=== PATIENT | female | born 1965 | race Caucasian/White ===

== ENCOUNTER 2016-08-13 05:45 | Inpatient (IN) | payer OTHER ==
[2016-07-23 08:23] VITALS: BMI 33.0
--- NOTE | 2016-07-23 08:53 | PAT Medication Instructions ---
Service Date Jul 23, 2016. Current Home Medication List Hydrocodone/Acetaminophen 5MG/325MG ([place] 5MG/325MG), 1 TABLET PO Q4H PRN for N Methylprednisolone (Medrol), 4 MG PO UD Omeprazole (Prilosec), 20 MG PO QAM [Augmentin], 1 TAB PO BID [Lisinop/Hctz], 1 TAB PO DAILY Medication Instructions For Your Scheduled Surgery Methylprednisolone (Medrol), 4 MG PO UD (will finish 07/24/16) Augmentin 1 TAB PO BID (will finish 07/29/16) - Hold the following medications the morning of surgery: Lisinopril/Hctz 1 TAB PO DAILY - Take the following medications the morning of surgery with a sip of water: Omeprazole (Prilosec), 20 MG PO QAM Hydrocodone/Acetaminophen 5MG/325MG ([place] 5MG/325MG), 1 TABLET PO Q4H PRN ( can take up to four hours prior to surgery if needed) - Take the following medications as scheduled the night before surgery: Hydrocodone/Acetaminophen 5MG/325MG ([place] 5MG/325MG), 1 TABLET PO Q4H PRN for N If you have any questions please call us at [phone] or [phone] ( Elizabeth) or [phone]
--- NOTE | 2016-07-23 09:41 | DIAGNOSTIC IMAGING REPORT ---
CHEST PREADMISSION(PA/LAT) CLINICAL HISTORY: Preoperative evaluation. COMPARISON STUDY: Chest radiograph August 03, 2015. FINDINGS: Lung volumes are normal. Lungs are clear. There is no pneumothorax or pleural effusion. Pulmonary vascularity is normal. Cardiac size is normal. Mediastinal contours are normal. There is no evidence of pulmonary edema. Lumbar spine fusion hardware is partially imaged. IMPRESSION: No acute cardiopulmonary findings. Electronically signed by: Jas Michaud M.D. 07/23/2016 9:40 AM Dictated Date/Time: 07/23/2016 9:40 AM
[2016-07-23 09:52] LABS: BASO % 0.2 %; BASO ABS # 0.03 K/uL (0-0.2); COMPLETE YES; EOS % 0.3 %; HEMATOCRIT 40.3 % (37-47); IG% 0.2 %; LYMPH % 32.2 %; LYMPH ABS # 4.35 K/uL (1.2-3.4); MEAN CELL VOLUME 89.4 fL (80-100); MEAN CORPUSCULAR HEMOGLOBIN 29.3 pg (25-34); MEAN CORPUSCULAR HGB CONC 32.8 g/dl (32-36); MEAN PLATELET VOLUME 10.3 fL (7.4-10.4); MONO % 11.4 %; NEUT % 55.7 %; PLATELET COUNT 392 K/uL (130-400); RED BLOOD COUNT 4.51 M/uL (4.2-5.4); WHITE BLOOD COUNT 13.52 K/uL (4.8-10.8)
[2016-07-23 10:05] LABS: BUN/CREATININE RATIO 19.7 (10-20); CALCIUM 9.6 mg/dl (8.5-10.1); CREATININE 0.86 mg/dl (0.60-1.20); POTASSIUM 3.2 mmol/L (3.5-5.1)
[2016-07-23 10:15] LABS: URINE APPEARANCE CLEAR (CLEAR); URINE BILIRUBIN NEG (NEG); URINE COLOR YELLOW; URINE NITRITE NEG (NEG); URINE SPECIFIC GRAVITY 1.004 (1.000-1.030); UROBILINOGEN NEG (NEG)
[2016-07-23 10:26] LABS: MANUAL MICROSCOPIC REQUIRED? NO; REVIEW REQ? NO
--- NOTE | 2016-08-12 09:22 | HISTORY & PHYSICAL EXAMINATION ---
DATE OF ADMISSION: 08/13/2016 HISTORY OF PRESENT ILLNESS: The patient presents to our office with complaint of left-sided neck pain radiating down the left arm into the hand. She has trialed physical therapy as well as pain management injections with modest relief. She states the pain is making it difficult for her to perform normal activities. She denies paresthesias, numbness or weakness. Cervical extension as well as rotation to the left side exacerbates her symptoms. She denies bowel or bladder dysfunction. PAST MEDICAL HISTORY: The patient's medical history is significant for arthritis. PAST SURGICAL HISTORY: Significant for knee arthroscopy, carpal tunnel release, , hernia repair, hysterectomy and tempanomastoidectomy. ALLERGIES: INCLUDE NAPROXEN AND ASPIRIN. MEDICATIONS: None listed. SOCIAL HISTORY: She is . 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 Alcohol none. Tobacco is 10 cigarettes a day x 15 years. REVIEW OF SYSTEMS: Significant for neck pain, arm radiculopathy and fatigue. FAMILY HISTORY: Significant for breast cancer and arthritis. PHYSICAL EXAMINATION: VITAL SIGNS: 5 feet 4 inches; 195 pounds. HEENT: Speech appropriate. CARDIOPULMONARY: No gross abnormalities. ABDOMEN: Soft and nondistended. GENITOURINARY: Deferred. NEUROLOGIC: She has a positive Spurling's on the left, but negative on the right. Strength is intact in bilateral upper extremities. No atrophy bilateral upper extremities. No evidence of ankle clonus. ASSESSMENT: Cervical disc herniation and cervical radiculopathy. PLAN: At this point in time, she has failed conservative therapy and may consider surgical intervention. Surgery would require anterior cervical discectomy and fusion at the C3-C4 level. Risks, benefits, pros, cons and alternatives were outlined in detail. She would like to proceed with the above-mentioned surgical planning. JOELLEN
[~2016-08-13] VITALS: Ht 162.6 cm; Wt 88.7 kg
[2016-08-13] VITALS (13 sets, daily range): BP systolic 99–122; BP diastolic 64–76; PULSE 96–105; TEMP 36.4–36.9; O2SAT 95–99; Ht 162.6 cm; Wt 88.7 kg
[~2016-08-13 05:45] MED LIST: AUGMENTIN PO; HYDR-5688 PO; LISINOP/HCTZ PO; METH1TAB81 PO; OMEP20CA9 PO
[2016-08-13] MEDS ORDERED: LACTATED RINGER'S 1000ML 1,000 ML IV SCH (06:00)
[2016-08-13] MEDS ORDERED: CEFAZOLIN 2000 MG/60 ML D5W IV SCH (06:00)
[2016-08-13] MEDS ORDERED: SCOPOLAMINE 1.5 MG TDSY TD SCH (06:00)
[2016-08-13] MEDS ORDERED: FENTANYL CITRATE INJ 50 MCG/1 ML 2 ML VIAL ONE ×4 (06:38→13:45)
[2016-08-13] MEDS ORDERED: MIDAZOLAM HCL 1 MG/ML 2ML VIAL ONE (06:38)
[2016-08-13] MEDS ORDERED: BACITRACIN 50000 UNIT VIAL ONE (07:03)
[2016-08-13] MEDS ORDERED: LACTATED RINGER'S 1000ML 1,000 ML IV PRN (07:24)
--- NOTE | 2016-08-13 07:29 | History & Physical Bridge Note ---
H&P Re-Evaluation Bridge Note: I have examined the patient, reviewed the History & Physical and in the interval since the performance of the History & Physical I have noted the following changes of clinical significance: No changes noted
[2016-08-13] MEDS ORDERED: MoRPHine SULFATE 10 MG/ML CARP/VIAL IV PRN (07:30)
[2016-08-13] MEDS ORDERED: DiphenhydrAMINE HCL 50 MG/ML VIAL IV PRN ×2 (07:30→09:00)
[2016-08-13] MEDS ORDERED: FENTANYL CITRATE INJ 50 MCG/1 ML 2 ML VIAL IV PRN (07:30)
[2016-08-13] MEDS ORDERED: ONDANSETRON INJ 2 MG/ML 2 ML VIAL IV PRN ×2 (07:30→09:00)
[2016-08-13] MEDS ORDERED: HYDROmorphone INJ 2 MG/ML SYR/VIAL ONE (08:05)
[2016-08-13] MEDS ORDERED: LIDOCAINE HCL 2% 2 ML VIAL (20MG/ML) ONE (08:30)
[2016-08-13] MEDS ORDERED: ONDANSETRON INJ 2 MG/ML 2 ML VIAL ONE (08:30)
[2016-08-13] MEDS ORDERED: NEOSTIGMINE METHYLSULFATE 1 MG/ML 10ML VIAL ONE (08:30)
[2016-08-13] MEDS ORDERED: METOCLOPRAMIDE HCL INJ 5 MG/ML 2 ML VIAL ONE (08:30)
[2016-08-13] MEDS ORDERED: PROPOFOL IV EMULSION 10 MG/ML 20 ML VIAL IV ONE (08:30)
[2016-08-13] MEDS ORDERED: RANITIDINE HCL 25 MG/ML INJ ONE (08:30)
[2016-08-13] MEDS ORDERED: ROCURONIUM BROMIDE 10 MG/ML 5 ML VIAL ONE (08:30)
[2016-08-13] MEDS ORDERED: DEXAMETHASONE SOD INJ 4 MG/ML VIAL ONE (08:30)
[2016-08-13] MEDS ORDERED: METOPROLOL TARTRATE 1 MG/ML VIAL ONE (08:30)
[2016-08-13] MEDS ORDERED: GLYCOPYRROLATE INJ 0.2 MG/ML VIAL ONE (08:30)
[2016-08-13] MEDS ORDERED: FLOSEAL HEMOSTATIC MATRIX 5ML TOP ONE (08:47)
--- NOTE | 2016-08-13 08:55 | [facility] Post Operative Brief Note ---
Immediate Operative Summary Operative Date Aug 13, 2016. Pre-Operative Diagnosis Cervical disc herniation and cervical radiculopathy Post-Operative Diagnosis Cervical disc herniation and cervical radiculopathy Procedure(s) Performed acdf Surgeon Dr Randle Coin Machine Collector Surgeon(s) Amber Murillo PA-C Estimated Blood Loss 25 Findings stenosis Specimens None per surgeon
[2016-08-13] MEDS ORDERED: DEXAMETHASONE INJ 8 MG in SYRINGE 0 ML IV PRN (09:00)
[2016-08-13] MEDS ORDERED: RACEPINEPHRINE 2.25% NEBU SOLN 0.5 ML VIAL INH PRN (09:00)
[2016-08-13] MEDS ORDERED: ACETAMINOPHEN IV 1,000 MG in EMPTY BAG 0 ML IV PRN (09:00)
[2016-08-13] MEDS ORDERED: DO NOT ADMINISTER FLU VACCINE PRN ×3 (09:00)
[2016-08-13] MEDS ORDERED: LORAZEPAM 0.5 MG TAB PO PRN (09:00)
[2016-08-13] MEDS ORDERED: DO NOT ADMINISTER PNEUMOCOCCAL VACCINE PRN ×2 (09:00)
[2016-08-13] MEDS ORDERED: MAGNESIUM HYDROXIDE SUSP 30 ML UDC PO PRN (09:00)
[2016-08-13] MEDS ORDERED: LORAZEPAM INJ 0.5 MG in SYRINGE 0.75 ML IV PRN (09:00)
[2016-08-13] MEDS: DOCUSATE SODIUM 100 MG CAP PO SCH ×2 (09:00→21:49)
[2016-08-13] MEDS ORDERED: NALOXONE HCL 0.4 MG/1 ML VIAL/CARP IV PRN (09:00)
--- NOTE | 2016-08-13 09:14 | DIAGNOSTIC IMAGING REPORT ---
Cervical spine CERVICAL 2 OR 3 VIEWS CLINICAL HISTORY: C3-C4 ACDF fusion TECHNIQUE: Image intensifier COMPARISON STUDY: None FINDINGS: Findings consistent with an anterior cervical fusion and disc spacer placement. This is at C3-C4 IMPRESSION: Anterior cervical fusion Electronically signed by: Jose Armando Lind M.D. 08/13/2016 9:13 AM Dictated Date/Time: 08/13/2016 9:13 AM
[2016-08-13] MEDS ORDERED: DiphenhydrAMINE HCL 50 MG/ML VIAL IV ONE (09:30)
--- NOTE | 2016-08-13 09:30 | OPERATIVE REPORT ---
DATE OF OPERATION: 08/13/2016 PREOPERATIVE DIAGNOSIS: Cervical spondylosis, stenosis with myeloradiculopathy. POSTOPERATIVE DIAGNOSIS: Same. PROCEDURE PERFORMED: 1. Anterior cervical discectomy, bilateral foraminotomy C3-4. 2. Anterior cervical arthrodesis C3-C4. 3. Placement of cornerstone cortical autograft filled with DBM 7 mm in height at C3-4, 4. Application of Nobles plate and screws across C3-C4. SURGEON: Dr. Kamaljit Randle. PLATER BARREL: SOLA Thurston . ANESTHESIA: General. DISPOSITION: The patient awakened and taken to PACU in stable condition. HISTORY OF PATIENT'S PROBLEMS: This is a 51-year-old female that presents with the above-mentioned diagnosis. After failing an extensive course of nonoperative care, elected to undergo the above-mentioned procedure. Risks, benefits, pros, cons, and alternatives were outlined in detail preoperatively. PROCEDURE: The patient was met with preoperatively, case discussed and all questions were addressed. At that point the patient was taken back to operative suite and after undergoing successful general intubation by the department of anesthesia was placed in a supine position on Victorino table with head in Culp wet process miller head. All bony prominences were padded and the eyes were inspected to ensure there was no external pressure placed upon them. At this point, the anterior cervical spine was prepped and draped in a normal sterile fashion. With assistance of fluoroscopy, we identified the C3-4 disc space and a transverse incision was placed along the right anterior aspect of the cervical spine overlying this region. Sharp dissection with the assistance of bipolar electrocautery was performed down to and exposing the anterior cervical spine from C3-C4. We verified our position with fluoroscopy. A self-retaining retractor was placed. I then performed a complete discectomy of C3-4 out to the uncovertebral joints bilaterally including removal of all posterior annular fibers, longitudinal ligament and bilateral foraminotomies addressing severe foraminal disease, particularly on the left. [place] distracting pins were utilized to assist us in our visualization. The endplates were then burred to subcortical bleeding bone and a 7 mm cortical autograft filled with DBM tapped in position. A 14 mm Nobles plate and screws was then applied with the assistance of fluoroscopy. The incision was then copiously irrigated, explored to ensure there was no damage to surrounding structures or remaining bleeding and a 10 round TONI drain inserted, then closed with 2-0 Vicryl in the fascia, 4-0 Monocryl for final skin closure. Steri-Strips and sterile dressing placed. The patient awakened and taken to PACU in stable condition. Due to the complex nature of the procedure, the entire surgery was performed with the operational assistance of SOLA Thurston. The assistant family teacher, under direct supervision, was involved in the actual performance of all aspects of the surgical procedure including hemostasis, tissue retraction and incision, instrument management, patient positioning, and wound closure. I attest to the content of the Intraoperative Record and any orders documented therein. Any exceptio ns are noted below.
[2016-08-13] MEDS ORDERED: LABETALOL HCL IV 5 MG/ML 20ML ONE (09:45)
[2016-08-13] MEDS ORDERED: LABETALOL HCL IV 5 MG/ML 20ML IV PRN (10:00)
--- NOTE | 2016-08-13 10:00 | Anesthesiology Progress Note ---
Anesthesia Post Op Note Date & Time Aug 13, 2016 at 09:59 Vital Signs Pain Intensity: 0 Vital Signs Past 12 Hours Date Time Temp Pulse Resp B/P Pulse Ox O2 Delivery O2 Flow Rate FiO2 08/13/16 09:51 96 20 100 08/13/16 09:51 96 20 08/13/16 09:49 153/109 08/13/16 09:46 100 19 08/13/16 09:46 100 19 98 08/13/16 09:44 169/110 08/13/16 09:42 154/100 08/13/16 09:41 101 17 08/13/16 09:41 100 17 100 08/13/16 09:39 179/102 08/13/16 09:37 148/90 08/13/16 09:36 97 18 08/13/16 09:36 96 18 99 08/13/16 09:34 163/107 08/13/16 09:31 94 22 100 08/13/16 09:31 96 22 08/13/16 09:29 169/107 08/13/16 09:26 94 18 08/13/16 09:26 94 18 97 08/13/16 09:24 167/107 08/13/16 09:21 92 19 08/13/16 09:21 92 19 99 08/13/16 09:19 159/98 08/13/16 09:17 152/90 08/13/16 09:16 96 16 95 08/13/16 09:16 96 16 08/13/16 09:14 155/102 08/13/16 09:13 146/85 08/13/16 09:11 96 22 08/13/16 09:11 36.5 95 16 146/85 93 Mask 10 08/13/16 09:11 96 22 93 08/13/16 06:49 36.9 99 20 122/76 97 Room Air Notes Mental Status: alert / awake / arousable, participated in evaluation Pt Amnestic to Procedure: Yes Nausea / Vomiting: adequately controlled Pain: adequately controlled Airway Patency, RR, SpO2: stable & adequate BP & HR: stable & adequate Hydration State: stable & adequate Anesthetic Complications: no major complications apparent Pt doing well. Some blood in mouth upon emergence, unclear source. Intubation was easy, appeared a traumatic, but tissues did look a little friable. Pt thinks this may be from coughing due to allergies. She feels fine. DBP was elevated but now improved after labetalol. Currently 135/91.
[2016-08-13] MEDS ORDERED: ACETAMINOPHEN IV 1000MG/100ML IV PRN (13:30)
[2016-08-13] MEDS ORDERED: MoRPHine SULFATE 10 MG/ML CARP/VIAL ONE (13:45)
[2016-08-13] MEDS ORDERED: HYDROmorphone INJ 1 MG/ML SYR ONE (14:56)
[2016-08-13] MEDS: CHECK SCOPOLAMINE PATCH PLACEMENT SCH ×2 (16:20→23:40)
[2016-08-13] MEDS: CEFAZOLIN IV 2,000 MG in DEXTROSE 5% 50ML 50 ML IV SCH ×2 (16:24→23:38)
[2016-08-13] MEDS: DEXAMETHASONE INJ 6 MG in SYRINGE 0 ML IV SCH ×2 (16:24→23:38)
[2016-08-13] MEDS: LACTATED RINGER'S 1000ML 1,000 ML IV SCH ×2 (16:25→23:38)
[2016-08-13] MEDS: OXYCODONE HCL IR 5 MG TAB (IMMEDIATE RELEASE) PO PRN ×2 (17:02→23:42)
[2016-08-13] MEDS ORDERED: HYDROmorphone INJ 1 MG/ML SYR IV PRN (19:15)
[2016-08-13] MEDS ORDERED: HYDROmorphone INJ 0.5 MG/0.5 ML SYR IV PRN (19:15)
[2016-08-14] VITALS (9 sets, daily range): BP systolic 108–123; BP diastolic 71–77; PULSE 98–111; TEMP 36.5–36.8; O2SAT 94–98
[2016-08-14] MEDS: OXYCODONE HCL IR 5 MG TAB (IMMEDIATE RELEASE) PO PRN ×3 (03:50→13:26)
[2016-08-14] MEDS ORDERED: HYDROmorphone INJ 1 MG/ML SYR IV PRN (06:00)
[2016-08-14] MEDS ORDERED: HYDROmorphone INJ 0.5 MG/0.5 ML SYR IV PRN (06:00)
[2016-08-14] MEDS ORDERED: RXC5 PO (07:45)
--- NOTE | 2016-08-14 07:46 | Discharge Instructions ---
Discharge Instructions Admission Reason for Admission: Spinal Stenosis Discharge Discharge Diagnosis / Problem: stenosis Discharge Goals Goal(s): Improve function Activity Recommendations Activity Limitations: per Instructions/Follow-up section . Instructions / Follow-Up Instructions / Follow-Up ACTIVITY RECOMMENDATIONS: SELF CARE INSTRUCTIONS AFTER CERVICAL FUSIONS 1. No smoking. Smoking drastically decreases the chance of a solid fusion. 2. No bending, lifting more than 5 pounds, or twisting (roll like a log when turning in bed). 3. You may shower 3 days after surgery. Thoroughly dry wound. Do not soak in the tub. 4. Cervical collar: Must be worn at all times including sleeping. You may remove the brace only to bath, eat and if you are sitting in a recliner. 5. Please walk as much as you can for exercise. Gradually increase the distance that you walk as your endurance increases. SPECIAL CARE INSTRUCTIONS: VERY IMPORTANT TO READ AND REVIEW A. Do not take any anti-inflammatory medications (i.e. Indocin, Advil, Aspirin, Naprosyn, Aleve, Motrin, etc.) as these may inhibit the chance of a solid fusion. Tylenol is okay to take. B. Your surgical incision has been closed with a cosmetic suture under the skin that will dissolve in about 6 weeks. In 14 days, you can use a pair of clean scissors and cut the suture that is left outside of the skin at the ends of your incision. C. Complications are uncommon, but please contact us if you have any signs or symptoms of: 1. wound infection (fever higher than 102.5 degrees F, redness, separation of wound, drainage, or increasing pain from the incision) 2. blood clots in legs (pain, swelling, redness and warmth in legs) 3. urinary tract infection (fever higher than 102.5 degrees, burning upon urination or increased frequency of urination) 4. nerve problems (inability to walk on your toes or heels, numbness, loss of bowel or bladder control) 5. any other symptoms that concern you. D. Please call the office at if you have any concerns or questions about your operation or recovery. MANAGING PAIN AFTER SPINAL SURGERY 1. Narcotic medication is intended for short-term use and will be provided for surgical pain. Surgical pain usually lasts for a period of 4-6 weeks. Narcotic medication includes Percocet, Vicodin, Darvocet, Tylenol #3 or Lortab. 2. Longer-term pain is more appropriately treated with non-narcotic medication such as Tylenol ES. 3. Muscle spasm is not appropriately treated with narcotics. Muscle relaxers such as Soma, Flexeril or Skelaxin can be used along with Tylenol ES. 4. Remember that we all live with some "aches and pains". This is not unusual or uncommon after an injury or as we get older. 5. We will provide appropriate medication within the normal guidelines of their prescribed use. We will also be very cautious and aware of potential abuse and extended duration of patients' medication needs. 6. Please allow 2-3 days to process refills. Prescriptions will not be mailed but must be picked up at the office. FOLLOW UP VISIT: Keep your scheduled follow-up appointment. Any questions, please call the office at . Current Hospital Diet Patient's current hospital diet: Clear Liquid Diet Discharge Diet Recommended Diet: Regular Diet Procedures Procedures Performed: acdf Pending Studies Studies pending at discharge: no Medical Emergencies . Who to Call and When: Medical Emergencies: If at any time you feel your situation is an emergency, please call 911 immediately. . Non-Emergent Contact Non-Emergency issues call your: Primary Care Provider . "Provider Documentation" section prepared by Kamaljit Randle. VTE Core Measure Inpt VTE Proph given/why not?: Marcie Licona, SCD's
[2016-08-14] MEDS: CHECK SCOPOLAMINE PATCH PLACEMENT SCH (08:18)
[2016-08-14] MEDS: DEXAMETHASONE INJ 6 MG in SYRINGE 0 ML IV SCH (08:19)
[2016-08-14] MEDS: CEFAZOLIN IV 2,000 MG in DEXTROSE 5% 50ML 50 ML IV SCH (08:24)
[2016-08-14] MEDS: DOCUSATE SODIUM 100 MG CAP PO SCH (08:30)
[2016-08-14] MEDS ORDERED: LISINOPRIL/HCTZ 10/12.5MG TAB PO SCH (09:00)
[2016-08-14] MEDS ORDERED: PANTOprazole SOD 40 MG TAB PO SCH (09:00)
--- NOTE | 2016-08-14 17:33 | DISCHARGE SUMMARY ---
PRINCIPAL DIAGNOSIS: Cervical spinal stenosis. HOSPITAL COURSE: On August 13, patient underwent anterior cervical discectomy and fusion C3-C4, tolerated this well and taken to the orthopedic floor postoperatively. Postop day #1, she was up and ambulatory. No swallowing issues. No hoarseness. Arm symptoms improved. Subsequently discharged home. Discharge orders and instructions found on the chart for further review.
[2016-08-15] MEDS ORDERED: BISACODYL 5 MG TABEC PO PRN (06:00)
[2016-08-15] MEDS ORDERED: BISACODYL 10 MG SUPP PR PRN (06:00)
[2016-08-15] MEDS ORDERED: POLYETHYLENE (MIRALAX) 17 GM PACK PO SCH (09:00)
[2016-08-16] MEDS ORDERED: SCOPOLAMINE 1.5 MG TDSY TD SCH (09:00)
[2016-08-16] MEDS ORDERED: CHECK SCOPOLAMINE PATCH PLACEMENT SCH (16:00)
== END 2016-08-14 13:30 | disposition home or self-care (01) | DRG 473 ==
LOC: ENRESERVTM → ENRESERVDT → C.ACU 05:45 → C.3E 08:59
PROVIDERS: ADMIT Orthopaedic Surgery Orthopaedic Surgery of the Spine; ATTEND Orthopaedic Surgery Orthopaedic Surgery of the Spine
PROC: 0RG1070 Fusion of Cervical Vertebral Joint with Autologous Tissue Substitute, Anterior Approach, Anterior Column, Open Approach (ICD-10-PCS; principal; 2016-08-13 07:45)
PROC: 0RT30ZZ Resection of Cervical Vertebral Disc, Open Approach (ICD-10-PCS; principal; 2016-08-13 07:45)
DX: M47.12 Other spondylosis with myelopathy, cervical region (principal); M48.02 Spinal stenosis, cervical region; M50.21 Other cervical disc displacement, high cervical region; F17.210 Nicotine dependence, cigarettes, uncomplicated; Z90.710 Acquired absence of both cervix and uterus; Z80.3 Family history of malignant neoplasm of breast

== ENCOUNTER 2017-01-11 13:45 | Emergency (ER) | payer OTHER ==
[~2017-01-11] VITALS: Ht 162.6 cm; Wt 85.7 kg
[~2017-01-11 13:45] MED LIST changes: +RXC5 PO
[2017-01-11 13:47] VITALS: TEMP 36.7; Ht 162.6 cm; Wt 85.7 kg
[2017-01-11] MEDS ORDERED: OXYCODONE HCL IR 5 MG TAB (IMMEDIATE RELEASE) PO STA (13:58)
[2017-01-11] MEDS ORDERED: LDN500 PO (14:26)
[2017-01-11] MEDS ORDERED: TRAM-10 PO (14:26)
[2017-01-11] MEDS ORDERED: GABA-113 PO (14:26)
--- NOTE | 2017-01-11 14:43 | DIAGNOSTIC IMAGING REPORT ---
L-SPINE MIN 4 VIEWS ROUTINE HISTORY: Pain LBP to LLE COMPARISON: None. FINDINGS: There is no fracture. No subluxation. Evidence for prior posterior laminectomy and fusion from L3 through S1. Disc spaces are present at L4-L5 and L5-S1. There is some lucency surrounding the interpedicular screws of L3 which may indicate partial loosening. IMPRESSION: 1. Postoperative and mild degenerative change as described. 2. No acute process. 3. Potential loosening of the interpedicular screws at the L3 level. The above report was generated using voice recognition software. It may contain grammatical, syntax or spelling errors. Electronically signed by: Jose Armando Lind M.D. 01/11/2017 2:42 PM Dictated Date/Time: 01/11/2017 2:41 PM
[2017-01-11 15:01] LABS: URINE APPEARANCE CLEAR (CLEAR); URINE BILIRUBIN NEG (NEG); URINE COLOR YELLOW; URINE NITRITE NEG (NEG); URINE SPECIFIC GRAVITY 1.011 (1.000-1.030); UROBILINOGEN NEG (NEG)
[2017-01-11 15:07] LABS: MANUAL MICROSCOPIC REQUIRED? NO; REVIEW REQ? NO
[2017-01-11 15:23] VITALS: BP 156/102; PULSE 86; O2SAT 99
[2017-01-11] MEDS ORDERED: OXYCODONE IR HOME PACK PO ONE (15:30)
--- NOTE | 2017-01-11 15:50 | EMERGENCY ROOM VISIT NOTE ---
History Report prepared by Laisha: Lisa Levine Under the Supervision of: Dr. Myles Estevez D.O. First contact with patient: 13:52 Chief Complaint: BACK PAIN Stated Complaint: LOWER BACK, LEFT LEG PAIN-POPPING IN LOWER BACK History of Present Illness The patient is a 51 year old female who presents to the Emergency Room with complaints of worsening lower back pain starting several weeks ago. The patient has a history of back problems and has had 2 back surgeries in the past. Her last back surgery was August 2015. A couple weeks ago, she started having worsening lower back pain. She states that she has been taking Tylenol and ibuprofen to no significant relief. She denies having any other pain medications , including Tramadol. She is having popping in her lower back when she moves her left leg. She notes that she is sometimes unaware that she has to urinate. She denies any numbness or weakness in her legs. She has fallen a couple times in the past from her left leg, but denies any recent falls or injury. She has a history of arthritis. Source of History: patient Onset: several weeks ago Position: back (lower) Quality: other (pain) Timing: worsening Associated Symptoms: No weakness, No numbness Note: Pt reports popping in back with left leg movement, unaware of having to urinate. Review of Systems See HPI for pertinent positives & negatives. A total of 10 systems reviewed and were otherwise negative. Past Medical & Surgical Medical Problems: (1) Cervical stenosis of spinal canal Family History No pertinent family history stated. Social History Smoking Status: Former Smoker Marital Status: Housing Status: lives with significant other Current/Historical Medications Scheduled Etodolac (Etodolac), 1 TAB PO BID Gabapentin (Neurontin), 300 MG PO TID Omeprazole (Prilosec), 20 MG PO QAM [Lisinop/Hctz], 1 TAB PO DAILY Scheduled PRN Hydrocodone/Acetaminophen 5MG/325MG ([place] 5MG/325MG), 1 TABLET PO Q4H PRN for N Tramadol (Ultram), 50 MG PO Q8H PRN for Pain Allergies Coded Allergies: Aspirin (Verified Allergy, Unknown, RASH, SICK TO STOMACH, 01/11/17) Levofloxacin (Unverified Allergy, Unknown, NAUSEA AND VOMITING, 01/11/17) Naproxen (Verified Allergy, Unknown, RASH, GI upset, 01/11/17) no issues with other NSAIDs per pt Physical Exam Vital Signs Date Time Temp Pulse Resp B/P (MAP) Pulse Ox O2 Delivery O2 Flow Rate FiO2 01/11/17 15:23 86 20 156/102 99 Room Air 01/11/17 13:47 36.7 99 18 164/110 99 Room Air Physical Exam GENERAL: Patient is awake, alert, and in no acute distress. Patient is resting comfortably and showing no signs of anxiety EYES: The conjunctivae are clear. The pupils are round and reactive. EARS, NOSE, MOUTH AND THROAT: The nose is without any evidence of any deformity. Mucous membranes are moist tongue is midline NECK: The neck is nontender and supple. RESPIRATORY: Normal respiratory effort is noted there is no evidence of wheezing rhonchi or rales CARDIOVASCULAR: Regular rate and rhythm noted there no murmurs rubs or gallops normal S1 normal S2 GASTROINTESTINAL: The abdomen is soft. Bowel sounds are present in all quadrants. Abdomen is nontender BACK: Lumbar spine tenderness to palpation, ROM appeared intact. MUSCULOSKELETAL/EXTREMITIES: There is no evidence of gross deformity full range of motion is noted in the hips and shoulders SKIN: There is no obvious evidence of any rash. There are no petechiae, pallor or cyanosis noted. NEUROLOGIC: Patient is awake alert and oriented x3 strength is symmetric patellar reflexes are 2+ bilaterally, Achilles tendon reflexes are 2+ bilaterally, great toe range was symmetric. Medical Decision & Procedures ER Provider Diagnostic Interpretation: X-ray results as stated below per interpretation by me and the radiologist. L-SPINE MIN 4 VIEWS ROUTINE HISTORY: Pain LBP to LLE COMPARISON: None. FINDINGS: There is no fracture. No subluxation. Evidence for prior posterior laminectomy and fusion from L3 through S1. Disc spaces are present at L4-L5 and L5-S1. There is some lucency surrounding the interpedicular screws of L3 which may indicate partial loosening. IMPRESSION: 1. Postoperative and mild degenerative change as described. 2. No acute process. 3. Potential loosening of the interpedicular screws at the L3 level. The above report was generated using voice recognition software. It may contain grammatical, syntax or spelling errors. Electronically signed by: Jose Armando Lind M.D. 01/11/2017 2:42 PM Dictated Date/Time: 01/11/2017 2:41 PM Laboratory Results Test 01/11/17 14:45 Urine Color YELLOW Urine Appearance CLEAR (CLEAR) Urine pH 7.0 (4.5-7.5) Urine Specific [place] 1.011 (1.000-1.030) Urine Protein NEG (NEG) Urine Glucose (UA) NEG (NEG) Urine Ketones NEG (NEG) Urine Occult Blood NEG (NEG) Urine Nitrite NEG (NEG) Urine Bilirubin NEG (NEG) Urine Urobilinogen NEG (NEG) Urine Leukocyte Esterase NEG (NEG) Laboratory results per my review. Medications Administered Medications (Trade) Dose Ordered Sig/Gaeb Route Start Time Stop Time Status Last Admin Dose Admin Oxycodone HCl (Roxicodone Immediate Rel Tab) 5 mg NOW STAT PO 01/11/17 13:58 01/11/17 13:59 DC 01/11/17 14:12 5 MG Oxycodone HCl (Roxicodone Immediate Rel 5MG Home Pack) 1 homepack UD ONCE PO 01/11/17 15:30 01/11/17 15:31 DC 01/11/17 15:48 1 HOMEPACK ED Course 1355: The patient was evaluated in room B4B. A complete history and physical examination were performed. 1358: Oxycodone HCl 5 mg PO. 1521: Upon reevaluation, the patient is resting comfortably. I discussed the results and treatment plan with her. She verbalized agreement of the treatment plan. She was discharged home. 1530: Oxycodone HCl 1 homepack PO. Medical Decision Prior records/ancillary studies reviewed. Triage Nursing notes reviewed. The patient's history was concerning for back pain. Differential diagnosis: Etiologies such as musculoskeletal, disc herniation, fracture, aortic disease, metastatic disease, cord compression, discitis, infection, renal colic, gastrointestinal, acute exacerbation of chronic back pain, sciatica, cauda equina, as well as others were entertained. The patient is a 51-year-old female who presented to the emergency department with low back pain. The patient has a history of lumbar surgery in the past. X- rays revealed a possible area of failure of some of the mechanical surgical hardware. I discussed the patient's review graphic studies with her. I discussed her case with the emergency Department case management and they're trying to get the patient an appointment with her primary surgeon this week. She is neurologically intact. She was encouraged to rest and avoid any strenuous activity. She was also encouraged to follow-up with her general orthopedic surgeon this week but return to the emergency Department immediately symptoms change worsen or the need arises. [place] Drug Monitoring Program Search Results: patient reviewed within database Drug Monitoring Findings: Patient filled 90 of Tramadol on December 18. When asked, patient lied about having narcotics. Medication Reconcilliation Current Medication List: was personally reviewed by me Blood Pressure Screening Patient's blood pressure: Elevated blood pressure Blood pressure disposition: Elevated BP felt to be situational Impression Primary Impression: Low back pain Scribe Attestation The scribe's documentation has been prepared under my direction and personally reviewed by me in its entirety. I confirm that the note above accurately reflects all work, treatment, procedures, and medical decision making performed by me. Departure Information Dispostion Home / Self-Care Referrals Fransisco Busby M.D. (PCP) Kamaljit RandleD.O. Forms HOME CARE DOCUMENTATION FORM, IMPORTANT VISIT INFORMATION Patient Instructions Lumbar Pain Causes, My [facility] Additional Instructions Follow-up with your primary spinal surgeon this week for reevaluation. Rest and avoid any strenuous activity. Continue all medications as prescribed.
== END 2017-01-11 15:50 | disposition home or self-care (01) ==
LOC: C.EDB 13:47
DX: M54.5 Low back pain (principal); Z87.891 Personal history of nicotine dependence

== ENCOUNTER → 2017-09-11 | Outpatient (CLI) | payer OTHER ==
[~2017-09-11] MED LIST changes: -AUGMENTIN PO; +GABA-113 PO; -HYDR-5688 PO; -LISINOP/HCTZ PO; +LSN/10125 PO; -METH1TAB81 PO; +TRAM-10 PO
--- NOTE | 2017-09-11 09:44 | DIAGNOSTIC IMAGING REPORT ---
LUMBAR SPINE CT WITHOUT CONTRAST CLINICAL HISTORY: Lumbar spine pain. Bilateral hip pain. COMPARISON STUDY: Lumbar spine CT April 09, 2017. TECHNIQUE: Axial images of the lumbar spine were obtained without IV contrast. Sagittal and coronal reconstructions were viewed. FINDINGS: The patient is status post L4-L5 and L5-S1 discectomies with interbody spacer placement. There is no significant bony fusion at these levels. There are bilateral pedicle screws at the L3, L4, L5 and S1 levels. There is a posterior decompression from L4 through S1. Bilateral iliac bolts have been placed in the interim. There is no acute lumbar spine fracture. The hardware is intact. There is no CT evidence for loosening. The central canal and neural foramen are suboptimally assessed by CT. There is a suspected mild disc bulge at L2-L3. There is probable mild narrowing of the central canal and mild to moderate narrowing of the left neural foramen at this level. There is no evidence for severe central canal stenosis on this exam. No suspicious osseous lesions are present. Paravertebral soft tissues are unremarkable. Sacroiliac joints are intact with mild osteoarthritis. IMPRESSION: 1. Status post L4-L5 and L5-S1 discectomies and posterior decompression with L3-S1 bilateral pedicle screw fusion and interval placement of bilateral iliac bolts. Hardware intact. 2. No acute lumbar spine fractures. 3. No evidence for severe central canal stenosis. Probable mild central canal stenosis at L2-L3 with moderate left neural foraminal stenosis at this level. Electronically signed by: Jas Michaud M.D. 09/11/2017 9:42 AM Dictated Date/Time: 09/11/2017 9:28 AM
== END | disposition home or self-care (01) ==
LOC: C.CTS 09:08
PROVIDERS: ATTEND Physician Assistant
DX: M54.16 Radiculopathy, lumbar region (principal); Z98.1 Arthrodesis status

== ENCOUNTER → 2018-01-01 | Outpatient (CLI) | payer OTHER ==
[~2018-01-01] MED LIST changes: +ETOD500T95 PO; -TRAM-10 PO
[2018-01-01 16:35] LABS: BASO % 0.3 %; BASO ABS # 0.03 K/uL (0-0.2); EOS % 2.1 %; EOS ABS # 0.22 K/uL (0-0.5); HEMOGLOBIN 12.8 g/dL (12.0-16.0); IG# 0.01 K/uL (0.00-0.02); LYMPH % 35.7 %; LYMPH ABS # 3.68 K/uL (1.2-3.4); MEAN CORPUSCULAR HGB CONC 33.7 g/dl (32-36); MEAN PLATELET VOLUME 10.5 fL (7.4-10.4); MONO % 5.2 %; MONO ABS # 0.54 K/uL (0.11-0.59); NEUT % 56.6 %; NEUT ABS # 5.84 K/uL (1.4-6.5); PLATELET COUNT 363 K/uL (130-400); WHITE BLOOD COUNT 10.32 K/uL (4.8-10.8)
[2018-01-01 16:43] LABS: INR 0.9 (0.9-1.1); PTT PATIENT 27.3 SECONDS (21.0-31.0)
[2018-01-01 17:01] LABS: BLOOD UREA NITROGEN 15 mg/dl (7-18); CALCIUM 9.8 mg/dl (8.5-10.1); CARBON DIOXIDE 29 mmol/L (21-32); CREATININE 1.05 mg/dl (0.60-1.20); GLUCOSE 97 mg/dl (70-99); POTASSIUM 3.9 mmol/L (3.5-5.1); SODIUM 138 mmol/L (136-145)
--- NOTE | 2018-01-01 18:48 | DIAGNOSTIC IMAGING REPORT ---
CHEST 2 VIEWS ROUTINE HISTORY: 52 years-old Female T84.84XA, PT WENT TO LAB [facility] NEXT preoperative exam. No acute chest complaints COMPARISON: Chest radiograph 07/23/2016 TECHNIQUE: PA and lateral views of the chest FINDINGS: Cardiac silhouette is upper limits of normal in size, stable. Opacity about the right cardiophrenic angle suggests prominent epicardial fat pad, unchanged. Calcification of the aorta. No pneumothorax, pleural effusion, focal airspace consolidation or overt pulmonary edema. Bones of the chest appear grossly intact. Fusion hardware of the lumbar spine is partially imaged. IMPRESSION: No acute process. The above report was generated using voice recognition software. It may contain grammatical, syntax or spelling errors. Electronically signed by: Ashwin Hickman M.D. 01/01/2018 6:47 PM Dictated Date/Time: 01/01/2018 6:46 PM
== END | disposition home or self-care (01) ==
LOC: C.CPL 15:55
PROVIDERS: ATTEND Orthopaedic Surgery Orthopaedic Surgery of the Spine
DX: T84.84XA Pain due to internal orthopedic prosthetic devices, implants and grafts, initial encounter (principal); Y83.1 Surgical operation with implant of artificial internal device as the cause of abnormal reaction of the patient, or of later complication, without mention of misadventure at the time of the procedure

== ENCOUNTER → 2018-01-13 | Day surgery (SDC) | payer OTHER ==
[2017-12-30 13:14] VITALS: BMI 32.0
[~2018-01-13] VITALS: Ht 162.6 cm; Wt 86.4 kg
[~2018-01-13] MED LIST changes: +ACETAMINOPHEN 325 MG TAB PO PRN; +ACETAMINOPHEN 500 MG TAB PO SCH; +ATROPINE SULFATE 0.1 MG/ML 5ML SYR IV PRN; +BACITRACIN 50000 UNIT VIAL ONE; +BUPIVACAINE/EPINEPHRINE 0.5% MPF 1:200,000 30 ML VIAL ONE; +CEFAZOLIN 2000MG IV PUSH 15 ML IV SCH; +CHECK SCOPOLAMINE PATCH PLACEMENT SCH; +CeleBREX 200 MG CAP PO SCH; +DEXAMETHASONE SOD INJ 4 MG/ML VIAL ONE; +EpHEDrine SULFATE INJ 50 MG/ML AMP IV PRN; +FENTANYL CITRATE INJ 50 MCG/1 ML 2 ML VIAL IV PRN; +FENTANYL CITRATE INJ 50 MCG/1 ML 2 ML VIAL ONE; +FLOSEAL HEMOSTATIC MATRIX 10ML TOP ONE; +GABAPENTIN 900 MG PO SCH; +GLYCOPYRROLATE INJ 0.2 MG/ML VIAL ONE; +HYDROmorphone INJ 1 MG/ML SYR IV PRN; +HYDROmorphone INJ 2 MG/ML SYR/VIAL IV PRN; +HYDROmorphone INJ 2 MG/ML SYR/VIAL ONE; +KETOROLAC TROMETHAMINE 30 MG/ML VIAL IV. PRN; +KETOROLAC TROMETHAMINE 30 MG/ML VIAL ONE; +LACTATED RINGER'S 1000ML 1,000 ML IV SCH; +LIDOCAINE HCL 2% 2 ML VIAL (20MG/ML) ONE; +METOCLOPRAMIDE HCL INJ 5 MG/ML 2 ML VIAL ONE; +METOPROLOL TARTRATE 1 MG/ML VIAL ONE; +MIDAZOLAM HCL 1 MG/ML 2ML VIAL ONE; +NEOSTIGMINE METHYLSULFATE 1 MG/ML 10ML VIAL ONE; +ONDANSETRON INJ 2 MG/ML 2 ML VIAL IV PRN; +ONDANSETRON INJ 2 MG/ML 2 ML VIAL ONE; +OXYCODONE HCL IR 5 MG TAB (IMMEDIATE RELEASE) PO PRN; +PHENYLEPHRINE 100MCG/ML 5ML SYR IV PRN; +PROMETHAZINE HCL INJ 12.5 MG in SODIUM CHLORIDE 0.9% 50ML 50 ML IV PRN; +PROPOFOL IV EMULSION 10 MG/ML 20 ML VIAL ONE; +RANITIDINE HCL 25 MG/ML INJ ONE; +ROCURONIUM BROMIDE 10 MG/ML 5 ML VIAL ONE; +SCOPOLAMINE 1.5 MG TDSY TD SCH
[2018-01-13 10:24] VITALS: BP 127/88; PULSE 81; TEMP 36.6; O2SAT 97; Ht 162.6 cm; Wt 86.4 kg
--- NOTE | 2018-01-13 12:44 | History and Physical ---
History & Physical Date Jan 13, 2018. Chief Complaint Chronic SI joint pain History of Present Illness The patient is a 52 year old female with complaints of chronic SI joint pain Past Medical/Surgical History Medical Problems: (1) Cervical stenosis of spinal canal Additional History Hepatic Disease: No Endocrine Disorder: No Kidney Disease: No Hypertension: Yes Heart Disease: No Bleeding Tendencies: No Infectious Diseases: No Allergies Coded Allergies: Celecoxib (Verified Allergy, Intermediate, rash, 01/13/18) Aspirin (Verified Allergy, Unknown, RASH, SICK TO STOMACH, 01/13/18) Levofloxacin (Verified Allergy, Unknown, NAUSEA AND VOMITING, RASH, 01/13/18 ) Naproxen (Verified Allergy, Unknown, RASH, GI upset, 01/13/18) no issues with other NSAIDs per pt Home Medications Scheduled Etodolac (Etodolac), 1 TAB PO BID Gabapentin (Neurontin), 300 MG PO TID Hctz/Lisinopril (Lisinopril/Hctz 10/12.5 Mg), 1 TAB PO QAM Omeprazole (Prilosec), 20 MG PO QAM Scheduled PRN Oxycodone HCl (Oxycodone HCl), 5-10 MG PO Q4H PRN for Moderate - severe pain Physical Examination Skin: warm/dry, no rash Eyes: normal inspection, EOMI, sclerae normal ENT: normal ENT inspection, pharynx normal Head: normocephalic, atraumatic Neck: supple, no adenopathy, trachea midline Respiratory/Chest: lungs clear, normal breath sounds, no respiratory distress Cardiovascular: regular rate, rhythm, no edema, no murmur Abdomen / GI: normal bowel sounds, non tender Back: normal inspection Extremities: normal inspection, normal range of motion Neurologic/Psych: no motor/sensory deficits, alert, normal reflexes, oriented x 3 Diagnosis Painful hardware bilateral SI joints Plan of Treatment Removal of iliac bolts
--- NOTE | 2018-01-13 14:20 | [facility] Operative Report ---
Operative Report Operative Date Jan 13, 2018. Pre-Operative Diagnosis Painful Hardware Sacroiliac Joints Post-Operative Diagnosis same Procedure(s) Performed Removal Of Iliac Bolts Surgeon Dr. Kamaljit Randle Body Welder Surgeon(s) Amber Murillo PA-C Estimated Blood Loss 50mL Specimens A. Explanted Iliac Hardware Anesthesia Type General Description of Procedure Patient was met with preoperatively case discussed all questions addressed. After informed consent obtained patient was taken to the operative suite underwent intubation placed in a prone position on the Victorino table on top of the Tony frame. All bony prominences well-padded eyes inspected to ensure no external pressure placed upon the. This point identified the bilateral SI bolts in the AP plane. 2 small incisions were then placed directly above the insertion of the bolts. Sharp dissection with the assistance of Bovie cautery was performed down to and exposing the end of the sulema connector in the vault. Began with the left side. The end caps remove the connector removed. There was copious irrigated and packed with some Surgicel and then proceeded to the right side. Sharp dissection again with Bovie cautery was performed on November exposing the connector and iliac bolts. The connector was removed all removed without difficulty. Again some Surgicel was placed to assist in coagulation. Both incisions were then copiously irrigated and closed with 1 Vicryl in the fascia 2-0 Vicryl subcutaneously and 4-0 Monocryl for fashion closure Steri- Strips sterile dressings placed. Patient will continue to PACU in a stable condition. I attest to the content of the Intraoperative Record and any orders documented therein. Any exceptions are noted below.
--- NOTE | 2018-01-13 14:23 | Discharge Instructions ---
Discharge Instructions Date of Service Jan 13, 2018. Admission Reason for Admission: Pain D/T Internal Orthopedic Prosthetic Devices, I Discharge Discharge Diagnosis / Problem: painful hardware SI joint Discharge Goals Goal(s): Decrease discomfort Activity Recommendations Activity Limitations: as noted below Lifting Limitations: no more than 10 pounds Exercise/Sports Limitations: gradually increase as tolerated May Resume Sexual Activity: after two weeks Shower/Bathe: may shower/bathe in 3 days . Instructions / Follow-Up Instructions / Follow-Up 2 week appointment Current Hospital Diet Patient's current hospital diet: Discharge Diet Recommended Diet: Regular Diet Procedures Procedures Performed: Removal Of Iliac Bolts Pending Studies Studies pending at discharge: no Medical Emergencies . Who to Call and When: Medical Emergencies: If at any time you feel your situation is an emergency, please call 911 immediately. . Non-Emergent Contact Non-Emergency issues call your: Primary Care Provider . "Provider Documentation" section prepared by Kamaljit Randle. .
[2018-01-13 15:20] VITALS: BP 109/75; PULSE 75; TEMP 36.8; O2SAT 93
[2018-01-13 15:50] VITALS: BP 111/74; PULSE 77; O2SAT 97
--- NOTE | 2018-01-13 15:57 | Anesthesiology Progress Note ---
Anesthesia Post Op Note Date & Time Jan 13, 2018 at 15:56 Vital Signs Vital Signs Past 12 Hours Date Time Temp Pulse Resp B/P (MAP) Pulse Ox O2 Delivery O2 Flow Rate FiO2 01/13/18 15:20 36.8 75 20 109/75 93 Room Air 01/13/18 15:05 36.6 75 14 115/81 98 Room Air 01/13/18 14:55 76 15 117/78 98 Room Air 01/13/18 14:45 80 18 124/89 100 Oxymask 8 01/13/18 14:37 36.2 79 16 137/91 100 Oxymask 8 01/13/18 10:24 36.6 81 20 127/88 (101) 97 Room Air Notes Mental Status: alert / awake / arousable, participated in evaluation Pt Amnestic to Procedure: Yes Nausea / Vomiting: adequately controlled Pain: adequately controlled Airway Patency, RR, SpO2: stable & adequate BP & HR: stable & adequate Hydration State: stable & adequate Anesthetic Complications: no major complications apparent
== END | disposition home or self-care (01) ==
LOC: C.ACU 09:50
PROVIDERS: ATTEND Orthopaedic Surgery Orthopaedic Surgery of the Spine
DX: T84.84XA Pain due to internal orthopedic prosthetic devices, implants and grafts, initial encounter (principal); Y83.1 Surgical operation with implant of artificial internal device as the cause of abnormal reaction of the patient, or of later complication, without mention of misadventure at the time of the procedure; E66.9 Obesity, unspecified; K21.9 Gastro-esophageal reflux disease without esophagitis; I10 Essential (primary) hypertension; Z68.32 Body mass index [BMI] 32.0-32.9, adult; Z79.899 Other long term (current) drug therapy; Z87.891 Personal history of nicotine dependence; Z88.6 Allergy status to analgesic agent; Z88.1 Allergy status to other antibiotic agents

== ENCOUNTER 2024-06-21 18:25 | Inpatient (IN) ==
--- NOTE | 2024-06-21 18:58 | Emergency Department Note ---
Impression & Plan Hypoxia, Shortness of breath, Flu-like symptoms, Community acquired pneumonia ED Provider Note NAME: JOSIAH RILEY AGE: 59 SEX: Female INFORMANT: Patient ED PROVIDER(S): Bob Mccarthy MD CHIEF COMPLAINT: Shortness of breath PLAN: Disposition: Admitted Outpatient prescription management: none Referral: None MEDICAL DECISION MAKING: Patient presented because of shortness of breath. She had hypoxia on initial vital signs. She did well with supplemental nasal cannula oxygen. Patient's temperature was borderline. She was given a DuoNeb and Solu-Medrol. Blood work, imaging, and ECG performed. Patient's twelve-lead ECG revealed sinus tachycardia without acute ischemia. BioFire testing done. Patient was given Tylenol. BioFire was reported as negative. Chest x-ray did not reveal any focal infiltrate. CT PE study performed and there was multifocal infiltrates noted. Patient was treated with Rocephin and doxycycline. She was feeling better on reassessment. Patient's BNP and cardiac troponin are borderline elevated. Further management in the hospital will be necessary. Consultation was made with the [facility], Dr. Frankel. Patient was evaluated in the ER and admitted for further management Care/management discussed with: publication manager Level of care consideration(s): After review of the information above and other included data, I feel the patient requires escalation of care to admission Triage Nursing notes: reviewed and agree them. Vital Signs: reviewed and remarkable for hypoxia Additional History obtained from: none Chronic Medical/Social Conditions affecting care: Hypertension Prior/ Outside/ External records reviewed: none Differential Diagnosis: Viral syndrome, reactive airway disease, pneumonia, pneumothorax, COPD, CHF, infections, cardiac ischemia, pulmonary embolism, musculoskeletal, gastrointestinal, as well as other pathologies. Diagnostics, independently interpreted by me: ECG: Twelve-lead ECG was sinus tachycardia [address] No ST elevation or depression. Cardiac Monitoring: Cardiac monitoring ordered by me: The patient was placed on continuous cardiac monitoring and observed. It revealed a normal sinus rhythm at 97 beats per minute without ectopy or evidence of dysrhythmia. Medical decision rules: none Imaging studies: Chest x-ray is negative for focal infiltrate. CT PE study is negative for pulmonary embolus however there is multifocal groundglass opacities present. HPI: 59 year old Female arrives for evaluation of shortness of breath. This started over the last 2 days and is worsening. The patient also notes the following associated symptoms, cough, fever, congestion, headache, lightheadedness, nausea, mild sore throat. The patient has found no relieving factors. Current pain is rated as 0/10. Patient denies any known sick contacts. Pt denies LOC, current headache,visual changes, neck pain, chest pain, breathing difficulties, vomiting, abdominal pain, back pain, melena, hematochezia, urinary symptoms, numbness, weakness, lymphadenopathy, rash, or other complaints.. PAST MEDICAL HISTORY: See Below, hypertension PAST SURGICAL HISTORY: See Below, spinal surgery SOCIAL HISTORY: See Below, smokes HOME MEDICATIONS: See Below ALLERGIES: See Below VITALS: See Below PHYSICAL EXAMINATION: GENERAL: Awake, alert, mildly dyspneic-appearing, in no distress HENT: Normocephalic, atraumatic. Oropharynx unremarkable. EYES: Normal conjunctiva. Sclera non-icteric. NECK: Inspection normal. Non-tender. Supple. No nuchal rigidity. FROM. No masses. RESPIRATORY: Clear to auscultation. No wheezes. No rales. Normal respiratory effort. CARDIAC: Tachycardic rate. Normal rhythm. No murmurs. No rubs. Extremities warm and well perfused. Pulses equal. No JVD. GI: Soft, non-distended. No tenderness to palpation. No rebound or guarding. No masses. RECTAL: Deferred. MUSCULOSKELETAL: Atraumatic. Chest examination reveals no tenderness. The back is symmetrical on inspection without obvious abnormality. There is no CVA tenderness to palpation. No joint edema. LOWER EXTREMITIES: Calves are equal size bilaterally and non-tender. No edema. No discoloration. NEURO: Normal sensorium. No sensory or motor deficits noted. SKIN: No rash or jaundice noted. PROCEDURES: none CRITICAL CARE: none OBSERVATION NOTE: none Past Med/Surg History Problem List (Updated 06/22/24 @ 00:39 by Bob Mccarthy MD) Community acquired pneumonia (Acute) Flu-like symptoms (Acute) Hypoxia (Acute) Shortness of breath (Acute) Medical History Cervical stenosis of spinal canal Lumbar stenosis with neurogenic claudication (05/26/14) Surgical History History of lumbar surgery Hx of cervical spine surgery Social History Smoking Status: Current every day smoker Tobacco Type: Cigarettes Preferred Language: Pashto Feels Safe at Home: Yes Allergies Allergies Allergy/AdvReac Type Severity Reaction Status Date / Time aspirin Allergy Intermediate RASH, SICK Verified 02/06/23 00:00 TO STOMACH celecoxib Allergy Intermediate rash Verified 02/06/23 00:00 levofloxacin Allergy Intermediate NAUSEA AND Verified 02/06/23 00:00 VOMITING, RASH naproxen Allergy Intermediate RASH, GI Verified 02/06/23 00:00 upset Home Meds Home Medications Medication Instructions Recorded Confirmed atorvastatin 20 mg tablet 20 mg PO QPM 02/06/23 06/21/24 duloxetine 60 mg capsule,delayed 60 mg PO DAILY 02/06/23 06/21/24 release gabapentin 600 mg tablet 600 mg PO TID 02/06/23 06/21/24 lisinopril 20 1 tab PO QAM 02/06/23 06/21/24 mg-hydrochlorothiazide 12.5 mg tablet omeprazole 40 mg capsule,delayed 40 mg PO QAM 02/06/23 06/21/24 release spironolactone 50 mg tablet 50 mg PO QAM 02/06/23 06/21/24 hydrocodone 5 mg-acetaminophen 325 1 tab PO UD PRN Pain 06/21/24 06/21/24 mg tablet Results & Data (ED) Vital Signs Vital Signs - 24 hr 06/21/24 18:28 06/21/24 18:52 06/21/24 18:52 Temperature 37 C 37.6 C H Temperature Source Oral Oral Pulse Rate 111 H Pulse Rate [Apical] 104 H Respiratory Rate 20 21 Respiratory Effort / Characteristics Non-Labored Spontaneous Respiratory Depth Normal Respiratory Pattern Regular Blood Pressure 131/74 Blood Pressure [Right Arm] 131/79 Blood Pressure Mean 93 Blood Pressure Mean [Right Arm] 96 Blood Pressure Position [Right Arm] Semi-fowlers Pulse Oximetry 87 L 89 L 90 Oxygen Delivery Method Room Air Room Air Room Air Oxygen Flow Rate Sepsis Recent Fever Within 48 Hours Yes Sepsis New/Unexplained Change in Mental Status No Sepsis Action Taken by Nursing No Action Required Oxygen Flow Rate - Titration 2 Pulse Oximetry Post Tiitration 94 06/21/24 18:52 06/21/24 19:00 06/21/24 19:00 Temperature Temperature Source Pulse Rate 102 H 98 H Pulse Rate [Apical] Respiratory Rate 24 Respiratory Effort / Characteristics Respiratory Depth Respiratory Pattern Blood Pressure Blood Pressure [Right Arm] 124/78 Blood Pressure Mean Blood Pressure Mean [Right Arm] 93 Blood Pressure Position [Right Arm] Pulse Oximetry 91 Oxygen Delivery Method Room Air Oxygen Flow Rate Sepsis Recent Fever Within 48 Hours Sepsis New/Unexplained Change in Mental Status Sepsis Action Taken by Nursing Oxygen Flow Rate - Titration Pulse Oximetry Post Tiitration 06/21/24 19:33 06/21/24 21:10 06/21/24 21:10 Temperature 37.1 C 37.1 C Temperature Source Oral Oral Pulse Rate Pulse Rate [Apical] 96 H 96 H Respiratory Rate 26 H 25 H Respiratory Effort / Characteristics Non-Labored Spontaneous Non-Labored Spontaneous Respiratory Depth Normal Respiratory Pattern Regular Regular Blood Pressure Blood Pressure [Right Arm] 115/73 Blood Pressure Mean Blood Pressure Mean [Right Arm] 87 Blood Pressure Position [Right Arm] Pulse Oximetry 94 94 Oxygen Delivery Method Nasal Cannula Nasal Cannula Oxygen Flow Rate 2 2 Sepsis Recent Fever Within 48 Hours Sepsis New/Unexplained Change in Mental Status Sepsis Action Taken by Nursing Oxygen Flow Rate - Titration Pulse Oximetry Post Tiitration 06/21/24 22:00 06/21/24 22:52 06/21/24 22:59 Temperature 37.2 C Temperature Source Oral Pulse Rate 91 H Pulse Rate [Apical] 92 H 94 H Respiratory Rate 24 24 Respiratory Effort / Characteristics Non-Labored Spontaneous Non-Labored Spontaneous Respiratory Depth Normal Normal Respiratory Pattern Regular Blood Pressure Blood Pressure [Right Arm] 114/63 Blood Pressure Mean Blood Pressure Mean [Right Arm] 80 Blood Pressure Position [Right Arm] Semi-fowlers Pulse Oximetry 93 96 Oxygen Delivery Method Nasal Cannula Nasal Cannula Oxygen Flow Rate 2 2 Sepsis Recent Fever Within 48 Hours Sepsis New/Unexplained Change in Mental Status Sepsis Action Taken by Nursing Oxygen Flow Rate - Titration Pulse Oximetry Post Tiitration Laboratory Data 06/21/24 18:50 06/21/24 18:50 Lab Results 06/21/24 06/21/24 Range/Units 18:41 18:50 WBC 11.32 H (4.8-10.8) K/ul RBC 3.09 L (4.20-5.40) M/uL Hgb 9.4 L (12.0-16.0) g/dl Hct 28.0 L (37.0-47.0) % MCV 90.6 (80.0-100.0) fL MCH 30.4 (25.0-34.0) pg MCHC 33.6 (32.0-36.0) g/dL RDW Std Deviation 46.0 (36.4-46.3) fL RDW Coeff of Wesly 13.9 (11.5-14.5) % Plt Count 280 (130-400) K/uL MPV 10.1 (9.4-12.4) fL Immature Gran % (Auto) 0.4 % Neut % (Auto) 83.9 % Lymph % (Auto) 7.2 % Kendall % (Auto) 8.3 % Eos % (Auto) 0.0 % Baso % (Auto) 0.2 % Neut # (Auto) 9.50 H (1.40-6.50) K/uL Lymph # (Auto) 0.81 L (1.20-3.40) K/uL Kendall # (Auto) 0.94 H (0.11-0.59) K/uL Eos # (Auto) 0.00 (0.00-0.50) K/uL Baso # (Auto) 0.02 (0.00-0.20) K/uL Immature Gran # (Auto) 0.05 (0.01-0.20) K/uL Sodium 135 L (136-145) mmol/L Potassium 3.9 (3.5-5.1) mmol/L Chloride 102 (98-107) mmol/L Carbon Dioxide 22 (21-32) mmol/L Anion Gap 11 (3-11) BUN 24 H (6-23) mg/dl Creatinine 1.44 H (0.6-1.2) mg/dl Est Cr Clr Drug Dosing 45.9 ml/min eGFR 42.42 BUN/Creatinine Ratio 16.7 (10-20) Glucose 142 H (70-99(Fasting)) mg/dl Calcium 9.2 (8.6-10.3) mg/dl Magnesium 1.4 L (1.7-2.4) mg/dl Total Bilirubin 0.3 (0.2-1.0) mg/dl AST 14 (13-39) U/L ALT 6 L (7-52) U/L Alkaline Phosphatase 101 (34-104) U/L Troponin I High Sens 17.1 H (0-14) pg/ml B-Natriuretic Peptide 481 H (0-100) pg/ml Total Protein 7.6 (6.0-8.3) gm/dl Albumin 4.1 (3.4-5.0) gm/dl Globulin 3.5 (2.5-4.0) gm/dl Albumin/Globulin Ratio 1.2 (0.9-2) Adenovirus (PCR) Not Detected (NotDetected) B. pertussis DNA (PCR) Not Detected (NotDetected) B.parapertussis DNA PCR Not Detected (NotDetected) C. pneumoniae DNA (PCR) Not Detected (NotDetected) Coronavirus OC43 (PCR) Not Detected (NotDetected) Coronavirus HKU1 (PCR) Not Detected (NotDetected) Coronavirus 229E (PCR) Not Detected (NotDetected) SARS-CoV-2 (PCR) Not Detected (NotDetected) Coronavirus NL63 (PCR) Not Detected (NotDetected) Human Metapneumovir PCR Not Detected (NotDetected) Influenza Type A (PCR) Not Detected (NotDetected) Influenza Type B (PCR) Not Detected (NotDetected) M. pneumoniae (PCR) Not Detected (NotDetected) Parainfluenza 1 (PCR) Not Detected (NotDetected) Parainfluenza 2 (PCR) Not Detected (NotDetected) Parainfluenza 3 (PCR) Not Detected (NotDetected) Parainfluenza 4 (PCR) Not Detected (NotDetected) RSV (PCR) Not Detected (NotDetected) Entero/Rhino (PCR) Not Detected (NotDetected) Administered Medications Discontinued Medications Acetaminophen (Acetaminophen 500 Mg Tab) 1,000 mg PO NOW STA Stop: 06/21/24 19:07 Last Admin: 06/21/24 19:31 Dose: 1,000 mg Documented By: PATI Albuterol (Albut/Ipratrop 3mg/0.5mg Neb 3 Ml Vial) 3 ml NEB NOW STA; Protocol Stop: 06/21/24 18:54 Last Admin: 06/21/24 19:09 Dose: 3 ml Documented By: PATI Ceftriaxone Sodium (Rocephin) 2,000 mg in 50 mls @ 100 mls/hr IV NOW STA Stop: 06/21/24 20:59 Last Infusion: 06/21/24 22:06 Dose: Infused Documented By: Admin: 06/21/24 21:12 Dose: 100 mls/hr Documented By: PATI Doxycycline Hyclate 100 mg/ (Dextrose) 100 mls @ 50 mls/hr IV NOW STA Stop: 06/21/24 22:29 Last Admin: 06/21/24 22:28 Dose: 50 mls/hr Documented By: PATI Ioversol (Optiray 320 125ml) 87 ml IV ONCE ONE Stop: 06/21/24 20:23 Last Admin: 06/21/24 20:23 Dose: 87 ml Documented By: JEFFERY Methylprednisolone (Methylprednisolone 125 Mg/2 Ml Vial) 125 mg IV NOW STA Stop: 06/21/24 18:54 Last Admin: 06/21/24 19:03 Dose: 125 mg Documented By: PATI Imaging Data Radiologist's Impression: Chest X-Ray 06/21/24 18:34 Exam(s): XR CXR 1 VIEW EXAM: XR Chest, 1 View CLINICAL HISTORY: Reason for exam: Dyspnea. TECHNIQUE: Frontal view of the chest. COMPARISON: X-ray chest: 07/23/2016 FINDINGS: Lungs: Hyperinflated lungs. Bilateral prominent interstitial markings/infiltrates. No consolidation. Pleural space: Unremarkable. No pneumothorax. Heart: Mild cardiomegaly. Mediastinum: Aortic atherosclerosis. Bones/joints: Postsurgical cervical and thoracolumbar spine. No acute fracture. IMPRESSION: Bilateral prominent interstitial markings/infiltrates. No consolidation. . Electronically signed by: Ariane Manrique MD, DABR 06/21/24 20:34 PM Chest CTA 06/21/24 19:51 Exam(s): CTA CHEST IV Amt: 87 ml opti 320 EXAM: CT Angiography Chest With Intravenous Contrast CLINICAL HISTORY: Reason for exam: SOB, hypoxia. TECHNIQUE: Axial computed tomographic angiography images of the chest with intravenous contrast. Automated exposure control was utilized for the study. A dose lowering technique was utilized adhering to the principles of ALARA. MIP reconstructed images were created and reviewed. COMPARISON: X-ray chest: 06/21/2024 FINDINGS: Image quality is degraded by motion and metallic beam hardening artifacts. Pulmonary arteries: No pulmonary embolism. Enlarged main pulmonary artery: 36 mm in diameter, suggestive of sequela of pulmonary arterial hypertension. Aorta: No acute findings. Atheromatous calcifications of the aortic arch. No thoracic aortic aneurysm. Lungs: Central airways are patent. Bilateral mild diffuse bronchial wall thickening. Demonstrates bilaterally multifocal ill-defined confluent groundglass opacities predominantly in the central right lung, highly suggestive of a viral infection, probably Covid 19 infection. No mass. No consolidation. Pleural space: No significant effusion. No pneumothorax. Heart: No cardiomegaly. Multivessel coronary arterial calcified atherosclerosis. No significant pericardial effusion. No evidence of RV dysfunction. Bones/joints: No acute fracture. No dislocation. Postsurgical spine with posterior fusion instrumentation. Increased thoracic kyphosis. Soft tissues: Unremarkable. Lymph nodes: Small multiple nonspecific mediastinal and bilateral hilar lymph nodes/lymphadenopathy. Other findings: . Small bilateral axillary lymph nodes. IMPRESSION: No evidence of pulmonary embolism, aortic aneurysm or dissection. Enlarged main pulmonary artery, likely a sequela of secondary pulmonary arterial hypertension. Calcified/noncalcified atherosclerosis of the coronary arteries and aortic arch. Multifocal ill-defined confluent groundglass opacities predominantly in central right lung is suggestive of a viral infection, probably Covid 19 in the appropriate clinical context. Mediastinal/bilateral hilar small lymphadenopathy . Electronically signed by: Ariane Manrique MD, HAWA 06/21/24 20:57 PM Discharge Plan Visit Data Chief Complaint: Shortness of Breath/Dyspnea Stated Complaint: SOB, CONGESTED, HEADACHE ED Provider: Bob Mccarthy Discharge Problem: Hypoxia, Shortness of breath, Flu-like symptoms, Community acquired pneumonia Forms Stand Alone Forms: My [facility] Prescriptions Prescriptions: No Action gabapentin 600 mg tablet 600 mg PO TID lisinopril-hydrochlorothiazide 20-12.5 mg tablet 1 tab PO QAM omeprazole 40 mg capsule,delayed release(DR/EC) 40 mg PO QAM atorvastatin 20 mg tablet 20 mg PO QPM duloxetine 60 mg capsule,delayed release(DR/EC) 60 mg PO DAILY spironolactone 50 mg tablet 50 mg PO QAM hydrocodone-acetaminophen 5-325 mg tablet 1 tab PO UD PRN (Reason: Pain) Referrals Referrals: Kisha Casey MD [Primary Care Provider] -
[2024-06-21] MEDS: methylPREDNISolone 125 MG/2 ML VIAL IV STA (19:03)
[2024-06-21 19:04] LABS: Basophils # (auto) 0.02 K/uL (0.00-0.20); Basophils % (auto) 0.2 %; Hemoglobin 9.4 g/dl (12.0-16.0); Immature Granulocytes # (auto) 0.05 K/uL (0.01-0.20); Immature Granulocytes % (auto) 0.4 %; Lymphocytes # (auto) 0.81 K/uL (1.20-3.40); Lymphocytes % (auto) 7.2 %; Mean Corpuscular Hemoglobin 30.4 pg (25.0-34.0); Mean Corpuscular Hgb Conc 33.6 g/dL (32.0-36.0); Mean Corpuscular Volume 90.6 fL (80.0-100.0); Mean Platelet Volume 10.1 fL (9.4-12.4); Monocytes # (auto) 0.94 K/uL (0.11-0.59); Monocytes % (auto) 8.3 %; Neutrophils % (auto) 83.9 %; Platelet Count 280 K/uL (130-400); RDW Coefficient of Variation 13.9 % (11.5-14.5); Red Blood Count 3.09 M/uL (4.20-5.40); White Blood Count 11.32 K/ul (4.8-10.8)
[2024-06-21] MEDS: ALBUT/IPRATROP 3MG/0.5MG NEB 3 ML VIAL NEB STA (19:09)
[2024-06-21 19:23] LABS: Albumin Globulin Ratio 1.2 (0.9-2); Albumin Level 4.1 gm/dl (3.4-5.0); BUN Creatinine Ratio 16.7 (10-20); Bilirubin,Total 0.3 mg/dl (0.2-1.0); Calcium 9.2 mg/dl (8.6-10.3); Creatinine Clr Calc Pharmacy 45.9 ml/min; Globulin 3.5 gm/dl (2.5-4.0); Magnesium 1.4 mg/dl (1.7-2.4); Potassium 3.9 mmol/L (3.5-5.1); Total Protein 7.6 gm/dl (6.0-8.3)
[2024-06-21 19:28] LABS: Troponin I High Sensitivity 17.1 pg/ml (0-14)
[2024-06-21] MEDS: ACETAMINOPHEN 500 MG TAB PO STA (19:31)
[2024-06-21 19:48] LABS: Adenovirus PCR Not Detected (NotDetected); Bordetella parapertussis PCR Not Detected (NotDetected); Bordetella pertussis PCR Not Detected (NotDetected); Chlamydia pneumoniae PCR Not Detected (NotDetected); Coronavirus 229E PCR Not Detected (NotDetected); Coronavirus CoV-2 (COVID19)PCR Not Detected (NotDetected); Coronavirus HKU1 PCR Not Detected (NotDetected); Coronavirus NL63 PCR Not Detected (NotDetected); Coronavirus OC43PCR Not Detected (NotDetected); Human Metapneumovirus PCR Not Detected (NotDetected); Influenza A PCR Not Detected (NotDetected); Influenza B PCR Not Detected (NotDetected); Mycoplasma pneumoniae PCR Not Detected (NotDetected); Parainfluenza Virus 1 PCR Not Detected (NotDetected); Parainfluenza Virus 2 PCR Not Detected (NotDetected); Parainfluenza Virus 3 PCR Not Detected (NotDetected); Parainfluenza Virus 4 PCR Not Detected (NotDetected); Respiratory Syncytial VirusPCR Not Detected (NotDetected); Rhinovirus/Enterovirus PCR Not Detected (NotDetected)
[2024-06-21] MEDS: OPTIRAY 320 125ml IV ONE (20:23)
--- NOTE | 2024-06-21 20:35 | XRay Report ---
Exam(s): XR CXR 1 VIEW EXAM: XR Chest, 1 View CLINICAL HISTORY: Reason for exam: Dyspnea. TECHNIQUE: Frontal view of the chest. COMPARISON: X-ray chest: 07/23/2016 FINDINGS: Lungs: Hyperinflated lungs. Bilateral prominent interstitial markings/infiltrates. No consolidation. Pleural space: Unremarkable. No pneumothorax. Heart: Mild cardiomegaly. Mediastinum: Aortic atherosclerosis. Bones/joints: Postsurgical cervical and thoracolumbar spine. No acute fracture. IMPRESSION: Bilateral prominent interstitial markings/infiltrates. No consolidation. . Electronically signed by: Ariane Manrique MD, DABR 06/21/24 20:34 PM
--- NOTE | 2024-06-21 20:58 | CT Scan Report ---
Exam(s): CTA CHEST IV Amt: 87 ml opti 320 EXAM: CT Angiography Chest With Intravenous Contrast CLINICAL HISTORY: Reason for exam: SOB, hypoxia. TECHNIQUE: Axial computed tomographic angiography images of the chest with intravenous contrast. Automated exposure control was utilized for the study. A dose lowering technique was utilized adhering to the principles of ALARA. MIP reconstructed images were created and reviewed. COMPARISON: X-ray chest: 06/21/2024 FINDINGS: Image quality is degraded by motion and metallic beam hardening artifacts. Pulmonary arteries: No pulmonary embolism. Enlarged main pulmonary artery: 36 mm in diameter, suggestive of sequela of pulmonary arterial hypertension. Aorta: No acute findings. Atheromatous calcifications of the aortic arch. No thoracic aortic aneurysm. Lungs: Central airways are patent. Bilateral mild diffuse bronchial wall thickening. Demonstrates bilaterally multifocal ill-defined confluent groundglass opacities predominantly in the central right lung, highly suggestive of a viral infection, probably Covid 19 infection. No mass. No consolidation. Pleural space: No significant effusion. No pneumothorax. Heart: No cardiomegaly. Multivessel coronary arterial calcified atherosclerosis. No significant pericardial effusion. No evidence of RV dysfunction. Bones/joints: No acute fracture. No dislocation. Postsurgical spine with posterior fusion instrumentation. Increased thoracic kyphosis. Soft tissues: Unremarkable. Lymph nodes: Small multiple nonspecific mediastinal and bilateral hilar lymph nodes/lymphadenopathy. Other findings: . Small bilateral axillary lymph nodes. IMPRESSION: No evidence of pulmonary embolism, aortic aneurysm or dissection. Enlarged main pulmonary artery, likely a sequela of secondary pulmonary arterial hypertension. Calcified/noncalcified atherosclerosis of the coronary arteries and aortic arch. Multifocal ill-defined confluent groundglass opacities predominantly in central right lung is suggestive of a viral infection, probably Covid 19 in the appropriate clinical context. Mediastinal/bilateral hilar small lymphadenopathy . Electronically signed by: Ariane Manrique MD, MONIQUER 06/21/24 20:57 PM
[2024-06-21] MEDS: cefTRIAXone SODIUM 2,000 MG/50 ML BAG IV STA (21:12)
[2024-06-21] MEDS: DOXYCYCLINE HYCLATE 100 MG in DEXTROSE 5% MINI-B 100 ML IV STA (22:28)
--- NOTE | 2024-06-22 01:03 | History & Physical Report ---
Date of Service June 22, 2024 Assessment & Plan (1) Community acquired pneumonia: Plan: 59-year-old female with past medical history significant for hyperlipidemia, hypokalemia, prediabetes, Raynaud's syndrome, hypertension, GERD, sacroiliitis, osteoarthritis, left mastoid cholesteatoma, general osteoarthritis, hidradenitis, lumbar degenerative disc disease, depression, history of tobacco use, cervical spinal stenosis, presents with shortness ongoing for last 2 days and also cough. Denies any fevers. No headache. No runny nose or sore throat. No chest pain. No nausea and abdominal pain. Normal bowel and bladder movements. In the ER she was 87% on room air. On 2 L saturating okay. Patient smokes half pack a day. Community-acquired pneumonia Presents with shortness of breath for 2 days and also cough CT scan showing multifocal ill-defined confluent groundglass opacities predominantly in the right central right lung Respite BioFire negative Possible community-acquired pneumonia Can recheck for COVID Empiric Rocephin and Doxy Close monitor Possible mild COPD exacerbation Ongoing tobacco abuse Nebs [id number] and as needed Antibiotics as above Short course of steroids Prediabetes Follow HbA1c levels History of hypertension Holding lisinopril and hydrochlorothiazide and spironolactone for SLIME IV labetalol if needed. Mild elevation of troponin BNP 481 Will follow serial cardiac enzymes and echo SLIME Creatinine of 1.4 Baseline seems to be 0.9 Will hold the BP meds Getting fluids Follow repeat labs History of hypokalemia We will follow labs Depression On duloxetine. GERD On omeprazole Hyperlipidemia On statin Hypomagnesia Will replace Anemia hb 9.4 will follow stool Hemoccult iron studies, vit b12 and folate levels needs followup DVT prophylaxis Lovenox. Monitor h and h Disposition Med/telemetry Full code. History of Present Illness Chief Complaint: Shortness of breath Primary Care Provider: Kisha Casey MD 59-year-old female with past medical history significant for hyperlipidemia, hypokalemia, prediabetes, Raynaud's syndrome, hypertension, GERD, sacroiliitis, osteoarthritis, left mastoid cholesteatoma, general osteoarthritis, hidradenitis, lumbar degenerative disc disease, depression, history of tobacco use, cervical spinal stenosis, presents with shortness ongoing for last 2 days and also cough. Denies any fevers. No headache. No runny nose or sore throat. No chest pain. No nausea and abdominal pain. Normal bowel and bladder movements. In the ER she was 87% on room air. On 2 L saturating okay. Patient smokes half pack a day. Past medical history. As mentioned above. Past surgical history. Left carpal tunnel surgery. . Colonoscopy. Exploration of abdomen. Knee arthroscopy. Ligation oviducts. Lumbar spine fusion surgery. Radical mastoid surgery for cholesteatoma on left side. Reduction of breast. Sinus surgery. Total abdominal hysterectomy with removal of tubes. Right thumb trigger finger release. Social history. . Smokes half pack of cigarettes daily. No alcohol use . No drug use. Family history. Father had kidney cancer. Mother had breast cancer. Hypertension. Paternal grandmother had breast cancer. Paternal grandmother had diabetes. Paternal grandfather had heart disorder. Allergies Allergy/AdvReac Type Severity Reaction Status Date / Time aspirin Allergy Intermediate RASH, SICK Verified 02/06/23 00:00 TO STOMACH celecoxib Allergy Intermediate rash Verified 02/06/23 00:00 levofloxacin Allergy Intermediate NAUSEA AND Verified 02/06/23 00:00 VOMITING, RASH naproxen Allergy Intermediate RASH, GI Verified 02/06/23 00:00 upset Home Medications Medication Instructions Recorded Confirmed Type atorvastatin 20 mg tablet 20 mg PO QPM 02/06/23 06/21/24 History duloxetine 60 mg capsule,delayed 60 mg PO DAILY 02/06/23 06/21/24 History release gabapentin 600 mg tablet 600 mg PO TID 02/06/23 06/21/24 History lisinopril 20 1 tab PO QAM 02/06/23 06/21/24 History mg-hydrochlorothiazide 12.5 mg tablet omeprazole 40 mg capsule,delayed 40 mg PO QAM 02/06/23 06/21/24 History release spironolactone 50 mg tablet 50 mg PO QAM 02/06/23 06/21/24 History hydrocodone 5 mg-acetaminophen 325 1 tab PO UD PRN Pain 06/21/24 06/21/24 History mg tablet Past Med/Surg History Problem List (Updated 06/22/24 @ 00:39 by Bob Mccarthy MD) Community acquired pneumonia (Acute) Flu-like symptoms (Acute) Hypoxia (Acute) Shortness of breath (Acute) Medical History Cervical stenosis of spinal canal Lumbar stenosis with neurogenic claudication (05/26/14) Surgical History History of lumbar surgery Hx of cervical spine surgery Social History Smoking Status: Current every day smoker Tobacco Type: Cigarettes Hx Alcohol Use: No Hx Substance Use: No Preferred Language: Icelandic Communication Ability: Effective Structural Engineer Required: No Beliefs That Will Affect Care: None Current Living Situation: Spouse Feels Safe at Home: Yes Safety Concerns: Feels Safe At This Time Assistive Devices: Glasses Review of Systems Review of Systems: All systems reviewed & are unremarkable except as noted in HPI & below Physical Exam Physical Exam: General- Not in distress Head- atraumatic Eyes- PERRL. ENT- oropharynx clear Neck- supple, no JVD. Lungs- clear to auscultation mild occasional wheezing, no crackles Heart- regular rhythm; no murmur, no gallop. Abdomen- normal bowel sounds, soft, nontender, no distension Extremities- no pretibial edema, no erythema seen Neuro- alert, oriented PERRL, no facial palsy; no dysarthria; moves extremities Results & Data Results & Data Vital Signs (Past 12 Hours) Vital Signs Temp Pulse Pulse Resp BP BP Pulse Ox 06/21/24 22:59 37.2 C 94 H 24 96 06/21/24 22:52 91 H 06/21/24 22:00 92 H 24 114/63 93 06/21/24 21:10 37.1 C 96 H 25 H 115/73 94 06/21/24 21:10 37.1 C 06/21/24 19:33 96 H 26 H 94 06/21/24 19:00 124/78 06/21/24 19:00 98 H 06/21/24 18:52 102 H 24 91 06/21/24 18:52 37.6 C H 104 H 21 131/79 90 06/21/24 18:52 89 L 06/21/24 18:28 37 C 111 H 20 131/74 87 L O2 Del Method O2 Flow Rate 06/21/24 22:59 Nasal Cannula 2 06/21/24 22:52 06/21/24 22:00 Nasal Cannula 2 06/21/24 21:10 Nasal Cannula 2 06/21/24 21:10 06/21/24 19:33 Nasal Cannula 2 06/21/24 19:00 06/21/24 19:00 06/21/24 18:52 Room Air 06/21/24 18:52 Room Air 06/21/24 18:52 Room Air 06/21/24 18:28 Room Air Diagnostic Findings Laboratory Results WBC 11.32 K/ul (4.8-10.8) H 06/21/24 18:50 RBC 3.09 M/uL (4.20-5.40) L 06/21/24 18:50 Hgb 9.4 g/dl (12.0-16.0) L 06/21/24 18:50 Hct 28.0 % (37.0-47.0) L 06/21/24 18:50 MCV 90.6 fL (80.0-100.0) 06/21/24 18:50 MCH 30.4 pg (25.0-34.0) 06/21/24 18:50 MCHC 33.6 g/dL (32.0-36.0) 06/21/24 18:50 RDW Std Deviation 46.0 fL (36.4-46.3) 06/21/24 18:50 RDW Coeff of [place] 13.9 % (11.5-14.5) 06/21/24 18:50 Plt Count 280 K/uL (130-400) 06/21/24 18:50 MPV 10.1 fL (9.4-12.4) 06/21/24 18:50 Immature Gran % (Auto) 0.4 % 06/21/24 18:50 Neut % (Auto) 83.9 % 06/21/24 18:50 Lymph % (Auto) 7.2 % 06/21/24 18:50 [place] % (Auto) 8.3 % 06/21/24 18:50 Eos % (Auto) 0.0 % 06/21/24 18:50 Baso % (Auto) 0.2 % 06/21/24 18:50 Neut # (Auto) 9.50 K/uL (1.40-6.50) H 06/21/24 18:50 Lymph # (Auto) 0.81 K/uL (1.20-3.40) L 06/21/24 18:50 [place] # (Auto) 0.94 K/uL (0.11-0.59) H 06/21/24 18:50 Eos # (Auto) 0.00 K/uL (0.00-0.50) 06/21/24 18:50 Baso # (Auto) 0.02 K/uL (0.00-0.20) 06/21/24 18:50 Immature Gran # (Auto) 0.05 K/uL (0.01-0.20) 06/21/24 18:50 Sodium 135 mmol/L (136-145) L 06/21/24 18:50 Potassium 3.9 mmol/L (3.5-5.1) 06/21/24 18:50 Chloride 102 mmol/L (98-107) 06/21/24 18:50 Carbon Dioxide 22 mmol/L (21-32) 06/21/24 18:50 Anion Gap 11 (3-11) 06/21/24 18:50 BUN 24 mg/dl (6-23) H 06/21/24 18:50 Creatinine 1.44 mg/dl (0.6-1.2) H 06/21/24 18:50 Est Cr Clr Drug Dosing 45.9 ml/min 06/21/24 18:50 eGFR 42.42 06/21/24 18:50 BUN/Creatinine Ratio 16.7 (10-20) 06/21/24 18:50 Glucose 142 mg/dl (70-99(Fasting)) H 06/21/24 18:50 Calcium 9.2 mg/dl (8.6-10.3) 06/21/24 18:50 Magnesium 1.4 mg/dl (1.7-2.4) L 06/21/24 18:50 Total Bilirubin 0.3 mg/dl (0.2-1.0) 06/21/24 18:50 AST 14 U/L (13-39) 06/21/24 18:50 ALT 6 U/L (7-52) L 06/21/24 18:50 Alkaline Phosphatase 101 U/L (34-104) 06/21/24 18:50 Troponin I High Sens 17.1 pg/ml (0-14) H 06/21/24 18:50 B-Natriuretic Peptide 481 pg/ml (0-100) H 06/21/24 18:50 Total Protein 7.6 gm/dl (6.0-8.3) 06/21/24 18:50 Albumin 4.1 gm/dl (3.4-5.0) 06/21/24 18:50 Globulin 3.5 gm/dl (2.5-4.0) 06/21/24 18:50 Albumin/Globulin Ratio 1.2 (0.9-2) 06/21/24 18:50 Adenovirus (PCR) Not Detected (NotDetected) 06/21/24 18:41 B. pertussis DNA (PCR) Not Detected (NotDetected) 06/21/24 18:41 B.parapertussis DNA PCR Not Detected (NotDetected) 06/21/24 18:41 C. pneumoniae DNA (PCR) Not Detected (NotDetected) 06/21/24 18:41 Coronavirus OC43 (PCR) Not Detected (NotDetected) 06/21/24 18:41 Coronavirus HKU1 (PCR) Not Detected (NotDetected) 06/21/24 18:41 Coronavirus 229E (PCR) Not Detected (NotDetected) 06/21/24 18:41 SARS-CoV-2 (PCR) Not Detected (NotDetected) 06/21/24 18:41 Coronavirus NL63 (PCR) Not Detected (NotDetected) 06/21/24 18:41 Human Metapneumovir PCR Not Detected (NotDetected) 06/21/24 18:41 Influenza Type A (PCR) Not Detected (NotDetected) 06/21/24 18:41 Influenza Type B (PCR) Not Detected (NotDetected) 06/21/24 18:41 M. pneumoniae (PCR) Not Detected (NotDetected) 06/21/24 18:41 Parainfluenza 1 (PCR) Not Detected (NotDetected) 06/21/24 18:41 Parainfluenza 2 (PCR) Not Detected (NotDetected) 06/21/24 18:41 Parainfluenza 3 (PCR) Not Detected (NotDetected) 06/21/24 18:41 Parainfluenza 4 (PCR) Not Detected (NotDetected) 06/21/24 18:41 RSV (PCR) Not Detected (NotDetected) 06/21/24 18:41 Entero/Rhino (PCR) Not Detected (NotDetected) 06/21/24 18:41 Impressions Chest X-Ray 06/21/24 18:34 Exam(s): XR CXR 1 VIEW EXAM: XR Chest, 1 View CLINICAL HISTORY: Reason for exam: Dyspnea. TECHNIQUE: Frontal view of the chest. COMPARISON: X-ray chest: 07/23/2016 FINDINGS: Lungs: Hyperinflated lungs. Bilateral prominent interstitial markings/infiltrates. No consolidation. Pleural space: Unremarkable. No pneumothorax. Heart: Mild cardiomegaly. Mediastinum: Aortic atherosclerosis. Bones/joints: Postsurgical cervical and thoracolumbar spine. No acute fracture. IMPRESSION: Bilateral prominent interstitial markings/infiltrates. No consolidation. . Electronically signed by: Ariane Manrique MD, DABR 06/21/24 20:34 PM Chest CTA 06/21/24 19:51 Exam(s): CTA CHEST IV Amt: 87 ml opti 320 EXAM: CT Angiography Chest With Intravenous Contrast CLINICAL HISTORY: Reason for exam: SOB, hypoxia. TECHNIQUE: Axial computed tomographic angiography images of the chest with intravenous contrast. Automated exposure control was utilized for the study. A dose lowering technique was utilized adhering to the principles of ALARA. MIP reconstructed images were created and reviewed. COMPARISON: X-ray chest: 06/21/2024 FINDINGS: Image quality is degraded by motion and metallic beam hardening artifacts. Pulmonary arteries: No pulmonary embolism. Enlarged main pulmonary artery: 36 mm in diameter, suggestive of sequela of pulmonary arterial hypertension. Aorta: No acute findings. Atheromatous calcifications of the aortic arch. No thoracic aortic aneurysm. Lungs: Central airways are patent. Bilateral mild diffuse bronchial wall thickening. Demonstrates bilaterally multifocal ill-defined confluent groundglass opacities predominantly in the central right lung, highly suggestive of a viral infection, probably Covid 19 infection. No mass. No consolidation. Pleural space: No significant effusion. No pneumothorax. Heart: No cardiomegaly. Multivessel coronary arterial calcified atherosclerosis. No significant pericardial effusion. No evidence of RV dysfunction. Bones/joints: No acute fracture. No dislocation. Postsurgical spine with posterior fusion instrumentation. Increased thoracic kyphosis. Soft tissues: Unremarkable. Lymph nodes: Small multiple nonspecific mediastinal and bilateral hilar lymph nodes/lymphadenopathy. Other findings: . Small bilateral axillary lymph nodes. IMPRESSION: No evidence of pulmonary embolism, aortic aneurysm or dissection. Enlarged main pulmonary artery, likely a sequela of secondary pulmonary arterial hypertension. Calcified/noncalcified atherosclerosis of the coronary arteries and aortic arch. Multifocal ill-defined confluent groundglass opacities predominantly in central right lung is suggestive of a viral infection, probably Covid 19 in the appropriate clinical context. Mediastinal/bilateral hilar small lymphadenopathy . Electronically signed by: Ariane Manrique MD, DABR 06/21/24 20:57 PM ECG Additional Comments: ECG. Sinus tachycardia rate of 105. Nonspecific ST abnormality. No significant changes found. Code Status & VTE Plan VTE Prophylaxis Plan VTE Prophylaxis will be ordered: Yes
[2024-06-22] MEDS ORDERED: ALBUT/IPRATROP 3MG/0.5MG NEB 3 ML VIAL NEB PRN (02:20)
[2024-06-22] MEDS ORDERED: POLYETHYLENE (MIRALAX) 17 GM PACK PO PRN (02:20)
[2024-06-22] MEDS ORDERED: LABETALOL HCL IV 5 MG/ML 20ML IV PRN (02:20)
[2024-06-22] MEDS ORDERED: NITROGLYCERIN SL 0.4 MG/TAB TAB SL PRN (02:20)
[2024-06-22] MEDS: SODIUM CHLORIDE 0.9% 1,000 ML IV SCH (03:57)
[2024-06-22] MEDS: MAGNESIUM SULFATE / D5W 1 GM/100 ML BAG IV SCH (03:58)
[2024-06-22] MEDS: ACETAMINOPHEN 325 MG TAB PO PRN (04:02)
--- OUTSIDE RECORDS SUMMARY | 2024-06-22 06:12 | External Medical Summary | Summary of Care ---
Author Name Unknown Organization [facility] Address [address] [facility] [place] [address] Phone [phone] Care Team Providers Care [employer] Name Role Phone Lewis Pleitez MD Primary Care Prov ider Reason for Visit * Reason Comments eRx-Medication Refill Encounter Details Date Type Department Care Team (Late st Contact Info) Description 03/19/2024 Refill Family Medicine [address] [phone] Lewis Pleitez MD [address] [place] [address] [place] [address] Lumbar degenerative disc disease Allergies Active Allergy Reactions Criticality Noted Date Comments Salicylates 09/01/2006 N/V Levofloxacin 04/11/2010 Skin rash Naproxen 10/01/2005 Nausea and vomiting documented as of this encounter (statuses as of 03/22/2024) Medications Medication Sig Dispensed Refills Start Date End Date Status Acetaminophen 325 MG Oral Tablet (Tylenol) Take 1 Tablet by mouth. As needed Active Mupirocin 2 % External Ointment (Bactroban)Indicat ions:Hydradenitis Apply topically to affected area 2 times a day. 30 g 3 11/05/2022 Active Atorvastatin Calcium 20 MG Oral Tablet (Lipitor) Take 1 Tablet by mouth in the morning. In the morning.. 90 Tablet 1 02/19/2024 Active Cyclobenzaprine HCl 10 MG Oral Tablet (Flexeril)Indicati ons:Lumbar degenerative disc disease Take 1 Tablet by mouth in the morning and 1 Tablet before bedtime. 60 Tablet 3 02/19/2024 Active DULoxetine HCl 60 MG Oral Capsule Delayed Release Particles (Cymbalta)Indicati ons:Moderate episode of recurrent major depressive disorder (HCC) Take 1 Capsule by mouth in the morning. Do not cut, crush or chew. 90 Capsule 1 02/19/2024 Active Gabapentin 600 MG Oral Tablet (Neurontin) Take 1 Tablet by mouth in the morning and 1 Tablet at noon and 1 Tablet before bedtime. 270 Tablet 1 02/19/2024 Active Lisinopril-hydroCH LOROthiazide 20-12.5 MG Oral Tablet Take 1 Tablet by mouth in the morning. 90 Tablet 1 02/19/2024 Active metFORMIN HCl ER 500 MG Oral Tablet Extended Release 24 Hour (Glucophage XR) Take 1 Tablet by mouth in the morning. 90 Tablet 1 02/19/2024 Active Omeprazole 40 MG Oral Capsule Delayed Release (PriLOSEC)Indicati ons:Gastroesophage al reflux disease without esophagitis Take 1 Capsule by mouth in the morning. 90 Capsule 1 02/19/2024 Active Spironolactone 50 MG Oral Tablet (Aldactone)Indicat ions:Hydradenitis Take 1 Tablet by mouth in the morning. In the morning.. 90 Tablet 1 02/19/2024 Active Meloxicam 15 MG Oral Tablet (Mobic)Indications :Lumbar degenerative disc disease TAKE 1 TABLET BY MOUTH IN THE MORNING 30 Tablet 2 03/22/2024 Active Meloxicam 15 MG Oral Tablet (Mobic)Indications :Lumbar degenerative disc disease Take 1 Tablet by mouth in the morning. 30 Tablet 02/19/2024 4 Discontinued documented as of this encounter (statuses as of 03/22/2024) Active Problems Problem Noted Date Diagnosed Date Moderate episode of recurrent major depressive d isorder 09/10/2022 Hydradenitis 09/10/2022 Lumbar degenerative disc disease 09/10/2022 Prediabetes 08/25/2022 Overview: Per Prediabetes protocol Sacroiliitis, not elsewhere classified 2 Overview: Left Hypokalemia 01/15/2022 History of colonic polyps 01/15/2022 Family history of bladder cancer 01/15/2022 Hearing loss, left 01/15/2022 Mastoid cholesteatoma, left 01/15/2022 Generalized osteoarthritis 01/15/2022 Esophageal reflux 12/24/2021 Cervical spinal stenosis 12/24/2021 Skin lesion 12/24/2021 Blood type A+ 07/23/2016 Osteoarthritis of spine with radiculopathy, cerv ical region 03/28/2016 Essential hypertension with goal blood pressure less than 140/90 02/15/2016 Hyperlipidemia LDL goal <130 08/24/2015 Overview: TRIG 195, CHOL 240, HDL 33, NON HDL 207, LDL 168 Raynaud's syndrome 06/22/2015 Sciatica 11/11/2013 History of tobacco use 05/07/2011 ADVANCE DIRECTIVE INFORMATION 08/31/2007 Overview: No, Advance Directive brochure given to patient. BENIGN NEOPLASM LG BOWEL 03/10/2006 Carpal tunnel syndrome Full dentures BMI 35.0-35.9,adult Cholesteatoma of external ear Overview: left ear, Dr Nathan documented as of this encounter (statuses as of 03/22/2024) Resolved Problems Problem Noted Date Diagnosed Date Resolved Date OBESITY, BMI 30-34 (SEE ACTUAL BMI) 09/06/2009 10/21/2013 Overview: Per Obesity Taxonomy Hypertrophy of breast 04/28/20062012 Trigger finger 12/06/2002 04/11/2013 LOSS OF TEETH, ACQUIRED 02/2014 OBESITY, UNSPECIFIED 010 Overview: Per Obesity Taxonomy Tobacco use disorder 011 Carbuncle of trunk 3 HTN, goal below 140/90 03/13 documented as of this encounter (statuses as of 03/22/2024) Immunizations Name Administration Dates Next Due COVID-19, LNP-s, No Preserve , Brennon-sucrose, Ages 12+ (Pfizer) 12/31/2021,09/14/2020 PPD 11/18/2011,11/11/2011 Pneumococcal Conjugate Vacci ne, 20-valent ([id number]) 07/08/2022 Seasonal Influenza Vac., MDV , IM, 0.5 mL (Fluzone) 04/11/2013,08/23/2012,05/07/2011 Seasonal Influenza, PF, 6 M & above, IM , (FluLaval or Fluzone) 07/08/2022 Seasonal Influenza, Quadriva lent Hd (Fluzone Hd) 03/07/2020,04/05/2019,03/19/2018 Seasonal Influenza, Quadriva lent, No Preserve, IM 05/29/2015 TDAP (age 10 and older)(Boostrix) 12/24/2021 TDAP, Age 7 and older, IM (Adacel) 09/30/2007 Zoster Vaccine Recombinant (Shingrix) 07/08/2022 ,12/24/2021 documented as of this encounter Social History Tobacco Use Types Packs/Day Years Used Date Smoking Tobacco: Some Days Cigarettes Started: 12/10/1995; Last attempted to quit: 12/09/2010 Smokeless Tobacco: Never Alcohol Use Standard Drinks/Week Comments No 0 (1 standard drink = 0.6 oz pur e alcohol) Hunger Vital Sign Answer Date Recorded Within the past 12 months, y ou worried that your food would run out before you got the money to buy more. Never true 09/08/19 23 Within the past 12 months, t he food you bought just didn't last and you didn't have money to get more. Never true 09/07/2022 Sex and Gender Information Value Date Recorded Sex Assigned at Female 09/07/2022 9:31 PM EDT Gender Identity Female 09/07/2022 9:31 PM EDT Sexual Orientation Straight 09/07/2022 9: 31 PM EDT Job Start Date Occupation Industry Not on file Not on file Not on file documented as of this encounter Miscellaneous Notes * Telephone Encounter - Lewis Pleitez MD - 03/22/2024 4:39 PM EDT Signed Prescriptions: Disp Refills Meloxicam 15 MG Oral Tablet (Mobic) 30 Tab*2 Sig: TAKE 1 TABLET BY MOUTH IN THE MORNING Authorizing Provider: LEWIS PLEITEZ * Telephone Encounter - Liane Short CPhT - 03/22/2024 3:17 PM EDTPending Prescriptions: Disp Refills Meloxicam 15 MG Oral Tablet (Mobic) 30 Tab*2 Sig: TAKE 1 TABLET BY MOUTH IN THE MORNING * Telephone Encounter - Liane Short CPhT - 03/22/2024 3:16 PM EDT Received message from [facility] regarding patient needing labs. Call Placed, Left message on voicemail advising of required labs Thank you, Liane Short CPhT [employer] [facility] 03/22/2024,3:16 PM * Telephone Encounter - Topher Jensen [facility] - 03/21/2024 3:42 PM EDTPending Prescriptions: Disp Refills Meloxicam 15 MG Oral Tablet (Mobic) 30 Tab*2 Sig: TAKE 1 TABLET BY MOUTH IN THE MORNING * Telephone Encounter - RodriTopher guevaraKaye - 03/21/2024 3:39 PM EDT Unable to authorize medication refills for pended medication(s) at this time. Per refill protocol patient should have Routine Labs on file within past year. Reviewed AMP report, Care Gaps/Health Maintenance, medications list, and for any routine labs typically ordered for this patient. Lab orders placed. Please contact patient to advise of labs ordered for blood draw AND URINE specimen (patient will have to be able to void to provide sample). Recommend patient to fast if able for labs. Patient may still have water and regular medications. Advise to obtain labs before requesting the next refill. Additionally patient has not been seen in office since 10/16/22, has next appointment is not scheduled until 11/16/2024 After contacting patient, please forward request to Lewis Casey MD. Thanks, Topher Jensen [facility], Pharm D. Clinical Pharmacist [facility] [phone] 03/21/2024,3:40 PM documented in this encounter Plan of Treatment Upcoming Encounters Date Type Department Care Team (Late st Contact Info) Description 11/16/2024 1:00 PM EDT Office Visit Family Medicine [address] [place] [phone] Lewis Pleitez MD [address] [place] [address] [place] [id number] Scheduled Procedures Name Priority Associated Diagnoses Date/Ti me COLONOSCOPY FLEXIBLE PROXIMA L DIAGNOSTIC Recall Special screening for malignant neoplasms, colon Health Maintenance Due Date Last Done Comments Albumin/Creatinine Ratio 1985 Hepatitis B Vaccine (1 of 3 - 19+ 3-dose series) 1986 Mammogram 09/02/2008 09/03/2007 Cologuard 02/03/2012 Fecal Occult Blood Test 02/03/2012 Sigmoidoscopy 02/03/2012 Colonoscopy 03/20/2016 03/20/2006, 11/21/2004 Colorectal Cancer Screening 03/20/2016 Depression Monitoring 05/17/2016 05/17/2015 GFR 07/08/2023 07/08/2022, 05/15, 07/23/2016, Additional history exists HbA1c 07/08/2023 07/08/2022 COVID-19 Vaccine (3 - 2023- season) 2024 12/31/2021, 09/14/2020, 09/14/2020 Influenza Vaccine (FLU shot) (#1) 2024 07/08/2022, 03/07/2020, 04/05/2019, Additional history exists Lipid Panel 07/08/2027 07/08/2022, 08/25/2015 DTap/Tdap Vaccines (3 - Td or Tdap) 12/25/2031 12/24/2021, 09/30/2007 Pneumococcal Vaccine: Pediatrics (0 to 5 Years) and At-Risk Patients (6 to 64 Years) Completed 07/08/2022 Zoster Vaccines Completed 07/08/2022, 12/24/2021 HPV (Gardasil) Vaccine Aged Out No lo nger eligible based on patient's age to complete this topic MENINGOCOCCAL (MENACTRA/MENVEO) Aged Out No longer eligible based on patient's age to complete this topic documented as of this encounter Medical Devices Not on filedocumented as of this encounter Visit Diagnoses Diagnosis Lumbar degenerative disc disease Degeneration of lumbar or lumbosacral intervertebral disc documented in this encounter Care Teams [employer] Relationship Specialty Start Date End Date Lewis Pleitez MD [address] [place] [address] [place] [id number] PCP - General Family Medicine 01/15/22 documented as of this encounter
--- OUTSIDE RECORDS SUMMARY | 2024-06-22 06:12 | External Medical Summary | Continuity of Care Document ---
Author Name Unknown Organization [facility] [address] [place] [id number] Care Team Providers Care Salesperson [employer] Name Role Phone Kisha Casey Primary Care Physician [phone] [id number] Date(s): 03/21/24 - 03/21/24 [facility] [address] [place] [id number] Discharge Disposition: Home or Self Care Attending Physician: ALEJANDRO Avalos Kelly A Referring Physician: ALEJANDRO Avalos Kelly A Allergies, Adverse Reactions, Alerts Substance Criticality Severity Reaction Reaction Severity Status naproxen Vomiting Active aspirin Vomiting Active Levaquin Vomiting Nausea Active Medications acetaminophen 500 mg oral tablet Start: 06/01/23 5:53:00 PM EST, 2 tab, PO, q8h Start Date: 06/01/23 Status: Ordered calcium with vitamin D 500 mg Start: 12/29/18 7:45:00 AM EDT, 1 tab, PO, bid Start Date: 12/29/18 Status: Ordered Co-Q10 100 mg oral capsule Start: 05/18/23 9:36:00 AM EST, 1 cap, PO, Daily Start Date: 05/18/23 Status: Ordered cyclobenzaprine 5 mg oral tablet Start: 02/25/24 2:09:00 PM EDT, 2 tab, PO, tid, Disp# 60 tab, Refills: 1, 1-2 tablets as needed for muscle spasms every 8 hours, Pharmacy: [id number] Start Date: 02/25/24 Stop Date: 03/16/24 Status: Ordered DULoxetine 60 mg oral delayed release capsule Start: 03/21/24 12:28:00 PM EDT, 1 cap, PO, Daily Start Date: 03/21/24 Status: Ordered gabapentin 600 mg oral tablet Start: 10/12/20 10:11:00 AM EDT, 1 tab, PO, tid, Disp# 90 cap, Refills: 2, Pharmacy: [id number] Start Date: 10/12/20 Status: Ordered hydroCHLOROthiazide-lisinopril 12.5 mg-20 mg oral tablet Start: 09/21/18 9:23:00 AM EDT, 1 tab, PO, qAM Start Date: 09/21/18 Status: Ordered Lipitor 20 mg oral tablet Start: 05/18/23 9:35:00 AM EST, 1 tab, PO, Daily Start Date: 05/18/23 Status: Ordered omeprazole 20 mg oral delayed release capsule Start: 09/21/18 9:23:00 AM EDT, 1 cap, PO, qAM Start Date: 09/21/18 Status: Ordered spironolactone 50 mg oral tablet Start: 03/21/24 12:27:00 PM EDT, 1 tab, PO, Daily Start Date: 03/21/24 Status: Ordered traMADol 50 mg oral tablet Start: 03/15/24 12:54:00 PM EDT, 1 tab, PO, bid, Disp# 30 tab, PRN: as needed for pain, Pharmacy: [id number] Start Date: 03/15/24 Stop Date: 04/14/24 Status: Ordered Problem List Condition Confirmation Course Effective Dates Status Health St atus Informant Facet arthropathy, cervical Confirmed Active Cervical vertebral fusion Confirmed Active History of fusion of cervical spine Confirmed Active Hypertension Confirmed Active Low back pain Confirmed Active Myofascial pain Confirmed Active Neck pain Confirmed Active Cervical stenosis of spine Confirmed Active Procedures Procedure Date Related Diagnosis Body Site Status Fusion- back with hardware 05/2023 Completed Revision 1 02/10/22 Completed Revision L2 and L3 laminecto my, medial fasciectomy, foraminotomies. 12/27/18 Com pleted Surgery - Removal of hip tyler ts, Iliac Bolts 2 01/13/18 Completed Lumbar spinal fusion 05/22/17 Comp leted Cervical spinal fusion 08/13/16 Co mpleted Lumbar spinal fusion 08/31/15 Comp leted Lumbar spinal fusion 05/26/14 Comp leted Left Tympanomastoidectomy 10/2009 Completed Breast reduction 07/2006 Complete d Colonoscopy 2004 Completed SNEHA - Total abdominal hysterectomy 1991 Completed section 1990 Complete d 1C7-T1 laminectomy, C5-T2 posterior spinal fusion/alllograft 2from lumbar fusion surgery on 05/22/2017 Results Laboratory List Name Date Basic Metabolic Panel (BASIC METAB PANEL ) 03/21/24 Complete Blood Count (CBC) 03/21/24 Hemoglobin A1C (HEMOGLOBIN, A1C) 03/21/24 Vitamin D, 25-Hydroxy Level, Total (25-H YDROXY VITAMIN D) 03/21/24 Most recent to oldest [Reference Range]: 1 eGFR CKD-EPI [>60 mL/min/1.73 m2] 26 mL/ min/1.73 m2 *LOW* (03/21/24 1:11 PM) Estimated Average Glucose 120 mg/dL (03/21/24 1:11 PM) Vitamin D, 25-Hydroxy [30-100 ng/mL] 39 ng/mL 1 (03/21/24 1:11 PM) Estimated CrCl 30.39 mL/min (03/21/24 2:27 PM) MPV [9.0-12.2 fL] 10.3 fL (03/21/24 1:11 PM) RDW [11.5-14.2 %] 14.3 % *HI* (03/21/24 1:11 PM) Anion Gap [5-14 mmol/L] 12 mmol/L (03/21/24 1:11 PM) BUN [6-23 mg/dL] 28 mg/dL *HI* (03/21/24 1:11 PM) Ca [8.4-10.2 mg/dL] 9.6 mg/dL (03/21/24 1:11 PM) Cl- [98-107 mmol/L] 103 mmol/L (03/21/24 1:11 PM) HCO3 [22-29 mmol/L] 22 mmol/L (03/21/24 1:11 PM) Cret [0.60-1.00 mg/dL] 2.15 mg/dL *HI* (03/21/24 1:11 PM) HbA1c [<5.7 %] 5.8 % 2 *HI* (03/21/24 1:11 PM) Glu [74-109 mg/dL] 107 mg/dL 3 (03/21/24 1:11 PM) Hct [35-44 %] 29.6 % *LOW* (03/21/24 1:11 PM) Hgb [11.7-15.0 g/dL] 9.4 g/dL *LOW* (03/21/24 1:11 PM) K [3.5-5.1 mmol/L] 4.8 mmol/L (03/21/24 1:11 PM) MCH [28-33 pg] 30.2 pg (03/21/24 1:11 PM) MCHC [32-36 g/dL] 31.8 g/dL *LOW* (03/21/24 1:11 PM) MCV [81-96 fL] 95.2 fL (03/21/24 1:11 PM) Na [136-145 mmol/L] 137 mmol/L (03/21/24 1:11 PM) Plts [150-350 K/uL] 274 K/uL (03/21/24 1:11 PM) RBC [3.90-5.00 M/uL] 3.11 M/uL *LOW* (03/21/24 1:11 PM) WBC [4.0-10.4 K/uL] 8.99 K/uL (03/21/24 1:11 PM) 1Result Comment: Deficiency: <20 ng/mL Insufficiency: 21-29 ng/mL Sufficiency: 30-100 ng/mL Potenial Toxicity: >150 ng/mL 2Result Comment: ADA Recommended [place] Reference Range: Normal: <5.7% Prediabetes: 5.7-6.4% Diabetes: >6.4% Hb A1c results in patients with severe anemia or recent RBC transfusion are unreliable and do not represent the patient glycemic control. 3Result Comment: ADA recommendation for FASTING Serum/Plasma Glucose: Normal: 70-100 mg/dL Prediabetes: 100-125 mg/dL Diabetes: 126 mg/dL or higher Social History Social History Type Response Smoking Status Former Smoker, quit in last 30 days Sex Female Sex Representation Female (finding) Implantable Device List Procedure Provider Procedure Date Device Type Site Unknown Unknown 06/01/23 Unknown Unknown Device Identifier Serial Number Lot or Batch Number Manufacturing Date Expiration Date Distinct Identification Code MRI Safety Implantable Status Assigning Authority Unknown Unknown hmc Unknown Unknown Unknown Unknown Active Unkn own Unknown Unknown hmc Unknown Unknown Unknown Unknown Active Unkn own Unknown Unknown hmc Unknown Unknown Unknown Unknown Active Unkn own Unknown Unknown hmc Unknown Unknown Unknown Unknown Active Unkn own Unknown Unknown hmc Unknown Unknown Unknown Unknown Active Unkn own Unknown Unknown na Unknown Unknown Unknown Unknown Active Unkn own Unknown Unknown [id number] AAC Unknown 12/13/24 Unknown Unknown Active Unknown Unknown Unknown na Unknown 08/15/25 Unknown Unknown Active Unkno wn Procedure Provider Procedure Date Device Type Site Unknown Unknown 02/10/22 Unknown Unknown Device Identifier Serial Number Lot or Batch Number Manufacturing Date Expiration Date Distinct Identification Code MRI Safety Implantable Status Assigning Authority Unknown Unknown n/a Unknown Unknown Unknown Unknown Active Unkn own Unknown Unknown n/a Unknown Unknown Unknown Unknown Active Unkn own Unknown Unknown n/a Unknown Unknown Unknown Unknown Active Unkn own Unknown Unknown n/a Unknown Unknown Unknown Unknown Active Unkn own Unknown Unknown n/a Unknown Unknown Unknown Unknown Active Unkn own Unknown Unknown n/a Unknown 08/23/24 Unknown Unknown Active Unkn own Procedure Provider Procedure Date Device Type Site Unknown Unknown 03/01/20 Unknown Unknown Device Identifier Serial Number Lot or Batch Number Manufacturing Date Expiration Date Distinct Identification Code MRI Safety Implantable Status Assigning Authority Unknown Unknown na Unknown Unknown Unknown Unknown Active Unkn own Unknown Unknown na Unknown Unknown Unknown Unknown Active Unkn own Unknown Unknown na Unknown Unknown Unknown Unknown Active Unkn own Procedure Provider Procedure Date Device Type Site Unknown Unknown 12/27/18 Unknown Unknown Device Identifier Serial Number Lot or Batch Number Manufacturing Date Expiration Date Distinct Identification Code MRI Safety Implantable Status Assigning Authority Unknown Unknown na Unknown Unknown Unknown Unknown Active Unkn own Unknown Unknown na Unknown Unknown Unknown Unknown Active Unkn own Unknown Unknown na Unknown Unknown Unknown Unknown Active Unkn own Unknown Unknown na Unknown Unknown Unknown Unknown Active Unkn own Unknown Unknown na Unknown Unknown Unknown Unknown Active Unkn own Unknown Unknown na Unknown Unknown Unknown Unknown Active Unkn own Unknown Unknown na Unknown Unknown Unknown Unknown Active Unkn own Unknown Unknown na Unknown Unknown Unknown Unknown Active Unkn own Unknown Unknown na Unknown Unknown Unknown Unknown Active Unkn own Unknown Unknown na Unknown Unknown Unknown Unknown Active Unkn own Unknown Unknown na Unknown Unknown Unknown Unknown Active Unkn own Patient Care team information Care Team Personnel Name: Kaye Maldonado Kayla Position: Pharmacist Member Role: Pharmacy - Lifetime Name: MD Jacinto, Kisha Garcias Position: Referring DIRECT Member Role: Primary Care Provider Address: [address] [place] [id number] Name: Jo-Ann Snow Position: Rev Int - Warehouse Representative Member Role: HIS Lifetime Care Team Related Persons Name: NIC AVALOS Name: NIC AVALOS
--- OUTSIDE RECORDS SUMMARY | 2024-06-22 06:12 | External Medical Summary | Continuity of Care Document ---
Author Name Unknown Organization [facility] [address] [place] [id number] Care Team Providers Care Gaggerman Name Role Phone Kisha Casey Primary Care Physician [phone] [id number] Date(s): 03/02/24 - 03/02/24 [facility] [address] [address] [place] [phone] Discharge Disposition: Home or Self Care Attending Physician: NIKKO Blount Shana L Referring Physician: NIKKO Blount Shana L Allergies, Adverse Reactions, Alerts Substance Criticality Severity [...] for muscle spasms every 8 hours, Pharmacy: [id number] Start Date: 02/25/24 Stop Date: 03/16/24 Status: Ordered gabapentin 600 mg oral tablet Start: 10/12/20 10:11:00 AM EDT, 1 tab, PO, tid, Disp# 90 cap, Refills: 2, Pharmacy: [id number] Start Date: 10/12/20 Status: Ordered [...] PO, qAM Start Date: 09/21/18 Status: Ordered Problem List Condition Confirmation Course Effective Dates Status Health St atus Informant Facet arthropathy, cervical Confirmed Active Cervical vertebral fusion Confirmed Active History of fusion of cervical spine Confirmed Active Hypertension Confirmed Active Low back pain Confirmed Active Myofascial pain Confirmed Active Neck pain Confirmed Active Cervical stenosis of spine Confirmed Active Procedures Procedure Date Related Diagnosis Body Site Status Revision 1 02/10/22 Completed Revision L2 and [...] 2from lumbar fusion surgery on 05/22/2017 Results Radiology Reports * Exam Date Time Procedure Performing Provider Status 03/02/24 3:[address] Spine Thoracic w/o Contrast Ile, Te ss; Final Notes: (CT Spine Thoracic w/o Contrast) Reason For Exam: thoracolumbar fusion sulema failure CT Spine Thoracic w/o Contrast EXAMINATION: CT Spine Lumbar w/o Contrast, CT Spine Thoracic w/o Contrast CLINICAL HISTORY: T84.216A: Breakdown (mechanical) of internal fixation device; thoracolumbar fusion rode failure COMPARISON: Radiographs 02/25/2024 TECHNIQUE: CT of the thoracic and lumbar spine was performed without intravenous contrast, coronal and sagittal reconstructions. FINDINGS: THORACIC SPINE: Alignment: Maintained. Vertebrae: No acute fracture. Partially imaged postoperative changes of anterior cervical discectomy and fusion in the lower cervical spine. Posterior fixation of the lower cervical spine extending to L2. Postsurgical changes of thoracolumbar fusion extending from T10 through T12. Bilateral lucencies surrounding the T10 pedicle screws. Pre-vertebral space: Unremarkable. Focused axial interbody analysis: Severe multilevel degenerative disc changes. LUMBAR SPINE: Alignment: 5 mm anterior subluxation is again seen at L2-L3. Vertebrae: No acute fracture. Postsurgical changes of posterior fusion of the lumbosacral spine extending to S1. Removed pedicle screws are seen bilaterally at L2. Interbody spacer at L2-L3, L4-L5, and L5-S1. Bilateral vertical rods appear intact. Suspected fracture of the sulema at the L2-L3 level isnot identified. Pre-vertebral space: Unremarkable. Focused axial interbody analysis: Severe degenerative changes. IMPRESSION: Postsurgical changes of thoracolumbar and sacral fusion as detailed above. Suspected fracture of the vertical sulema at the L2-L3 disc level on the radiographs is not identified and likely artifactual. Bilateral lucency surrounding the T10 pedicle screws concerning for loosening. [place] Act 112: This study does not meet the requirements of [place] Act 112. Workstation ID: [id number] Final Dictated by:MD Lucio Todd R Dictated DT/TM:03/02/2024 3:25 Signed by:MD Lucio Todd R Signed (Electronic Signature):03/02/2024 3:24 p * Exam Date Time Procedure Performing Provider Status 03/02/24 3:[address] Spine Lumbar w/o Contrast Ile, Greta ; Final Notes: (CT Spine Lumbar w/o Contrast) Reason For Exam: thoracolumbar fusion rode failure CT Spine Lumbar w/o Contrast EXAMINATION: CT Spine Lumbar w/o Contrast, CT Spine Thoracic w/o Contrast CLINICAL HISTORY: T84.216A: Breakdown (mechanical) of internal fixation device; thoracolumbar fusion rode failure COMPARISON: Radiographs 02/25/2024 TECHNIQUE: CT of the thoracic and lumbar spine was performed without intravenous contrast, coronal and sagittal reconstructions. FINDINGS: THORACIC SPINE: Alignment: Maintained. Vertebrae: No acute fracture. Partially imaged postoperative changes of anterior cervical discectomy and fusion in the lower cervical spine. Posterior fixation of the lower cervical spine extending to L2. Postsurgical changes of thoracolumbar fusion extending from T10 through T12. Bilateral lucencies surrounding the T10 pedicle screws. Pre-vertebral space: Unremarkable. Focused axial interbody analysis: Severe multilevel degenerative disc changes. LUMBAR SPINE: Alignment: 5 mm anterior subluxation is again seen at L2-L3. Vertebrae: No acute fracture. Postsurgical changes of posterior fusion of the lumbosacral spine extending to S1. Removed pedicle screws are seen bilaterally at L2. Interbody spacer at L2-L3, L4-L5, and L5-S1. Bilateral vertical rods appear intact. Suspected fracture of the sulema at the L2-L3 level isnot identified. Pre-vertebral space: Unremarkable. Focused axial interbody analysis: Severe degenerative changes. IMPRESSION: Postsurgical changes of thoracolumbar and sacral fusion as detailed above. Suspected fracture of the vertical sulema at the L2-L3 disc level on the radiographs is not identified and likely artifactual. Bilateral lucency surrounding the T10 pedicle screws concerning for loosening. [place] Act 112: This study does not meet the requirements of [place] Act 112. 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
--- OUTSIDE RECORDS SUMMARY | 2024-06-22 06:12 | External Medical Summary | Continuity of Care Document ---
Author Name Unknown Organization [facility] [address] Address [address] [facility] [address] [place] [phone] Care Team Providers Care Movie Theater Usher Name Role Phone Kisha Casey Primary Care Physician [phone] [id number]): [facility]25[facility] - [facility] [address] [facility] 30 [facility], [facility] [address] [place] [address] [phone] Encounter Diagnosis Thoracic spine pain(Discharge Diagnosis) - 02/25/24 Lumbar pain(Discharge Diagnosis) - 02/25/24 Hardware failure of spine(Discharge Diagnosis) - 02/25/24 Discharge Disposition: Home or Self Care Attending Physician: NIKKO Harden Sarah E Referring Physician: DO Gordon Donald E Allergies, Adverse Reactions, Alerts Substance Criticality Severity Reaction Reaction Severity Status naproxen Vomiting Active aspirin Vomiting Active Levaquin Vomiting Nausea Active Assessment and Plan Extracted from: Title:Orthopaedics Office Visit Note Author:Ramila esparza PA-C, Shana L Date:02/25/24 Tracypresents to the acute injury clinic for evaluation of back pain, concern for hardware failure. There is in fact a failure in the sulema just below the connector.Tracyverbalizes understanding agrees with the following plan: Pain management:Prescription provided for tramadol 50 mg, 1 to 2 tablets p.o. 3 times daily as needed. May continue acetaminophen 500 mg, 1 to 2 tablets p.o. 3 times daily as needed. Prescription provided for cyclobenzaprine 5 mg, 1 to 2 tablets p.o. 3 times daily as needed. Message was sent to Dr. Regalado and Alexander Ahn regards to if there is any further imagingrequired prior to follow-upnextWednesday, 03/02/2024. Follow up:As scheduled with ALEJANDRO Ahn 03/02/2024for further treatment plan All questions were answered during the visit today,Tracymay reach out if there are any further questions or concerns Medications acetaminophen 500 mg oral tablet Start: [...] for muscle spasms every 8 hours, Pharmacy: [id number] Start Date: 02/25/24 Stop Date: 03/16/24 Status: Ordered gabapentin 600 mg oral tablet Start: 10/12/20 10:11:00 AM EDT, 1 tab, PO, tid, Disp# 90 cap, Refills: 2, Pharmacy: [id number] Start Date: 10/12/20 Status: [...] PO, qAM Start Date: 09/21/18 Status: Ordered traMADol 50 mg oral tablet Start: 02/25/24 2:09:00 PM EDT, 2 tab, PO, q8h, Disp# 42 tab, X 7 day, 1 to 2 tablets as needed for pain every 8 hours, Stop: 03/03/24 2:09:00 PM EDT, Pharmacy: [id number] Start Date: 02/25/24 Stop Date: 03/03/24 Status: Ordered Mental Status 02/25/24 Barriers to Learning one year None evide nt Mandatory Health Literacy Documentation Yes Health Literacy Communication Barriers N ever Primary Language Wolof Problem List Condition Confirmation Course Effective Dates Status Health St atus Informant Facet arthropathy, cervical Confirmed Active Cervical vertebral fusion Confirmed Active History of fusion of cervical spine Confirmed Active Hypertension Confirmed Active Low back pain Confirmed Active Myofascial pain Confirmed Active Neck pain Confirmed Active Cervical stenosis of spine Confirmed Active Diagnosis Diagnosis Type Effective Dates Health Status Cl inical Service Informant Thoracic spine pain Discharge Diagnosis 02/25/24 Lumbar pain Discharge Diagnosis 02/25/24 Hardware failure of spine Discharge Diagnosis 02/25/24 Non-Specified Procedures Procedure Date Related Diagnosis Body Site [...] Exam Date Time Procedure Performing Provider Status 02/25/24 1:52 PM XR Spine Thoracolumbar 2 Views Oxana Laboy; Final Notes: (XR Spine Thoracolumbar 2 Views) Reason For Exam: concern for hardware fx XR Spine Thoracolumbar 2 Views EXAMINATION: XR Spine Thoracolumbar 2 Views CLINICAL HISTORY: M54.6: Pain in thoracic spine; M54.50: Low back pain, unspecified; M54.6: Pain in thoracic spine; M54.50: Low back pain, unspecified; upright concern for hardware fx COMPARISON: Prior radiographs of the thoracolumbar spine 02/25/2024 FINDINGS: Flexion and extension views of the thoracolumbar spine. Posterior fusion hardware spanning from T10S1. Metallic cage spacer at L2-L3. There is interbody fusion at L4-L5 and L5-S1. There is a fracture of the sulema at L2. There is a 7 mm anterolisthesis of L2 on 3 that is stable between flexion and extension views. Vertebral body heights are maintained. Normal soft tissues. IMPRESSION: There is a fracture of the posterior fusion hardware sulema at L2. Dr. Magdalena Adams is the dictating resident. Finalized reports status indicates that the attending has reviewed the images and report, and agrees with the interpretation. Preliminary report status should be regarded as NOT interpreted by the attending radiologist. Workstation ID: [id number] Final Dictated by:DO Adams Nrutya Dictated DT/TM:02/25/2024 2:47 Resident:DO Adams Nrutya Signed by:MD Davis Timothy J Signed (Electronic Signature):02/25/2024 2:45 p * Exam Date Time Procedure Performing Provider Status 02/25/24 1:10 PM XR Spine Thoracolumbar 2 Views Oxana Laboy; Final Notes: (XR Spine Thoracolumbar 2 Views) Reason For Exam: thoracolumbar pain, metal grinding sensation XR Spine Thoracolumbar 2 Views EXAMINATION: XR Spine Thoracolumbar 2 Views CLINICAL HISTORY: M54.6: Pain in thoracic spine; M54.50: Low back pain, unspecified; M54.6: Pain in thoracic spine; M54.50: Low back pain, unspecified; r/o hardware complication thoracolumbar pain, metal grinding sensation COMPARISON: August 28, 2023 FINDINGS: There are operative changes related to prior posterior spinal fusion extending from T10 to S1. Metallic cage spacer is present at L2-3, and there is interbody fusion of L4-5, and L5-S1. There is no evidence of hardware complication or radiographic change from the prior study of August 28, 2023. There is 6 mm anterolisthesis of L2 on L3, similar to the prior exam. There is no compression fracture or focal bone abnormality. Paravertebral soft tissue contours are normal. IMPRESSION: T10 S1 posterior spinal fusion without evidence of hardware complication or interval radiographic change from August 28, 2023 Workstation ID: [id number] Final Dictated by:MD Davis Timothy J Dictated DT/TM:02/25/2024 1:18 Signed by:MD Davis Timothy J Signed (Electronic Signature):02/25/2024 1:17 p Social History Social History Type Response [...] Unknown Unknown Active Unkn own Unknown Unknown [id number] AAC Unknown 12/13/24 Unknown Unknown Active Unknown [...] Unknown Unknown Unknown Unknown Active Unkn own Ortho Outpt Note * NIKKO Blount Shana L: PERFORM, MODIFY Event Display: Ortho Outpt Note Authored Date: [id number] Primary Care Provider MD Jacinto, Kisha Garcias Referring Provider DO Gordon Donald E Reason for Consultation concern for hardware failure Chief Complaint aic History of Present Illness Thursday evening (02/22/24)Bianca was laying in bed reached over front of her body to right side to grab pillow and place overhead. As Bianca did this, she felt pop, pop, pop of the hardware on the rightside. Bianca states that her fusion was 06/01/2023 and is scheduled to come in for her 8 month checkup. Bianca states that since the fusion, she feels as though there is a grinding sensation of metal on metal on both sides; Bianca feels and hears the shifting. Nature of Pain: deep throbbing pain, feels poking and burning sensations with left lower extremity radiculopathy. Pain level: 7/10 seated at rest Worsening factors: laying on right/left side, any type of movement. Alleviating Factors: none Associated Sx: +numb/ting left lower extremity, weakness; denies _ Meds: apap1g tid, ibuprofen 400mg tid - does have gi upset with ibuprofen Has Tried: heat is not helpful, has not tried ice. 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 No other changes to ROS, past medical/surgical/family/social histories,except per above. Physical Exam Biancais a well nourished, well [id number] yearoldFemale. No grossly obvious anatomic abnormalities; AAx3; speech and mentation appear normal; patient answers questions appropriately; mood and affect are appropriate. Thoracic and lumbar exam: No gross obvious osseous deformities. Mild swelling lower thoracic, upper lumbar region. Noedema. No otherlesions, erythema, ecchymosis, warmth, or signs of infection. Well healed midlinethoracolumbar surgical scar. Tone and bulk are good and symmetric. Muscle bulk/atrophy TTP: Bilateral paravertebral musculature Diagnostic Results These films have been independently reviewed and I agree with the below interpretation. Reason For Exam:thoracolumbar pain, metal grinding sensation XR Spine Thoracolumbar 2 Views CLINICAL HISTORY: M54.6: Pain in thoracic spine; M54.50: Low back pain, unspecified; M54.6: Pain inthoracic spine; M54.50: Low back pain, unspecified; r/o hardware complication thoracolumbar pain, metal grinding sensation COMPARISON: August 28, 2023 FINDINGS: There are operative changes related to prior posterior spinal fusion extending from T10 to S1. Metallic cage spacer is present at L2-3, and there is interbody fusion of L4-5, and L5-S1. There is no evidence of hardware complication or radiographic change from the prior study of August 28, 2023. There is 6 mm anterolisthesis of L2 on L3, similar to the prior exam. There is no compression fracture or focal bone abnormality. Paravertebral soft tissue contours are normal. IMPRESSION: T10 S1 posterior spinal fusion without evidence of hardware complication or interval radiographic change from August 28, 2023 [1] Reason For Examconcern for hardware fx XR Spine Thoracolumbar 2 Views CLINICAL HISTORY: M54.6: Pain in thoracic spine; M54.50: Low back pain, unspecified; M54.6: Pain inthoracic spine; M54.50: Low back pain, unspecified; upright concern for hardware fx COMPARISON: Prior radiographs of the thoracolumbar spine 02/25/2024 FINDINGS: Flexion and extension views of the thoracolumbar spine. Posterior fusion hardware spanning from T10 S1. Metallic cage spacer at L2-L3. There is interbody fusion at L4-L5 and L5-S1. There marianela fracture of the sulema at L2. There is a 7 mm anterolisthesis of L2 on 3 that is stable between flexion and extension views. Vertebral body heights are maintained. Normal soft tissues. IMPRESSION: There is a fracture of the posterior fusion hardware sulema at L2. [2 Assessment/Plan Tracypresents to the acute injury clinic for evaluation of back pain, concern for hardware failure. There is in fact a failure in the sulema just below the connector.Tradailyverbalizes understanding agrees with the following plan: Pain management:Prescription provided for tramadol 50 mg, 1 to 2 tablets p.o. 3 times daily as needed. May continue acetaminophen 500 mg, 1 to 2 tablets p.o. 3 times daily as needed. Prescription provided for cyclobenzaprine 5 mg, 1 to 2 tablets p.o. 3 times daily as needed. Message was sent to Dr. Regalado and ALEJANDRO Ahnin regards to if there is any further imagingrequired prior to follow-upnextWednes, 03/02/2024. Follow up:As scheduled with ALEJANDRO Ahn 03/02/2024for further treatment plan All questions were answered during the visit today,Zaida reach out if there are any further questions or concerns Attestation Documentation completed using SpaceList, speech to text software, inadvertent errors may be present,despite editing. If any questions/concerns, please callthe officeat [phone]. Problem List/Past Medical History Ongoing Cervical stenosis of spine Cervical vertebral fusion Facet arthropathy, cervical History of fusion of cervical spine Hypertension Low back pain Myofascial pain Neck pain Resolved Drainage from wound Encounter for orthopedic follow-up care Procedure/Surgical History Revision| Service Date: 2Revision L2 and L3 laminectomy, medial fasciectomy, foraminotomies.| Service Date: 12/27/2018Surgery - Removal of hip bolts, Iliac Bolts| Service Date: 01/13/2018Lumbar spinal fusion| Service Date: 05/22/2017Cervical spinal fusion| Service Date: 08/13/2016Lumbar spinal fusion| Service Date: 08/31/2015Lumbar spinal fusion| Service Date: 05/26/2014Left Tympanomastoidectomy| Service Date: reast reduction| Service Date: 07/2006Colonoscopy| Service Date: 2004TA - Total abdominal hysterectomy| Service Date: 1991Cesarean section| Service Date: 1990 Medications acetaminophen(acetaminophen 500 mg oral tablet), 1000 mg= 2 tab, PO, q8h atorvastatin(Lipitor 20 mg oral tablet), 20 mg= 1 tab, PO, Daily calcium-vitamin D(calcium with vitamin D 500 mg), 1 tab, PO, bid cyclobenzaprine(cyclobenzaprine 5 mg oral tablet), 10 mg= 2 tab, PO, tid, 1 refills gabapentin(gabapentin 600 mg oral tablet), 600 mg= 1 tab, PO, tid, 2 refills hydroCHLOROthiazide-lisinopril(hydroCHLOROthiazide-lisinopril 12.5 mg-20 mg oral tablet), 1 tab, PO, qAM omeprazole(omeprazole 20 mg oral delayed release capsule), 20 mg= 1 cap, PO, qAM traMADol(traMADol 50 mg oral tablet), 100 mg= 2 tab, PO, q8h ubiquinone(Co-Q10 100 mg oral capsule), 100 mg= 1 cap, PO, Daily Allergies LevaquinVomiting, Nausea aspirinVomiting naproxenVomiting Social History Smoking Status Current every day light smoker Recommendations Health Maintenance Pending(in the next year) OverDue Colorectal Cancer Screening due01/11/15and every 10year Adult Influenza Vaccine due12/13/23and every 1year Due Adult COVID-19 Vaccination due02/25/24Unknown Frequency Adult Social Determinants of Health Screening due02/25/24Unknown Frequency Adult Tdap/Td Vaccine due02/25/24Unknown Frequency Breast Cancer Screening due02/25/24Unknown Frequency Hepatitis C Screening due02/25/24One-time only Lipid Screening due02/25/24Unknown Frequency Shingles Vaccine due02/25/24One-time only Due In Future Body Mass Index not due until05/18/24and every Satisfied(in the past 1 year) Satisfied Body Mass Index on06/01/23.Satisfied by CHARLENE Kearney, Rebecca Arteaga [1]XR Spine Thoracolumbar 2 Views; MD Ryan, Jack Herndon 02/25/2024 13:10 EDT Electronic Signature on File CC: Jason Gordon, [address] [id number] * Electronically Reviewed/Signed by: Paty Blount PA-C Author Signature Dt/Tm:02/25/2024 05:27 PM Division of Orthopaedics Electronically Reviewed/Signed by: Augie Regalado MD Cosigner Signature Dt/Tm: 02/26/2024 08:15 AM Division of Orthopaedics [facility] Patient Care team information Care Team Personnel Name: Kaye Maldonado Kayla Position: Pharmacist Member Role: Pharmacy - Lifetime Name: MD Jacinto, Kisha Garcias Position: Referring DIRECT Member Role: Primary Care Provider Address: [address] [place], [place] [id number] Name: Jo-Ann Snow 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
--- OUTSIDE RECORDS SUMMARY | 2024-06-22 06:12 | External Medical Summary | Continuity of Care Document ---
Author Name Unknown Organization [facility] [address] [place] [id number] Care Team Providers Care Manager Of Marketing Name Role Phone Kisha Casey Primary Care Physician [phone] [id number] Date(s): 03/21/24 - 03/21/24 [facility] [address] [facility] [address], Entr[address], [address] [place] [address] Encounter Diagnosis Body mass index [BMI] 32.0-32.9, adult(Discharge Diagnosis) - 03/21/24 Pre-op exam(Discharge Diagnosis) - 03/21/24 Diabetes(Discharge Diagnosis) - 03/21/24 Discharge Disposition: Home or Self Care Attending Physician: MD Hines Wilson C Referring Physician: MD Regalado Jesse E Allergies, Adverse Reactions, Alerts Substance Criticality [...] for muscle spasms every 8 hours, Pharmacy: [id number] Start Date: 02/25/24 Stop Date: 03/16/24 Status: Ordered DULoxetine 60 mg oral delayed release capsule Start: 03/21/24 12:28:00 PM EDT, 1 cap, PO, Daily Start Date: 03/21/24 Status: Ordered gabapentin 600 mg oral tablet Start: 10/12/20 10:11:00 AM EDT, 1 tab, PO, tid, Disp# 90 cap, Refills: 2, Pharmacy: [id number] Start Date: 10/12/20 Status: [...] tab, PRN: as needed for pain, Pharmacy: [id number] Start Date: 03/15/24 Stop Date: 04/14/24 Status: Ordered Mental Status 03/21/24 Barriers to Learning one year None evide nt Mandatory Health Literacy Documentation Yes Health Literacy Communication Barriers N ever Primary Language Bahamian Problem List Condition Confirmation Course Effective Dates Status Health St atus Informant Facet arthropathy, cervical Confirmed Active Cervical vertebral fusion Confirmed Active History of fusion of cervical spine Confirmed Active Hypertension Confirmed Active Low back pain Confirmed Active Myofascial pain Confirmed Active Neck pain Confirmed Active Cervical stenosis of spine Confirmed Active Diagnosis Diagnosis Type Effective Dates Health Status Cl inical Service Informant Body mass index [BMI] 32.0-32.9, adult Discharge Diagnosis 03/21/24 Non-Specified Diabetes Discharge Diagnosis 03/21/24 Pre-op exam Discharge Diagnosis 03/21/24 Procedures Procedure Date Related Diagnosis Body Site [...] fusion/alllograft 2from lumbar fusion surgery on 05/22/2017 Vital Signs Most recent to oldest [Reference Range]: 1 Height 162 cm (03/21/24 12:13 PM) Patient Weight 85.4 kg (03/21/24 12:13 PM) Body Mass Index 32.54 kg/m2 (03/21/24 12:13 PM) Temperature [36.5-37.9 DegC] 36.6 DegC (03/21/24 12:13 PM) Heart Rate 95 bpm (03/21/24 12:13 PM) Respiratory Rate 18 br/min (03/21/24 12:13 PM) Blood Pressure 103/64mmHg (03/21/24 12:13 PM) Mean Blood Pressure 75 mmHg (03/21/24 12:13 PM) Cuff Pulse Pressure 39 mmHg (03/21/24 12:13 PM) BP Location # 1 Right Arm (03/21/24 12:13 PM) Social History Social History Type Response Smoking [...] Unknown Unknown Active Unkn own Unknown Unknown [id number] AAC Unknown 12/13/24 Unknown Unknown Active Unknown [...] Unknown Unknown Unknown Unknown Active Unkn own Anes H&P * MD Hines Wilson C: MODIFY MD Hines Wilson C: MODIFY, SIGN MD Hines Wilson C: SIGN, VERIFY MD Hines Wilson C: VERIFY, MODIFY, MODIFY, MODIFY, MODIFY, MODIFY, SIGN Event Display: Anes H&P Authored Date: Patient: JOSIAH RILEY Age: 59 years Sex: Female : 1965 Associated Diagnoses: None Author: ALEJANDRO Weaver Lauren R Preoperative Information Anesthesia Preop Info: Procedure: REVISION T9-L3 POSTERIOR SPINAL INSTRUMENTED FUSION, ILIAC CREST AUTOGRAFT, ALLOGRAFT, REMOVAL OF HARDWARE Date: 03/28/24 07:30 Surgeons: MD Sabine, Augie Brunson Diagnosis: THORACOLUMBAR FUSION WITH PSEUDOARTHROSIS, BROKEN HARDWARE . History of Present Illness 59 year old female scheduled for above. She received both covid-19 vaccines. Anesthesia History PONV: Yes, Improved with meds. History of Motion Sickness: Yes. Patient Complications: Difficult IV start. Family History of Anesthesia Problems: Negative. Functional Capacity 1-3 METS = Poor: Walks slowly, Stairs slowly, activity limited by back pain. Symptoms: Denies SOB/CP. Medical History Cardiovascular: Hypertension: HOLLY- I, HCTZ, Well controlled. Endocrine/Metabolic: osteopenia. Diabetes: reports previously dx with diabetes and prescribed metformin, reports she self-discontinued approx 1 year ago, states A1c hasn't been rechecked. Intermittently monitors glucose at home, [id number]. A1c ordered. Pulmonary: Ex-smoker, quit 2 weeks ago, had restarted for past few months at 1/2 ppd, prior to thathad quit in 2012. Denies asthma/COPD. STOP BANG Score: Moderate Risk BASHIR 3-5. Neurologic: Spinal Surgery: s/p ACDF & posterior cervical fusion in past, last fusion 01/2022. s/p multiple thoracic/lumbar fusions approx 5, with most recent T10-L3 posterior segmental instrumentation, T10-L3 posterior arthrodesis, Removal of L2 posterior instrumentation 05/2023 now with hardware failure due to pseudoarthrosis of the thoracolumbar spine. Gastrointestinal: GERD: Omeprazole. Obesity: Class I obesity (BMI 30-34.9), BMI: 33. Health Status Allergies: Allergic Reactions (Selected) Severity Not Documented Aspirin- Vomiting. Levaquin- Nausea and vomiting. Naproxen- Vomiting.. Histories Procedure History: Fusion- back with hardware ([id number]) in the month of 05/2023 at 58 Years. Revision ([id number]) on 02/10/2022 at 57 Years. Comments: 03/04/2022 11:23 [facility] - ENLLY Godfrey, Eunice C7-T1 laminectomy, C5-T2 posterior spinal fusion/alllograft Revision L2 and L3 laminectomy, medial fasciectomy, foraminotomies. ([id number]) on 12/27/2018 at 53 Years. Surgery - Removal of hip bolts, Iliac Bolts ([id number]) on 01/13/2018 at 52 Years. Comments: 09/21/2018 09:26 [facility] - NELLY Cantu, Erin Garcias from lumbar fusion surgery on 05/22/2017 Lumbar spinal fusion ([id number]) on 05/22/2017 at 52 Years. Cervical spinal fusion ([id number]) on 08/13/2016 at 51 Years. Lumbar spinal fusion ([id number]) on 08/31/2015 at 50 Years. Lumbar spinal fusion ([id number]) on 05/26/2014 at 49 Years. Left Tympanomastoidectomy ([id number]) in the month of 10/2009 at 44 Years. Breast reduction ([id number]) in the month of 07/2006 at 41 Years. Colonoscopy ([id number]) in 2004 at 40 Years. SNEHA - Total abdominal hysterectomy ([id number]) in 1991 at 27 Years. section ([id number]) in 1990 at 26 Years.. 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 Former Smoker, quit in last 30 days Other Tobacco Use: Never used other tobacco products Alcohol: Denies Recreational Drugs: Denies . Physical Examination VS/Measurements: 03/21/2024 12:13 Temp: 36.6 Pulse: 95 BP: 103/64 MAP: 75 RR: 18 SPO2: 99 FIO2: Wt(kg): 85.4 BMI: 33 Height(cm): 162 . General: Alert, Oriented, Well developed, Well-nourished. Airway: Mallampati classification: II (soft palate, fauces, uvula visible). Hyomental Distance: 30-40mm. Mouth: Within normal limits. Teeth: Edentulous, Full upper denture, Full lower denture. Head: Normocephalic, Glasses. Neck: Supple, Good flexion, Limited extension. Trachea: Midline. Respiratory: CTA bilaterally, No wheezes. Cardiovascular: Heart: RRR, No murmurs. Edema: Left, Lower extremity, Trace, Non-pitting edema. Gastrointestinal: Soft, Normal bowel sounds, Non-tender. Neurologic: back pain. Assessment and Plan Medications: Pre-Surgery Medication Instructions Please bring a list of your medications with you on the day of procedure and include the date and time you last took each medication. It is very important we have an accurate list of your medicationsprior to your procedure. Please review this medication list with your home medications and call [phone] prior to your procedure with any changes to your prescription medications. DULoxetine (DULoxetine 60 mg oral delayed release capsule) 1 cap by mouth once daily . Take the morning of procedure. acetaminophen (acetaminophen 500 mg oral tablet) 2 tab by mouth every 8 hours . May take the night before and/or morning of procedure if needed atorvastatin (Lipitor 20 mg oral tablet) 1 tab by mouth once daily . Take the morning of procedure. calcium-vitamin D (calcium with vitamin D 500 mg) 1 tab by mouth 2 times daily . Do not take morning of procedure cyclobenzaprine (cyclobenzaprine 5 mg oral tablet) 2 tab by mouth 3 times daily .1-2 tablets as needed for muscle spasms every 8 hours (typically at night) Take night before procedure as usual. Do not take morning of procedure gabapentin (gabapentin 600 mg oral tablet) 1 tab by mouth 3 times daily . Take the morning of procedure. hydrochlorothiazide-lisinopril (hydroCHLOROthiazide-lisinopril 12.5 mg-20 mg oral tablet) 1tab by mouth once a day (in the morning) . Do not take morning of procedure omeprazole (omeprazole 20 mg oral delayed release capsule) 1 cap by mouth once a day (in the morning) . Take the morning of procedure. spironolactone (spironolactone 50 mg oral tablet) 1 tab by mouth once daily . Do not take morning of procedure traMADol (traMADol 50 mg oral tablet) 1 tab by mouth 2 times daily, as needed for pain . May take the night before and/or morning of procedure if needed ubiquinone (Co-Q10 100 mg oral capsule) 1 cap by mouth once daily . Stop today for procedure. . Does patient use aspirin?: No. Does patient use beta blockers?: No. Does patient use HOLLY- I/ARB drugs?: Yes. Does patient use narcotic analgesics for chronic pain? (>1 month AND >30mg morphine or equivalent daily): No. Anesthesiologist Assessment and Plan Problems: No previous anesthetic complications, No a/w concerns. Cardiovascular risk associated with the procedure: Low (<1%). ASA Classification: Class II. Anesthetic Plan: Premedication: Oral, emend. Anesthetic technique discussed: General anesthesia. Induction discussed: Intravenously. Airway plan discussed: Oral endotracheal tube. Risks discussed: Nausea-vomiting, Serious complications. Special techniques and precautions discussed: Nausea-vomiting, Transfusion of blood or blood products, Mechanical ventilation. Review / Management Ordered Today: CBC, BMP, Per surgeon, A1c added. STOP BANG Risk Assessment: Snore: Yes. Tired: Yes. Observed chocking, gasping or stop breathing during sleep: No. Hypertension: Yes. BMI > 35 kg/m2: No. Age greater than 50: No. Neck size > 17 inches(male), > 16 inches(female): No. Gender Male: No. Score: 3 (Enter score in Pulmonary Section), Intermediate Risk 3-5. Orders placed for day of surgery: None. Pending issues: None. Patient Education [facility]: [facility] Electronic Signature on File Electronically Reviewed/Signed by: ALEJANDRO Shi Author Signature Dt/Tm:03/21/2024 12:47 PM Department of Anesthesia Electronically Reviewed/Signed by: Tony Hines MD Cosigner Signature Dt/Tm: 03/21/2024 12:51 PM Department of Anesthesia [facility] Patient Care team information Care Team Personnel Name: Kaye Maldonado Kayla Position: Pharmacist Member Role: Pharmacy - Lifetime Name: MD Jacinto, Kisha Garcias Position: Referring DIRECT Member Role: Primary Care Provider Address: [address] [place] [address] Name: Jo-Ann Snow Position: Rev Int - Pneumatic Tube Fitter Member Role: HIS Lifetime Care Team Related Persons Name: NIC RILEY Name: NIC RILEY
--- OUTSIDE RECORDS SUMMARY | 2024-06-22 06:12 | External Medical Summary | Continuity of Care Document ---
Author Name Unknown Organization [facility] [address] [facility] [address] [address] [place] [id number] Care Team Providers Care Loss Prevention/Safety District Manager Name Role Phone Kisha Casey Primary Care Physician [phone] [id number] Date[facility]s): 03/31/24 - [facility]31/[facility] [place] [address] [facility] [place] [address], [facility] [address], [address] [place] [address] [phone] Encounter Diagnosis S/P spinal fusion(Discharge Diagnosis) - 03/31/24 Discharge Disposition: Home or Self Care Attending Physician: NIKKO Harrison, Lana Hercules Referring Physician: MD Sabine, Augie Brunson Allergies, Adverse Reactions, Alerts Substance Criticality Severity Reaction Reaction Severity Status naproxen Vomiting Active aspirin Vomiting Active Levaquin Vomiting Nausea Active Assessment and Plan Extracted from: Title:Follow Up Visit Author:NIKKO Harrison, Latanya Hercules Date:03/31/24 1.S/P spinal fusion Patient presents today for surgical drain removal. Drain was removed without any complication. Wound care discussed. Her is going to see Dr. Regalado on April 15 and she was due to see ALEJANDRO Ahn, on April 20. They live 2.5 hours away. Therefore, I am going to have her see Dr. Regalado on Apriluring her 's appointment to save them a trip. Medications acetaminophen 500 mg oral tablet Start: 06/01/23 5:53:00 PM EST, 2 tab, PO, q8h Start Date: 06/01/23 Status: Ordered calcium with vitamin D 500 mg Start: 12/29/18 7:45:00 AM EDT, 1 tab, PO, bid Start Date: 12/29/18 Status: Ordered Co-Q10 100 mg oral capsule Start: 05/18/23 9:36:00 AM EST, 1 cap, PO, Daily Start Date: 05/18/23 Status: Ordered DULoxetine 60 mg oral delayed release capsule Start: 03/21/24 12:28:00 PM EDT, 1 cap, PO, Daily Start Date: 03/21/24 Status: Ordered Flexeril 5 mg oral tablet Start: 03/29/24 6:36:00 AM EDT, 1 tab, PO, tid, Disp# 90 tab, PRN: spasms, Pharmacy: [facility] Start Date: 03/29/24 Status: Ordered gabapentin 600 mg oral tablet Start: 10/12/20 10:11:00 AM EDT, 1 tab, PO, tid, Disp# 90 cap, Refills: 2, Pharmacy: [id number] Start Date: 10/12/20 Status: Ordered hydroCHLOROthiazide-lisinopril 12.5 mg-20 mg oral tablet Start: 09/21/18 9:23:00 AM EDT, 1 tab, PO, qAM Start Date: 09/21/18 Status: Ordered Keflex 500 mg oral capsule Start: 03/29/24 6:32:00 AM EDT, 1 cap, PO, q6h, Disp# 28 cap, Pharmacy: [facility] Start Date: 03/29/24 Status: Ordered Lipitor 20 mg oral tablet Start: 05/18/23 9:35:00 AM EST, 1 tab, PO, Daily Start Date: 05/18/23 Status: Ordered omeprazole 20 mg oral delayed release capsule Start: 09/21/18 9:23:00 AM EDT, 1 cap, PO, qAM Start Date: 09/21/18 Status: Ordered oxyCODONE 5 mg oral tablet Start: 03/29/24 6:46:00 AM EDT, 1 tab, PO, q6h, Disp# 20 tab, Refills: 0, PRN: as needed for pain, Pharmacy: [facility] Start Date: 03/29/24 Status: Ordered spironolactone 50 mg oral tablet Start: 03/21/24 12:27:00 PM EDT, 1 tab, PO, Daily Start Date: 03/21/24 Status: Ordered Mental Status 03/31/24 Barriers to Learning one year None evide nt Mandatory Health Literacy Documentation Yes Health Literacy Communication Barriers N ever Primary Language Serbian Problem List Condition Confirmation Course Effective Dates Status Health St atus Informant Facet arthropathy, cervical Confirmed Active Cervical vertebral fusion Confirmed Active History of fusion of cervical spine Confirmed Active Hypertension Confirmed Active Low back pain Confirmed Active Myofascial pain Confirmed Active Neck pain Confirmed Active Cervical stenosis of spine Confirmed Active Diagnosis Diagnosis Type Effective Dates Health Status Cl inical Service Informant S/P spinal fusion Discharge Diagnosis 03/31/24 Procedures Procedure Date Related Diagnosis Body Site [...] fusion/alllograft 2from lumbar fusion surgery on 05/22/2017 Social History Social History Type Response Smoking Status Former Smoker, quit within 31 days - 1 yr Sex Female Sex Representation Female (finding) Implantable Device List Procedure Provider Procedure Date Device Type Site Unknown Unknown 03/28/24 Unknown Unknown Device Identifier Serial Number Lot [...] Active Unkn own Unknown Unknown n/a Unknown 01/28/27 Unknown Unknown Active Unkn own Unknown Unknown n/a Unknown 11/01/26 Unknown Unknown Active Unkn own Procedure Provider [...] Unknown Unknown Active Unkn own Unknown Unknown [id number] AAC Unknown 12/13/24 Unknown Unknown Active Unknown [...] Unkn own Ortho Outpt Note * NIKKO Harrison, Lana Hercules: PERFORM Event Display: Ortho Outpt Note Authored Date: [id number] Chief Complaint drain removal Primary Care Provider MD Jacinto, Kisha Garcias Referring Provider MD Sabine, Augie Brunson Subjective This note was created using voice recognition software. Patient presents today for surgical drain removal. She is accompanied by . She is statuspost T9-L3 posterior arthrodesis with Dr. Regalado on 03/28/2024, approximately 3 days postop. She has had a decrease in her drain output. No fevers. Objective Physical Exam Patient sitting in no acute distress. Her postoperative dressings were taken down. She has a well-healing midline and left iliac crest site incisions,C/D/I. [place] are in place. Both drains had approximately 25 cc of serosanguineousfluid in it. The drains were removed without any comp lication. Bandage wasplaced over each drain site and gauze and paper tape dressing were placed over her midline incision and the iliac crest site incision. Assessment/Plan 1.S/P spinal fusion Patient presents today for surgical drain removal. Drain was removed without any complication. Wound care discussed. Her is going to see Dr. Regalado on April 15 and she was due to see ALEJANDRO Ahn, on April 20. They live 2.5 hours away. Therefore, I am going to have her see Dr. Regalado on Apriluring her 's appointment to save them a trip. Electronic Signature on File Electronically Reviewed/Signed by: Lana Harrison PA-C Author Signature Dt/Tm:03/31/2024 12:37PM Division of Orthopaedics Electronically Reviewed/Signed by: Augie Regalado MD Cosigner Signature Dt/Tm: 04/01/2024 09:28 AM Division of Orthopaedics YONY Patient Care team information Care Team Personnel Name: Kaye Maldonado Kayla Position: Pharmacist Member Role: Pharmacy - Lifetime Name: MD Jacinto, Kisha Garcias Position: Referring DIRECT Member Role: Primary Care Provider Address: [address] [place] [id number] Name: Jo-Ann Snow Position: Rev Int - Closing Coordinator Member Role: HIS Lifetime Care Team Related Persons Name: NIC RILEY Name: NIC RILEY
--- OUTSIDE RECORDS SUMMARY | 2024-06-22 06:12 | External Medical Summary | Continuity of Care Document ---
Author Name Unknown Organization [facility] [address] [facility] [address] [place] [phone] Care Team Providers Care Mailroom Assistant Name Role Phone Ksiha Casey Primary Care Physician [phone] Encounter [facility] FINNBR [id number] Date(s): 04/15/24 - [facility] [address] [facility] [place] [address] [facility] [address] [place] [address] [phone] Encounter Diagnosis Lumbar pain(Discharge Diagnosis) - 04/15/24 Discharge Disposition: Home or Self Care Attending Physician: MD Regalado Jesse E Allergies, Adverse Reactions, Alerts Substance Criticality Severity Reaction Reaction Severity Status naproxen Vomiting Active aspirin Vomiting Active Levaquin Vomiting Nausea Active Assessment and Plan Extracted from: Title:Clinical Document Author:MD Selene, Becky dye Date:04/15/24 OUTPATIENT NOTE Name: JOSIAH RILEY Patient Number:[id number] : 1965 Date of Service: 04/15/2024 Interval history: Patient is a 59-year-old female status post T9-L3 posterior instrumented fusion on 03/28/2024. Doing well postoperatively. No issues or concerns. No fevers or chills. No new symptoms. Ambulating with a walker. Physical Exam: General: Alert, oriented in NAD Hip Flexor Quad AT EHL GS RIGHT 5 5 5 5 5 LEFT 5 5 5 5 5 Sensation to Light Touch L2 L3 L4 L5 S1 RIGHT Intact Intact Intact Intact Intact LEFT Intact Intact Intact Intact Intact Assessment and plan: Patient is a 59-year-old female status post T9-L3 PSIF Patient doing quite well. [place] removed today. Plan to see patient back at next scheduled visit, x-rays of the thoracic and lumbar spine AP and lateral Physician Attestation: x I saw and evaluated the patient on the date of service. Discussed with resident and agree with resident s finding and plan as documented in the resident s note. Have not seen the patient. Have reviewed the note. Have not seen patient, have reviewed the note, and I have personally discussed with the resident and/or physician putty mixer on the date of service. Other: Medications acetaminophen 500 mg oral tablet Start: [...] tid, Disp# 90 tab, PRN: spasms, Pharmacy: [facility] Start Date: 03/29/24 Status: Ordered gabapentin 600 mg oral tablet Start: 10/12/20 10:11:00 AM EDT, 1 tab, PO, tid, Disp# 90 cap, Refills: 2, Pharmacy: [id number] Start Date: 10/12/20 Status: Ordered hydroCHLOROthiazide-lisinopril 12.5 mg-20 mg oral tablet Start: 09/21/18 9:23:00 AM EDT, 1 tab, PO, qAM Start Date: 09/21/18 Status: Ordered Keflex 500 mg oral capsule Start: 03/29/24 6:32:00 AM EDT, 1 cap, PO, q6h, Disp# 28 cap, Pharmacy: [facility] Start Date: 03/29/24 Status: Ordered Lipitor 20 mg oral tablet Start: 05/18/23 9:35:00 AM EST, 1 tab, PO, Daily Start Date: 05/18/23 Status: Ordered omeprazole 20 mg oral delayed release capsule Start: 09/21/18 9:23:00 AM EDT, 1 cap, PO, qAM Start Date: 09/21/18 Status: Ordered oxyCODONE 5 mg oral tablet Start: 04/15/24 10:50:00 AM EDT, 1 tab, PO, q4h, Disp# 20 tab, Refills: 0, PRN: as needed for pain, Pharmacy: [id number] Start Date: 04/15/24 Status: Ordered oxyCODONE 5 mg oral tablet Start: 04/08/24 3:56:00 PM EDT, 5 mg =, PO, q6h, Disp# 20 tab, Refills: 0, PRN: as needed for pain,Pharmacy: [facility] Start Date: 04/08/24 Status: Ordered spironolactone 50 mg oral tablet Start: 03/21/24 12:27:00 PM EDT, 1 tab, PO, Daily Start Date: 03/21/24 Status: Ordered Mental Status 04/15/24 Barriers to Learning one year None evide nt Mandatory Health Literacy Documentation Yes Health Literacy Communication Barriers N ever Primary Language Hungarian Problem List Condition Confirmation Course Effective Dates Status Health St atus Informant Facet arthropathy, cervical Confirmed Active Cervical vertebral fusion Confirmed Active History of fusion of cervical spine Confirmed Active Hypertension Confirmed Active Low back pain Confirmed Active Myofascial pain Confirmed Active Neck pain Confirmed Active Cervical stenosis of spine Confirmed Active Diagnosis Diagnosis Type Effective Dates Health Status Clini naseem Service Informant Lumbar pain Discharge Diagnosis 04/15/24 Non-Specified Procedures Procedure Date Related Diagnosis Body [...] Unknown Unknown Active Unkn own Unknown Unknown [id number] AAC Unknown 12/13/24 Unknown Unknown Active Unknown [...] Unknown Unknown Unknown Unknown Active Unkn own Outpatient Note * MD Regalado Jesse E: MODIFY MD Regalado Jesse E: MODIFY Event Display: .Outpt Note Authored Date: [id number] OUTPATIENT NOTE Name: JOSIAH RILEY Patient Number:[id number] : 1965 Date of Service: 04/15/2024 Interval history: Patient is a 59-year-old female status post T9-L3 posterior instrumented fusion on 03/28/2024. Doing well postoperatively. No issues or concerns. No fevers or chills. No new symptoms. Ambulating witha walker. Physical Exam: General: Alert, oriented in NAD Hip Flexor Quad AT EHL GS RIGHT 5 5 5 5 5 LEFT 5 5 5 5 5 Sensation to Light Touch L2 L3 L4 L5 S1 RIGHT Intact Intact Intact Intact Intact LEFT Intact Intact Intact Intact Intact Assessment and plan: Patient is a 59-year-old female status post T9-L3 PSIF Patient doing quite well. [place] removed today. Plan to see patient back at next scheduled visit, x-rays of the thoracic and lumbar spine AP and lateral Physician Attestation: x I saw and evaluated the patient on the date of service. Discussed with resident and agree with residents finding and plan as documented in the residents note. Have not seen the patient. Have reviewed the note. Have not seen patient, have reviewed the note, and I have personally discussed with the resident and/or physician putty mixer on the date of service. Other: Electronic Signature on File Electronically Reviewed/Signed by: Martin Morton MD Author Signature Dt/Tm:04/15/2024 10:51 AM Resident Division of Orthopaedics Electronically Reviewed/Signed by: Augie Regalado MD Cosigner Signature Dt/Tm: 04/15/2024 11:34 AM Division of Orthopaedics NR Patient Care team information Care Team Personnel Name: Kaye Maldonado Kayla Position: Pharmacist Member Role: Pharmacy - Lifetime Name: MD Jacinto, Kisha Garcias Position: Referring DIRECT Member Role: Primary Care Provider Address: [address] [place] [address] Name: Jo-Ann Snow Position: Rev Int - Director Of Managed Care Member Role: HIS Lifetime Care Team Related Persons Name: NIC RILEY Name: NIC RILEY
--- OUTSIDE RECORDS SUMMARY | 2024-06-22 06:12 | External Medical Summary | Continuity of Care Document ---
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 Name Role Phone Kisha Casey Primary Care Physician [phone] Encounter [facility] FINNBR [id number] Date(s): 03/15/24 - [facility]/15/[address] [facility] [place] [address] [facility] [address], [address] [place] [address] [phone] Encounter Diagnosis Pseudoarthrosis of lumbar spine(Discharge Diagnosis) - 03/15/24 Fusion of spine, thoracic region(Discharge Diagnosis) - 03/15/24 Discharge Disposition: Home or Self Care Attending Physician: MD Regalado Jesse E Referring Physician: MD Jacinto, Kisha Garcias Allergies, Adverse Reactions, Alerts Substance Criticality Severity [...] for muscle spasms every 8 hours, Pharmacy: [id number] Start Date: 02/25/24 Stop Date: 03/16/24 Status: Ordered gabapentin 600 mg oral tablet Start: 10/12/20 10:11:00 AM EDT, 1 tab, PO, tid, Disp# 90 cap, Refills: 2, Pharmacy: [facility] Start Date: 10/12/20 Status: [...] tab, PRN: as needed for pain, Pharmacy: [facility] Start Date: 03/15/24 Stop Date: 04/14/24 Status: Ordered Mental Status 03/15/24 Barriers to Learning one year None evide nt Mandatory Health Literacy Documentation Yes Health Literacy Communication Barriers N ever Primary Language Tongan Problem List Condition Confirmation Course Effective Dates Status Health St atus Informant Facet arthropathy, cervical Confirmed Active Cervical vertebral fusion Confirmed Active History of fusion of cervical spine Confirmed Active Hypertension Confirmed Active Low back pain Confirmed Active Myofascial pain Confirmed Active Neck pain Confirmed Active Cervical stenosis of spine Confirmed Active Diagnosis Diagnosis Type Effective Dates Health Status Clinical Service Informant Pseudoarthrosis of lumbar spine Discharge Diagnosis 03/15/24 Non-Specified Fusion of spine, thoracic region Discharge Diagnosis 03/15/24 Procedures Procedure Date Related Diagnosis Body Site [...] Exam Date Time Procedure Performing Provider Status 03/15/24 12:36 PM XR Spine Lumbosacral 2 or 3 Views Teresa Medina; Final Notes: (XR Spine Lumbosacral 2 or 3 Views) Reason For Exam: back pain XR Spine Lumbosacral 2 or 3 Views EXAMINATION: XR Spine Lumbosacral 2 or 3 Views CLINICAL HISTORY: S32.009K: Unspecified fracture of unspecified lumbar vertebr; S32.009K: Unspecified fracture of unspecified lumbar vertebr; Back pain COMPARISON: Prior study dated 02/25/2024 FINDINGS: Flexion and extension views of the thoracolumbar spine. Posterior fusion hardware spanning from T10S1. Metallic cage spacer at L2-L3. There is interbody fusion at L4-L5 and L5-S1. There are fractures of the rods at L2. There is a 7 mm anterolisthesis of L2 on 3 that is stable between flexion and extension views. Vertebral body heights are maintained. Normal soft tissues. IMPRESSION: There are fractures of the posterior fusion hardware rods at L2. Workstation ID: [id number] Final Dictated by:MD Crenshaw Eric A Dictated DT/TM:03/15/2024 1:32 Signed by:MD Crenshaw Eric A Signed (Electronic Signature):03/15/2024 1:31 p Social History Social History Type Response [...] Unknown Unknown Active Unkn own Unknown Unknown [id number] AAC Unknown 7/1/25 Unknown Unknown Active Unknown Unknown Unknown na [...] Unknown Unknown Unknown Unknown Active Unkn own Pre-OP H & P * ALEJANDRO Avalos Kelly A: PERFORM Event Display: Pre-OP H & P Authored Date: [id number] Name:JOSIAH AVALOS Patient Number:[id number] :1965 Date of Service:03/15/2024 Chief Complaint thoracolumbar fusion follow up History of Present Illness Patient presents clinic today for reevaluation and to discuss recentthoracic and lumbar CT scans which were obtained afteran acute visit on 02/25/2024. Patient reports that on 02/22/2024 she rolled over in bed to reach for pillow and felt a painful pop in her thoracolumbarspine. She sought further evaluationand was found to have broken hardware on herthoracolumbar radiographs. CTscan of the thoracic and lumbar spine were obtained and keke ent returns to clinic to discuss these results. Patient notes intermittent bilateral anterior thigh pain which occurspending on her movement or activity level. She notes that she has been doing fairly well since her surgery in Maywhich was a sfyfeyhdT76-L4 posterior instrumented fusion performed Dr. Regalado. Patient does have a history of osteopenia, with last DEXA scan in October 2018which revealed a T-score of-1.6. Patient wasa former smoker she reports he quit smoking a few weeks ago. She is not using any tobacco and other than any other forms. Review of Systems Thoracolumbar back pain with intermittent leg pain, denies any bowel or bladder incontinence, denies any balance dysfunction. Physical Exam Patient is alert and cooperative. She is in no acute distress. She is able to stand without assistance. She is well scarred incision extends from the upper thoracic area to the sacralarea midline. She does note some superficial numbness across the small of her low back. No redness or skin breakdown is noted. She demonstrates 5 out of 5 strength in her lower extremities throughout without paresthesias or anesthesias in her legs or feet. No peripheral edema is noted. She has S1 S1-2 without murmurs rubs or gallops. She does haveinspiratorywheezes noted in upper lung muir with posteriorauscultation. No cough or sputum noted on examination. Abdomenis soft, nontender with active bowel sounds x 4 quadrants. Diagnostic Results Lumbar x-rays were obtained including AP and lateral viewsflexion extension x- rayswhich showsbilateralhardware failureat the L2-L3 level. Previously seen on radiographs with unilateral roddisruption. Assessment/Plan 1.Fusion of spine, thoracic region Patient had hardware failure due to pseudoarthrosis of the thoracolumbarspine. She has recentlyquit smoking which is certainly an benefit for her. Does have a history of osteopenia and so we recommended a DEXA scanto be done at an outside institution where she previously received her DEXA study. 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 A prescription for tramadol 50 mg 1 tablet twice daily dispense 60 tablets wassent to her preferred pharmacy after the PDMP was reviewed without concern. For treatment of her symptomatic nonunion with hardware failure, we proposed surgical interventionin the form of a T9-L3 revision posterior segmental instrumentation and fusion with iliac crestautograft, allograft possible infuse. This to be done at the [facility] operating room in the near future as an OP ER admission. Surgical consent was reviewed today in line byline fashion was signed appropriately. We will have her obtain basic blood work including BMP, CBC with differential,vitamin D level dueto history of vitamin D deficiency. Attestation Disclaimer: This documentation was prepared (fully or partially) utilizing Workbooks Speech Recognition software. No method of documentation is perfect. Grammatical errors, random word insertions, pronoun errors and incomplete sentences are occasional consequences of the system due to software/hardware limitations and/or ambient noise. Effort is given to identify and correct these errors during the course of the documentation but it is not always able to capture every error. Any questions or concerns about the context contained within this documentation should be directed to the provider forclarification through PowerChart or via our office at [phone]. Problem List/Past Medical History Ongoing Cervical stenosis of spine Cervical vertebral fusion Facet arthropathy, cervical History of fusion of cervical spine Hypertension Low back pain Myofascial pain Neck pain Procedure/Surgical History Revision| Service Date: 2Revision L2 and L3 laminectomy, medial fasciectomy, foraminotomies.| Service Date: 12/27/2018Surgery - Removal of hip bolts, Iliac Bolts| Service Date: 01/13/2018Lumbar spinal fusion| Service Date: 05/22/2017Cervical spinal fusion| Service Date: 08/13/2016Lumbar spinal fusion| Service Date: 08/31/2015Lumbar spinal fusion| Service Date: 05/26/2014Left Tympanomastoidectomy| Service Date: reast reduction| Service Date: 07/2006Colonoscopy| Service Date: 2004TAH - Total abdominal hysterectomy| Service Date: 1991Cesarean section| Service Date: 1990 Medications Home acetaminophen(acetaminophen 500 mg oral tablet), 1000 mg= [...] PO, qAM traMADol(traMADol 50 mg oral tablet), 50 mg= 1 tab, PO, bid, PRN ubiquinone(Co-Q10 100 mg oral capsule), 100 mg= 1 cap, PO, Daily Allergies LevaquinVomiting, Nausea aspirinVomiting naproxenVomiting Social History Patient quit smoking recently. Electronic Signature on File Electronically Reviewed/Signed by: ALEJANDRO Stevens Author Signature Dt/Tm:03/15/2024 01:23 PM Division of Orthopaedics PIETRO * MD Regalado Jesse E: PERFORM Event Display: Pre-OP H & P Authored Date: Patient was seen examined with the nurse practitioner: With her history and physical patient comes in and seen a acute injury clinic APPearlier this month after feeling a pop twisting in bed noted imaging at that point noticed that one of the rods brokensubsequent CT verifying nonunion x-rays today shows both rods brokenconsistent with his nonunion that is more symptomaticgiven the stability of her spine and would recommend that we revise thingsand she is adamant about using iliac crest opposed any infuse or allograftshe does have some haloing of her most proximal screws at T10 onthe CT I think we could potentiallyincrease her screw size still has some intact medial wall at the post take her up to T9but hopefully not take her any more than that so elected thentake a round of herthoracicproximally andat the mid apex of her concavitydiscussed the goal of surgeries to get her diffuse across that segment discussed risk clued infection bleeding stroke DVT blood clot CSF leak dural tearepidural hematoma prone related complications like ulnar nerve dysfunction [place] all her questions were answered addressed consent was today today in clinic Electronic Signature on File CC: Kisha Casey MD [address] [place] [id number] * CC: Paty Blount PA-C [address] [facility] [address] [facility] [address] Electronically Reviewed/Signed by: Augie Regalado MD Author Signature Dt/Tm:03/15/2024 01:29 PM Division of Orthopaedics JOJO Patient Care team information Care Team Personnel Name: Kaye Maldonado Kayla Position: Pharmacist Member Role: Pharmacy - Lifetime Name: MD Jacinto, Kisha Garcias Position: Referring DIRECT Member Role: Primary Care Provider Address: [address] [place] [phone] Name: Jo-Ann Snow Position: Rev Int - Real Estate Appraiser Supervisor Member Role: HIS Lifetime Care Team Related Persons Name: NIC AVALOS Name: NIC AVALOS"
--- OUTSIDE RECORDS SUMMARY | 2024-06-22 06:12 | External Medical Summary | Continuity of Care Document ---
Author Name Unknown Organization [facility] Address [address] [place] [address] [id number] Care Team Providers Care Silk Presser Name Role Phone Kisha Casey Primary Care Physician [phone] [id number] Date(s): 03/28/24 - 03/29/[address] [phone] Discharge Disposition: Home or Self Care Attending Physician: MD Sabine, Augie Brunson Allergies, Adverse Reactions, Alerts Substance Criticality Severity Reaction Reaction Severity Status naproxen Vomiting Active aspirin Vomiting Active Levaquin Vomiting Nausea Active Functional Status 03/29/24 Neurological Symptoms None ADLs Minimal assistance Facial Symmetry Symmetric Gait Steady Swallowing Difficulty None Level of Consciousness Neuro Alert Hallucinations Present None History of Fall in Last 3 Months Martinez N o Presence of Secondary Diagnosis Martinez Ye s Use of Ambulatory Aid Martinez None/bedrest /nurse assist IV/Heparin Lock Fall Risk Martinez Yes Gait/Transferring Fall Risk Martinez Weak Mental Status Fall Risk Martinez Oriented t o own ability Martinez Fall Risk Score 45 Martinez Fall Risk Low Risk Speech Pattern Clear Medications acetaminophen 500 mg oral tablet Start: [...] tid, Disp# 90 tab, PRN: spasms, Pharmacy: [facility] Start Date: 03/29/24 Status: Ordered gabapentin 600 mg oral tablet Start: 10/12/20 10:11:00 AM EDT, 1 tab, PO, tid, Disp# 90 cap, Refills: 2, Pharmacy: [id number] Start Date: 10/12/20 Status: Ordered HumaLOG Sliding Scale Low Dose Range: SSI, injection, subQ, 03/28/24 10:00:00 PM EDT, 03/28/24 9:35:28 PM EDT, 03/28/24 20:00:00 EDT Start Date: 03/28/24 Stop Date: 03/28/24 Status: Completed hydroCHLOROthiazide-lisinopril 12.5 mg-20 mg oral tablet Start: 09/21/18 9:23:00 AM EDT, 1 tab, PO, qAM Start Date: 09/21/18 Status: Ordered Keflex 500 mg oral capsule Start: 03/29/24 6:32:00 AM EDT, 1 cap, PO, q6h, Disp# 28 cap, Pharmacy: [facility] Start Date: 03/29/24 Status: Ordered Lipitor [...] 0, PRN: as needed for pain, Pharmacy: [facility] Start Date: 03/29/24 Status: Ordered spironolactone 50 mg oral tablet Start: 03/21/24 12:27:00 PM EDT, 1 tab, PO, Daily Start Date: 03/21/24 Status: Ordered Mental Status 03/28/24 Communication Barrier Present No Primary Language French Problem List Condition Confirmation Course Effective Dates [...] on 05/22/2017 Results Laboratory List Name Date Blood Glucose Monitoring Nurse POC (Gluc ose Meter Nurse POC) 03/29/24 Glucose Meter (GLUCOSE METER) 03/29/24 Basic Metabolic Panel (BMP) 03/29/24 Complete Blood Count (CBC w Platelets) 1 Vitamin D, 25-Hydroxy Level, Total 03/29 Blood Glucose Monitoring Nurse POC (Gluc ose Meter Nurse POC) 03/28/24 Glucose Meter (GLUCOSE METER) 03/28/24 Glucose Meter (GLUCOSE METER) 03/28/24 IStat Gases, Arterial (ANES) (I-STAT GAS ,ART(ANES)) 03/28/24 Blood Type/Antibody Screen (for possible transfusion) (TYPE AND SCREEN) 03/28/24 IStat Gases, Arterial (ANES) (I-STAT GAS ,ART(ANES)) 03/28/24 Blood Glucose Monitoring Nurse POC (Gluc ose Meter Nurse POC) 03/28/24 Most recent to oldest [Reference Range]: 1 2 3 Hct, POC [38-51 %] 30 % *LOW* (03/28/24 10:46 AM) 31 % *LOW* (03/28/24 9:02 AM) Hgb, POC [12-17 g/dL] 10.2 g/dL *LOW* (03/28/24 10:46 AM) 10.5 g/dL *LOW* (03/28/24 9:02 AM) ABO/Rh A POSITIVE *Unknown* (03/28/24 9:10 AM) Antibody Scr NEGATIVE *Unknown* (03/28/24 9:10 AM) Expires at 0600AM on 03/31/2024 *Unknown* (03/28/24 9:10 AM) # Units 2 (03/28/24 9:10 AM) R Number NRQ *Unknown* (03/28/24 9:10 AM) eGFR CKD-EPI [>60 mL/min/1.73 m2] 41 mL/min/1.73 m2 *LOW* (03/29/24 8:03 AM) Base Deficit, POC [0-2 mmol/L] 4 mmol/L *HI* (03/28/24 10:46 AM) 1 mmol/L (03/28/24 9:02 AM) Blood Glucose [70-120 mg/dL] 153 mg/dL 1 *HI* (03/28/24 9:35 PM) 157 mg/dL 2 *HI* (03/28/24 12:50 PM) Glu (wb), POC by IStat [70-105 mg/dL] 125 mg/dL *HI* (03/28/24 10:46 AM) 112 mg/dL *HI* (03/28/24 9:02 AM) Blood Glucose Ref Range [70 - 120 mg/dl] (03/29/24 6:56 AM) [70 - 120 mg/dl] (03/28/24 9:35 PM) [70 - 120 mg/dl] (03/28/24 12:50 PM) SaO2(a), POC [95-98 %] 99 % *HI* (03/28/24 10:46 AM) 100 % *HI* (03/28/24 9:02 AM) Vitamin D, 25-Hydroxy [30-100 ng/mL] 39 ng/mL 3 (03/29/24 8:03 AM) Estimated CrCl 43.30 mL/min (03/29/24 8:52 AM) MPV [9.0-12.2 fL] 10.2 fL (03/29/24 8:03 AM) RDW [11.5-14.2 %] 14.4 % *HI* (03/29/24 8:03 AM) pH (a), POC [7.35-7.45 unit] 7.290 unit *LOW* (03/28/24 10:46 AM) 7.346 unit *LOW* (03/28/24 9:02 AM) pCO2 (a), POC [35-45 mmHg] 47.8 mmHg *HI* (03/28/24 10:46 AM) 45.8 mmHg *HI* (03/28/24 9:02 AM) pO2 (a), POC [80-105 mmHg] 160 mmHg *HI* (03/28/24 10:46 AM) 513 mmHg *HI* (03/28/24 9:02 AM) HCO3(a), POC [22-26 mmol/L] 23.2 mmol/L (03/28/24 10:46 AM) 25.0 mmol/L (03/28/24 9:02 AM) Ion Ca(wb), POC [1.12-1.32 mmol/L] 1.14 mmol/L (03/28/24 10:46 AM) 1.17 mmol/L (03/28/24 9:02 AM) Na (wb), POC [138-146 mmol/L] 137 mmol/L *LOW* (03/28/24 10:46 AM) 138 mmol/L (03/28/24 9:02 AM) K (wb), POC [3.5-4.9 mmol/L] 4.1 mmol/L (03/28/24 10:46 AM) 4.1 mmol/L (03/28/24 9:02 AM) Component RED CELLS *Unknown* (03/28/24 9:10 AM) Anion Gap [5-14 mmol/L] 14 mmol/L (03/29/24 8:03 AM) BUN [6-23 mg/dL] 22 mg/dL (03/29/24 8:03 AM) Ca [8.4-10.2 mg/dL] 9.2 mg/dL (03/29/24 8:03 AM) Cl- [98-107 mmol/L] 97 mmol/L *LOW* (03/29/24 8:03 AM) HCO3 [22-29 mmol/L] 22 mmol/L (03/29/24 8:03 AM) Cret [0.60-1.00 mg/dL] 1.49 mg/dL *HI* (03/29/24 8:03 AM) Glu [74-109 mg/dL] 123 mg/dL 4 *HI* (03/29/24 8:03 AM) Gluc Meter [74-109 mg/dL] 123 mg/dL *HI* (03/29/24 6:37 AM) 153 mg/dL *HI* (03/28/24 9:34 PM) 157 mg/dL *HI* (03/28/24 12:50 PM) Hct [35-44 %] 25.9 % *LOW* (03/29/24 8:03 AM) Hgb [11.7-15.0 g/dL] 8.7 g/dL *LOW* (03/29/24 8:03 AM) K [3.5-5.1 mmol/L] 4.8 mmol/L (03/29/24 8:03 AM) MCH [28-33 pg] 31.1 pg (03/29/24 8:03 AM) MCHC [32-36 g/dL] 33.6 g/dL (03/29/24 8:03 AM) MCV [81-96 fL] 92.5 fL (03/29/24 8:03 AM) Na [136-145 mmol/L] 133 mmol/L *LOW* (03/29/24 8:03 AM) Plts [150-350 K/uL] 294 K/uL (03/29/24 8:03 AM) RBC [3.90-5.00 M/uL] 2.80 M/uL *LOW* (03/29/24 8:03 AM) Temp(a) 36.5 C (03/28/24 10:46 AM) 37.0 C (03/28/24 9:02 AM) WBC [4.0-10.4 K/uL] 18.60 K/uL *HI* (03/29/24 8:03 AM) 1Result Comment: Performed at: [facility], [address] [place] [address] [place] [address] 2Result Comment: Performed at: [facility], [address] [place] [address] [place] [address] 3Result Comment: Deficiency: <20 ng/mL Insufficiency: 21-29 ng/mL Sufficiency: 30-100 ng/mL Potenial Toxicity: >150 ng/mL 4Result Comment: ADA recommendation for FASTING Serum/Plasma Glucose: Normal: 70-100 mg/dL Prediabetes: 100-125 mg/dL Diabetes: 126 mg/dL or higher Vital Signs Most recent to oldest [Reference Range]: 1 2 3 Height 162 cm (03/28/24 6:31 AM) Patient Weight 83.3 kg (03/28/24 6:31 AM) Body Mass Index 31.74 kg/m2 (03/28/24 6:31 AM) Temperature [36.5-37.9 DegC] 36.3 DegC *LOW* (03/29/24 9:30 AM) 36.1 DegC *LOW* (03/29/24 7:39 AM) 36.3 DegC *LOW* (03/29/24 4:27 AM) Heart Rate 94 bpm (03/29/24 9:30 AM) 95 bpm (03/29/24 7:39 AM) 93 bpm (03/29/24 4:27 AM) Respiratory Rate 20 br/min (03/29/24 9:30 AM) 20 br/min (03/29/24 7:39 AM) 16 br/min (03/29/24 4:27 AM) Blood Pressure 123/78mmHg (03/29/24 9:30 AM) 141/84mmHg (03/29/24 7:39 AM) 110/80mmHg (03/29/24 4:27 AM) Mean Blood Pressure 102 mmHg (03/29/24 7:39 AM) 87 mmHg (03/29/24 4:27 AM) 85 mmHg (03/29/24 12:10 AM) Cuff Pulse Pressure 45 mmHg (03/29/24 9:30 AM) 57 mmHg (03/29/24 7:39 AM) 30 mmHg (03/29/24 4:27 AM) BP Location # 1 Left Arm (03/29/24 4:27 AM) Left Arm (03/29/24 12:10 AM) Left Arm (03/28/24 8:03 PM) Social History Social History Type Response [...] Unknown Unknown Active Unkn own Unknown Unknown [id number] AAC Unknown 12/13/24 Unknown Unknown Active Unknown [...] Unknown Unknown Unknown Unknown Active Unkn own Surgical operation note * MD Sabine, Augie Brunson: PERFORM Event Display: .Operative Report Authored Date: [id number] OPERATIVE REPORT Name: JOSIAH RILEY Patient Number: [id number] : 1965 Date of Service: 03/28/2024 SURGEON: Augie Regalado MD COMPUTER SUPPORT ANALYST(s): Clifford Sanchez MD PREOPERATIVE DIAGNOSIS: Thoracolumbar pseudoarthrosis Broken spine hardware Prior history of smoking POSTOPERATIVE DIAGNOSIS: Thoracolumbar pseudoarthrosis Broken spine hardware Prior history of smoking OPERATION PERFORMED: Revision T9-L3 posterior arthrodesis Revision T9-S1 posterior segmental instrumentation Morselized iliac crest autograft through separate incision Morselized allograft ANESTHESIA: General COMPLICATIONS: None SPECIMENS: None ESTIMATED BLOOD LOSS: 200 INDICATIONS: _ FINDINGS: Broken hardware OPERATION: _ Electronic Signature on File Electronically Reviewed/Signed by: Augie Regalado MD Author Signature Dt/Tm:03/29/2024 09:04 AM Division of Orthopaedics JOJO * MD Sabine, Augie Brunson: PERFORM Event Display: .Operative Report Authored Date: [id number] Indications: This very pleasant female who originally went a nonunion lumbar surgery after outside hospital surgery by myself and developed junctional disease and subsequent surgery and then has wenton to nonunion at the site of her connection point causing her mechanical symptoms with broken rodspatient failed conservative measures and elected undergo a revision fusion surgery consent was obtained and goals risk discussed her preoperative appointment Operation: Patient was brought to the op room underwent intubation and peripheral and arterial lineplacement anesthesia patient was then carefully transferred prone on the lin spine table bony problems well-padded including ulnar nerves and eyes free of pressure then we sterilely prepped and draped patient's low back in standard fashion for an official timeout verifying patient seizure allergy antibiotic ministration then we made a left-sided transverse oblique incision left posterior iliac crest continue down to the cortical bone skeletonized this above the caudal remove the cortical bone XL rongeur and intervening cancellous bone And gouge pituitary cups good wound normal saline dispersed vancomycin at the soft tissue closed fashion OPS deep dermis 1 PDS dermis 2-0 PDS stay for the skin Then we used patient's prior midline incision continued to fascia with this midline for to subperiosteal dissection the spinous process and lamina of hardware previous from T10 all way down to S1 screws removed and caps rods as well as the ending and connectors were all broken hardware and then we dissected out the T9 transverse process removed all nonunion tissue throughout all way down to L3 wethen removed patient's previous T10 screws upsize these in diameter to get bony purchase and then cannulae down to and creating pedicle tracts at T9 and then tap ball-tipped feeler and subsequent placed DePuy Expedium screws down to T9 we then measured cut and contoured 2 lordotic rods spanning from T8 all way down to S1 and placing caps and final tightened cortical standers on the left side we placed additional third sulema connected by [id number] connector across L1 L3 segments. We then jeffery good wound 2 was normal saline decorticated the posterior elements from T8 all way down the L3 with her bur and disperse her morselized local autograft as well as 60 cc morselized allograft across these areas decortication placed 2 subfascial TONI drain just in the epidural space injected Marcaine andepinephrine the paraspinal muscles dispersed vancomycin at the soft tissue closed fashion with PDS deep dermis 1 PDS dermis 2-0 PDS and marie with skin next sterile dressing was applied the wound patient was then carefully transferred supine hospital x-ray without complication Electronic Signature on File Electronically Reviewed/Signed by: Augie Regalado MD Author Signature Dt/Tm:03/29/2024 12:48 PM Division of Orthopaedics JOJO Discharge instructions * MD Gume, Clifford: MODIFY, PERFORM, MODIFY Event Display: Patient Discharge Instructions Authored Date: [id number] JOSIAH RILEY :1965 Visit Date:03/28/2024 Patient Discharge Instructions [facility] For medical concerns, call: . Date of Admission:03/28/2024 Date of Discharge:03/29/2024 Physician:MD Regalado Jesse E Service:Orthopaedic Surgery Discharge Disposition:Home . Advance Directive:None Reason for Hospitalization Hardware failure from prior thoracolumbar spinal fusion Your Diagnoses Hardware failure from prior thoracolumbar spinal fusion s/p revision fusion My [employer] Patient Portal: [place] [employer] makes it easy for you to manage your health information online. My [place] is a free service that provides you instant, secure access to your medical information anytime, anywhere. Sign in or set up your account today at [email or web address] Thank you for allowing us to assist you with your healthcare needs. If you need additional community resources, [facility] can help at https://www.pa211.org. 211 can assist you in connecting with social programs based on your unique needs and locations. 211 is an anonymous search that can help you locate resources for: Food, Housing, Transportation, Goods, Education and Healthcare. Medications What How Much When Instructions Next Dose New cephalexin (Keflex 500 mg oral capsule) 1 cap by mouth Every 6 hours Pickup at [facility] New oxyCODONE (oxyCODONE 5 mg oral tablet) 5 Milligram by mouth Every 6 hours as needed for as needed for pain Pickup at [facility] Changed cyclobenzaprine (Flexeril 5 mg oral tablet) 1 tab(s) by mouth 3 times daily as needed for spasms Pickup at [facility] Unchanged acetaminophen (acetaminophen 500 mg oral tablet) 2 tab(s) by mouth Every 8 hours Unchanged atorvastatin (Lipitor 20 mg oral tablet) 1 tab(s) by mouth Once daily Unchanged calcium-vitamin D (calcium with vitamin D 500 mg) 1 tab(s) by mouth 2 times daily Unchanged DULoxetine (DULoxetine 60 mg oral delayed release capsule) 1 cap by mouth Once daily Unchanged gabapentin (gabapentin 600 mg oral tablet) 1 tab(s) by mouth 3 times daily Unchanged hydroCHLOROthiazide-lisinopril (hydroCHLOROthiazide-lisinopril 12.5 mg-20 mg oral tablet) 1 tab(s) by mouth Once a day (in the morning) Unchanged omeprazole (omeprazole 20 mg oral delayed release capsule) 1 cap by mouth Once a day (in the morning) Unchanged spironolactone (spironolactone 50 mg oral tablet) 1 tab(s) by mouth Once daily Unchanged ubiquinone (Co-Q10 100 mg oral capsule) 1 cap by mouth Once daily Pharmacy Information [facility]: [address] [place] [address] SOLA Mendoza [phone] What How Much When Why Comments Stop Taking traMADol (traMADol 50 mg oral tablet) 1 tab(s) by mouth 2 times daily as needed for as needed for pain Fusion of spine, thoracic region Duration: 30 Days Allergies LevaquinVomiting, Nausea aspirinVomiting naproxenVomiting What to do next Instructions From Your Doctor Date of Service: 03/28/24 Surgeon: Augie Regalado MD OPERATION PERFORMED: T9-L3 revision PSIF Lumbar Spine Care Instructions: - After your drains are removed, change dressing daily with dry 4x4 gauze. After you take the dressing off and there is no drainage from the incision, you may shower the following day.Do NOT submerge woundinto whirlpool, bath, or pool. - You have dissolvable sutures in your incision. Allow the steri-strips to fall off on their own. -No drivingwhile taking narcotic pain medication. - Constipation is common with the use of narcotic pain medication.You should use an over the counter stool softenerof your choice while taking narcotic pain medication (ie: Colace, Senna, Miralax). - Please return to your pre-hospital medications unless directed otherwise. -Do not smoke or use products that contain nicotine. - Do not use Non-Steroidal Anti-Inflammatory medications (NSAIDs),which includes: Advil, Aleve, Ibuprofen, Motrin, Naprosyn. These medications all impede bone healing. - Activity, especially walking around your home, is encouraged. - No special exercises are necessary for the first 6 weeks post-op. - Do NOT do heavy housework, such as bed-making, vacuuming or laundry for the first 6 weeks after surgery. -NO bending, lifting, twisting, pulling or pushinggreater than 10 pounds for the first 6 weeks after surgery. - Also, please start taking an over the counter calcium supplement with vitamin D twice a day, any brand is fine. Lumbar Spine Activity Guidelines: 1. Use log rolling technique when getting out of bed. 2. Ambulate as tolerated; moving around helps reduce the risk of blood clots in the legs (DVT) thatmight travel to the lungs (PE). You are encouraged to walk at least 150 feet per day. Use your rolling walker if advised by Physical Therapy. 3. Take your time up and down the steps slowly, one step at a time - holding onto the rail with both hands. Someone supervise you on the steps for now. 4. No lifting more than 10 lbs, twisting, or bending motion You have been prescribed the followin.oxycodone 5 mg 1-2 tablets every 4-6 hrs as needed for pain 2.gabapentin 300 mg one tablet up to 3 times a day, or take your Gabapentin as previously prescribed above 3.flexeril 5mg one tablet 3 times a day as needed for muscle spasms Also, please start taking a calcium supplement with vitamin D twice a day, any brand is fine. Lumbar Instructions Explained 1.Pain Control: Use the prescribed pain medication over the first 48 hours after surgery, then you can begin to taper your use.DO NOT TAKE MORE THAN THE PRESCRIBED DOSE.It is not uncommon for patients to encounter more pain on the first or second day after surgery. This is the time when swelling peaks. Taking pain medication before bedtime will assist in sleeping. It is important not to drink alcohol or drive while taking narcotic medication. You have been prescribed the following pain medication: See checkmarks ( X) Oxycodone 5mg, 1-2 tabs every 4-6 hours as needed for pain ( )[place] (Hydrocodone/Tylenol) 5/325mg, 1-2 tabs every 4-6 hours as needed for pain ( X)Flexeril (Cyclobenzaprine) every 8-12hours as needed for muscle spasms ( X)Neurontin (Gabapentin)as prescribed ( X)You should also take Extra Strength Tylenol (Two 500 mg [id number] mg total) three times a day (every 8 hours) in addition to your prescribed medication. Do not exceed 3,000mg of Tylenol a day (risk of liver damage). Do not take Tylenol if you have a history of liver problems. ( ) Nonsteroidal anti-inflammatory medications including Ibuprofen or Aleve can be taken as directed over the counter to supplement other pain medications. ( )The pain medication that you have been prescribed contains Tylenol. Youmay nottake any Tylenolin additionto your prescribed pills, but you can take Tylenolin place ofyour prescribed medication when tapering from narcotics. Do not exceed more than 3,000mg of Tylenol from all sources in 24 hours. Remember to continue Tylenol as youwean from your narcotics. After your recovery, please properlydispose of all remaining narcotic pain medications. 2.You do need antibioticsat home while you still have drains. You have been prescribed [id number] to be taken four times a times until your drains are removed. Once those are removed, you no longer need antibiotics after your surgery. Longer acting and more potent antibiotics were given at the time of surgery to protect you in the post-operative period. 3.Please initiate the following over the counter supplements: ( X) Calcium 1000mg daily( X)Vitamin D2 or D3 1000 IU daily -- Any brand is fine may be obtained over the counter at any pharmacy or store. 4.Constipation: Narcotic pain medication will cause constipation. Adequate hydration and overthe counter stool softeners such as Colace should be used to minimize constipation.Take Colace 50-100mg twice a daily until you are done taking pain medication or you have normal bowel patterns.Eat a diet with lots of fruits, vegetables, and fiber. If you have not had a bowel movement by post-operative day 3, please try Miralax, Senna,or Milk of Magnesia per bottle instructions. 5.If chest pain or shortness of breath occurs, proceed to the closest emergency department. Should severe calf pain occur or significant swelling of calf and ankle, please call the office during business hours or contact on-call resident through the hospital ski tow operator [phone]. 6.Wound care: Once your drains have been removed, have a caregiverchange the dressing dailyuntil there is no more drainage from the skin. Once the drainage stops, the incision may be left open to air and you may shower. Pat the incision dry. Allow the Steri strips to fall off on their own. If they havent fallen off in 10 days, you may pull them off. No soaking in tub, hot tub, or pool.If your incision becomes red, hot, painful to touch, or has any significant discharge, please callthe office immediately. 7.Any unexplained pain, swelling, redness, cloudy drainage, bleeding, wound separation, or fever should be reported immediately.Certain amounts of redness aroundincisionor clear red or pink drainage is common after surgery; however, any concerning findings should be brought to our attention. Low grade temperature, usually less than 101.6F, is common up to 5 days after surgery. If your temperature is higher than this over a 24-hour period,call our office @ [phone]. If afterhours, call [phone] and ask for the Orthopaedic resident to be paged. 8.Activity:It is important to be up moving around safely in your home every 1-2 hours as tolerated, and with assistanceif needed. Frequentwalking will prevent blood clots and pneumonia and will help you get stronger after surgery. No lifting > 10 pounds; notwisting, pushing, or pulling, or repetitive bending motionsfor a total of 6 weeks after surgery. 9.Driving:Do not drive while you are taking any narcotic pain medication after surgery. 10.Your first appointment after surgerymost likely has already been arranged 3 weeksafter thesurgery. If not, please call [phone] to set up your appointment. 11.Any question or problemscan be taken care of 24 hours a day, 7 days a week. During business hours M-F 8-4:30, call [phone] with questions or concerns. After hours, acoveringphysician can addressissuesby calling the hospital [phone] asking for the Orthopaedic resident customer relations specialist to be paged. SMOKING is a major health concern!Smoking greatly increases the risk of heart disease, cancer andstroke. - If you and your family don't smoke, continue this healthy choice! Remember to avoid secondhand smoke. - If you or anyone in your household does use tobacco products, please follow any smoking cessationadvice/counseling you received while in the hospital. If you would like more information about how to live tobacco free, please call the numbers or access the websites below: [facility] Care Line: [place] Free QUITLINE: 3-288-BwhmOjz ( ) http://1800quitnow.cancer.gov http://www.determinedtoquit.com If you notice the following symptoms WORSENING SYMPTOMS: Call your doctor with questions regarding your Orthopaedic Injuriesconcerning: fevers > 101F or chills redness aroundincision drainage or pus fromincision increased swelling or pain numbness/tingling significant irritation from yourincision pain uncontrolled by your medications or any addition concerns/questions you feel necessary - 8am-4:30pm call our [facility] at - Evenings or Weekends call the hospital ski tow operator and ask for the Orthopaedic resident customer relations specialist to be paged If you experience chest pain or shortness of breath phone [phone] and report to the closest emergency room as this could be a sign of a heart attack (myocardial infarction) or blood clot in your lung (pulmonary embolism). If you were prescribed an antibiotic or blood thinner (such as Lovenox, Xarelto, or Eliquis) and you are unable to fill the prescription after discharge, please phone our office so we can advise you on a different medication or assist you to obtain a prescription. Questions regarding medication refills should be phoned into the office during normal business hours. We request 72 hours notification on need to refill medications. The resident staff will not fill medications during the evening or weekend hours. Other questions regarding a nerve pain catheter should be directed to the Acute Pain Management Service at and then ask forthe Acute Pain Resident at pager [phone]. Contact the [facility] Careline at . If unable to contact your physician and you feel it is an emergency, go to the nearest Emergency Room or call 911 Diet Instructions Regular diet Activity Instructions Weight Bearing Leg, Bilateral, Weight Bearing As Tolerated Follow-Up Appointments Scheduled Follow-Up Appointments Date/Time:Provider/Resource: Apr 11:25 ALEJANDRO Collins Kelly A Location/Instructions:[facility], [address], [address], [address], [place] [address] Date/Time:Provider/Resource: Jun 10:15 Shreyas HUYNH Location/Instructions:[facility], [address], [address], [address], [place] [address] Date/Time:Provider/Resource: Jun 10:45 MD Vilchis Jesse E Location/Instructions:[facility], [address], [address], [address], [place] [address] Someone Will Contact You Regarding These Appointments Drain pull appointment on 03/31/24 with Spine [facility]. Tests Pending Arterial Blood Gases To obtain results pending at hospital discharge, call and ask for the following Physician:MD Regalado Jesse E Procedures Performed T-L3 revision PSIF, iliac crest autograft 03/28/2024 Special Instructions Common Emergency Awareness Tips Call 911 immediately if: experiencing any of the warning signs and symptoms of stroke: B.E. F.A.S.T. Balance: is there trouble with walking or coordination Eyes: is there double vision or visual loss Face: Smile, do both sides of face move equally Arm: Raise arms, do both arms move equally Speech: Is speech slurred or inappropriate Time: Time is critical, call 911 immediately Heart Attack Signs Chest discomfort: Most heart attacks involve discomfort in the center of the chest and lasts more than a few minutes, or goes away and comes back. It can feel like uncomfortable pressure, squeezing, fullness or pain. Discomfort in upper body: Symptoms can include pain or discomfort in one or both arms, back, neck, jaw or stomach. Shortness of breath: With or without discomfort. Other signs: Breaking out in a cold sweat, nausea, or lightheaded. Remember, MINUTES DO MATTER. If you experience any of these heart attack warning signs, call 02-13- to get immediate medical attention! Education Materials General Anesthesia, Adult, Care After The following information offers guidance on how to care for yourself after your procedure. Your health care provider may also give you more specific instructions. If you have problems or questions, contact your health care provider. What can I expect after the procedure? After the procedure, it is common for people to: Have pain or discomfort at the IV site. Have nausea or vomiting. Have a sore throat or hoarseness. Have trouble concentrating. Feel cold or chills. Feel weak, sleepy, or tired (fatigue). Have soreness and body aches. These can affect parts of the body that were not involved in surgery. Follow these instructions at home: For the time period you were told by your health care provider: Rest. Do not participate in activities where you could fall or become injured. Do not drive or use machinery. Do not drink alcohol. Do not take sleeping pills or medicines that cause drowsiness. Do not make important decisions or sign legal documents. Do not take care of children on your own. General instructions Drink enough fluid to keep your urine pale yellow. If you have sleep apnea, surgery and certain medicines can increase your risk for breathing problems. Follow instructions from your health care provider about wearing your sleep device: Anytime you are sleeping, including during daytime naps. While taking prescription pain medicines, sleeping medicines, or medicines that make you drowsy. Return to your normal activities as told by your health care provider. Ask your health care provider what activities are safe for you. Take grzj-clm-edwslzk and prescription medicines only as told by your health care provider. Do not use any products that contain nicotine or tobacco. These products include cigarettes, chewing tobacco, and vaping devices, such as e-cigarettes. These can delay incision healing after surgery.If you need help quitting, ask your health care provider. Contact a health care provider if: You have nausea or vomiting that does not get better with medicine. You vomit every time you eat or drink. You have pain that does not get better with medicine. You cannot urinate or have bloody urine. You develop a skin rash. You have a fever. Get help right away if: You have trouble breathing. You have chest pain. You vomit blood. These symptoms may be an emergency. Get help right away. Call 911. Do not wait to see if the symptoms will go away. Do not drive yourself to the hospital. Summary After the procedure, it is common to have a sore throat, hoarseness, nausea, vomiting, or to feel weak, sleepy, or fatigue. For the time period you were told by your health care provider, do not drive or use machinery. Get help right away if you have difficulty breathing, have chest pain, or vomit blood. These symptoms may be an emergency. This information is not intended to replace advice given to you by your health care provider. Make sure you discuss any questions you have with your health care provider. Document Revised: 08/29/2022 Document Reviewed: 08/29/2022 [employer] Patient Education 2023 [employer]. Spinal Fusion, Adult, Care After This sheet gives you information about how to care for yourself after your procedure. Your doctor may also give you more instructions. If you have problems or questions, contact your doctor. What can I expect after the procedure? After the procedure, it is common to have: Back pain and stiffness. Pain in the area around your cut from surgery (incision). Follow these instructions at home: Medicines Take hvle-lnz-fferxsi and prescription medicines only as told by your doctor. These include any medicines for pain or medicines to thin your blood (anticoagulants). If you were prescribed an antibiotic medicine, take it as told by your doctor. Do not stop it even if you start to feel better. If told, take steps to prevent problems with pooping (constipation). You may need to: Drink enough fluid to keep your pee (urine) pale yellow. Take medicines. You will be told what medicines to take. Eat foods that are high in fiber. These include beans, whole grains, and fresh fruits and vegetables. Limit foods that are high in fat and sugar. These include fried or sweet foods. Ask your doctor if you should avoid driving or using machines while you are taking your medicine. Bleeding precautions If you are taking blood thinners: Talk with your doctor before taking any medicines that have aspirin or NSAIDs, such as ibuprofen. Take medicines exactly as told. Take them at the same time each day. Avoid doing things that could hurt or bruise you. Take action to prevent falls. Wear an alert bracelet or carry a card that shows you are taking blood thinners. If you have a brace: Wear the brace as told by your doctor. Take it off only as told by your doctor. Check the skin around the brace every day. Tell your doctor if you have any concerns. Loosen the brace if your legs or toes: Tingle. Become numb. Turn cold and blue. Keep the brace clean. If the brace is not waterproof: Do not let it get wet. Cover it with a watertight covering when you take a bath or shower. Managing pain, stiffness, and swelling If told, put ice on the affected area. To do this: If you have a removable brace, take it off as told by your doctor. Put ice in a plastic bag. Place a towel between your skin and the bag. Leave the ice on for 20 minutes, 23 times a day. Take off the ice if your skin turns bright red. This is very important. If you cannot feel pain, heat, or cold, you have a greater risk of damage to the area. Incision care Follow instructions from your doctor about how to take care of your incision. Make sure you: Wash your hands with soap and water for at least 20 seconds before and after you change your bandage. If you cannot use soap and water, use hand head trimmer. Change your bandage. Leave stitches or skin glue in place for at least 2 weeks. Leave tape strips alone unless you are told to take them off. You may trim the edges of the tape strips if they curl up. Keep your incision clean and dry. Do not take baths, swim, or use a hot tub. Ask your doctor about taking showers or sponge baths. Check your incision every day for signs of infection. Check for: More redness, swelling, or pain. Fluid or blood. Warmth. Pus or a bad smell. Activity Rest as told by your doctor. Get up to take short walks every 1 to 2 hours. Ask for help if you feel weak or unsteady. Follow instructions from your doctor about how to move. Use good posture to help your spine heal. Do not lift anything at all, or anything that is heavier than the limit you are told, until your doctor says that it is safe. Do not twist or bend at the waist until your doctor says it is okay. Protect your back. To do this: Do not make pushing and pulling motions. Do not lift anything over your head. Do not sit or lie down in the same position for a long time. Do exercises as told by your doctor. General instructions Do not drive until your doctor says it is okay. Wear compression stockings as told by your doctor. Do not take out your drain tube. Follow instructions from your doctor about how to take care of it. Do not smoke or use any products that contain nicotine or tobacco. If you need help quitting, ask your doctor. Keep all follow-up visits. Contact a doctor if: Your pain gets worse or does not get better with medicine. Your legs become painful, swollen, red, or warm to the touch. You have any of these signs of infection in your incision: More redness, swelling, or pain. Fluid or blood. Warmth. Pus or a bad smell. You have a fever. You vomit or you feel like you may vomit. You have new or worse weakness or loss of feeling (numbness) in your legs. You cannot control when you poop or pee. Get help right away if: Your pain is very bad. You have a headache that is worse when you are sitting or standing. You have chest pain. You have trouble breathing. These symptoms may be an emergency. Get help right away. Call your local emergency services (911 int [place] Do not wait to see if the symptoms will go away. Do not drive yourself to the hospital. Summary After the procedure, it is common to have pain in your back and pain in your incision. Putting ice on the area and taking pain medicines may help to control the pain. Follow directions from your doctor. Rest and protect your back as much as possible. Do not twist or bend at the waist. Rest, but get up to take short walks every 12 hours. This information is not intended to replace advice given to you by your health care provider. Make sure you discuss any questions you have with your health care provider. Document Revised: 09/19/2020 Document Reviewed: 09/19/2020 [employer] Patient Education 2023 [employer] Note * MD Gume, Clifford: PERFORM, MODIFY Event Display: Brief Operative Note Authored Date: [id number] BRIEF OPERATIVE NOTE Name: JOSIAH RILEY Patient Number: [id number] : 1965 Date of Service: 03/28/2024 Pre-op Diagnosis: nonunion & hardware failure Post-op Diagnosis:status post hardware revision for above Procedure:T9-L3 revision PSIF/TLIFfor Surgeon:Augie Regalado MD Assistants: Clifford Dunaway, PGY2 Anesthesia:GETA Estimated Blood Loss:200cc _ Less than 50ml Drains:2 TONI x1 thoracic x1 lumbar Fluids:1800 Urinary Output:335cc recorded from drummond Condition:Stable condition to PACU Complications:None apparent Specimen: X None Findings:_ Check one x Pharmacologic VTE prophylaxis not indicated _ Standard VTE prophylactic regimen ordered _ Pharmacologic VTE prophylaxis contraindicated due to increased risk of intraoperative and / or postoperative bleeding Check one _ No antibiotics indicated X Standard prophylactic antibiotic regimen ordered _ Antibiotic regimen changed due to concern for infection Assessment & Plan: 59 y/o F s/p T9-L3 revision PSIF/TLIF Weight bearing-WBATBLE, no bending twisting lifting > 10 lb PT/OT-Ordered, eval pending DVT prophylaxis-Early ambulation, SCDs Antibiotics-Ancef q8h while drain in place Home Medications-Restarted as appropriate Pain control-Standing tylenol, Oxy 5/10 PRN, IV for breakthrough Drain(s)-JPx 2 sewn, TL junction and lumbar spine Dressing Change(s)- At drain pull Labs-AM CBC, BMP Imaging-Completed in OR Diet -Carb consistent diet Bowels-Ordered Drummond-Removed at end of case Dispo-OPER, pending PT/OT, drain output, void -Enders Text [facility] [place] [place] OrthopedicsSpineResident/SCARLET with further questions -Please note that there are often times when all residents of the service may be scrubbed in surgery and may not be able to get back to your questions immediately. If there is truly urgent or emergent need regarding patient care, you may page 2002 who will triage and get back to our team. Otherwise, we will get back to you as soon as possible. Electronic Signature on File Electronically Reviewed/Signed by: Clifford Dunaway MD Author Signature Dt/Tm:03/28/2024 12:12 PM Resident Division of Orthopaedics Electronically Reviewed/Signed by: Augie Regalado MD Cosigner Signature Dt/Tm: 03/29/2024 09:56 AM Division of Orthopaedics [place] Patient Care team information Care Team Personnel Name: Kaye Maldonado Kayla Position: Pharmacist Member Role: Pharmacy - Lifetime Name: MD Jacinto, Kisha Garcias Position: Referring DIRECT Member Role: Primary Care Provider Address: [address] [place] [address] Name: Jo-Ann Snow Position: Rev Int - Panel Coverer Member Role: HIS Lifetime Care Team Related Persons Name: NIC RILEY Name: NIC RILEY
--- OUTSIDE RECORDS SUMMARY | 2024-06-22 06:13 | External Medical Summary | Summary of Care ---
Author Name Unknown Organization [facility] Address [address] [facility] [facility] [place] [address] Phone [phone] Care Team Providers Care Respiratory Care Program Director Name Role Phone Lewis Pleitez MD Primary Care Prov ider Reason for Visit * Reason Comments eRx-Medication Refill Encounter Details Date Type Department Care Team (Late st Contact Info) Description 12/28/2023 Refill Family Medicine [address] [place] [phone] Lewis Pleitez MD [address] [place] [address] [place] [id number] Lumbar degenerative disc disease Allergies Active Allergy Reactions Criticality Noted Date Comments Salicylates 09/01/2006 N/V Levofloxacin 04/11/2010 Skin rash Naproxen 10/01/2005 Nausea and vomiting documented as of this encounter (statuses as of 01/05/2024) Medications Medication Sig Dispensed Refills Start Date End Date Status Acetaminophen 325 MG Oral Tablet (Tylenol) Take 1 Tablet by mouth. As needed Active metFORMIN HCl ER 500 MG Oral Tablet Extended Release 24 Hour (Glucophage XR) Take 1 Tablet by mouth in the morning. 90 Tablet 3 07/30/2022 Active Cyclobenzaprine HCl 10 MG Oral Tablet (Flexeril)Indicati ons:Lumbar degenerative disc disease Take 1 Tablet by mouth in the morning and 1 Tablet before bedtime. 60 Tablet 3 09/10/2022 Active Mupirocin 2 % External Ointment (Bactroban)Indicat ions:Hydradenitis Apply topically to affected area 2 times a day. 30 g 3 11/05/2022 Active Omeprazole 40 MG Oral Capsule Delayed Release (PriLOSEC)Indicati ons:Gastroesophage al reflux disease without esophagitis Take 1 Capsule by mouth in the morning. 90 Capsule 1 08/14/2023 Active Lisinopril-hydroCH LOROthiazide 20-12.5 MG Oral Tablet Take 1 Tablet by mouth in the morning. 90 Tablet 1 08/20/2023 Active Atorvastatin Calcium 20 MG Oral Tablet (Lipitor) TAKE ONE TABLET BY MOUTH IN THE MORNING 90 Tablet 11/19/2023 Active Gabapentin 600 MG Oral Tablet (Neurontin) Take 1 Tablet by mouth in the morning and 1 Tablet at noon and 1 Tablet before bedtime. 270 Tablet 11/24/2023 Active DULoxetine HCl 60 MG Oral Capsule Delayed Release Particles (Cymbalta)Indicati ons:Moderate episode of recurrent major depressive disorder (HCC) Take 1 Capsule by mouth in the morning. Do not cut, crush or chew. 90 Capsule 11/24/2023 Active Spironolactone 50 MG Oral Tablet (Aldactone)Indicat ions:Hydradenitis TAKE ONE TABLET BY MOUTH IN THE MORNING 90 Tablet 11/25/2023 Active Meloxicam 15 MG Oral Tablet (Mobic)Indications :Lumbar degenerative disc disease Take 1 Tablet by mouth in the morning. 30 Tablet 12/30/2023 Active Meloxicam 15 MG Oral Tablet (Mobic)Indications :Lumbar degenerative disc disease Take 1 Tablet by mouth in the morning. 30 Tablet 11/24/2023 4 Discontinued documented as of this encounter (statuses as of 01/05/2024) Active Problems Problem Noted Date Diagnosed Date [...] as of this encounter (statuses as of 01/05/2024) Resolved Problems Problem Noted Date Diagnosed Date Resolved Date OBESITY, BMI 30-34 (SEE ACTUAL BMI) 09/06/2009 10/21/2013 Overview: Per Obesity Taxonomy Hypertrophy of breast 04/28/20062012 Trigger finger 12/06/2002 04/11/2013 LOSS OF TEETH, ACQUIRED 02/2014 OBESITY, UNSPECIFIED 010 Overview: Per Obesity Taxonomy Tobacco use disorder 011 Carbuncle of trunk 3 HTN, goal below 140/90 03/13 documented as of this encounter (statuses as of 01/05/2024) Immunizations Name Administration Dates Next Due COVID-19, LNP-s, No Preserve , Brennon-sucrose, Ages 12+ (Pfizer) 12/31/2021,09/14/2020 PPD 11/18/2011,11/11/2011 Pneumococcal Conjugate Vacci ne, 20-valent ([id number]) 07/08/2022 Seasonal Influenza, PF, 6 M & above, IM , (FluLaval or Fluzone) 07/08/2022 Seasonal Influenza, Quadriva lent Hd (Fluzone Hd) 03/07/2020,04/05/2019,03/19/2018 Seasonal Influenza, Quadriva lent, No Preserve, IM 05/29/2015 Seasonal Influenza, Split, I IV3, With Preserve, Inj 04/11/2013,08/23/2012,05/07/2011 TDAP (age 10 and older)(Boostrix) 12/24/2021 TDAP, [...] Telephone Encounter - Lewis Pleitez MD - 12/30/2023 1:40 PM EDT Signed Prescriptions: Disp Refills Meloxicam 15 MG Oral Tablet (Mobic) 30 Tab*0 Sig: Take 1 Tablet by mouth in the morning. Authorizing Provider: LEWIS PLEITEZ * Telephone Encounter - Lewis Pleitez MD - 12/30/2023 1:40 PM EDT Please call the patient, Bianca will need to schedule an appointment for additional refills. * Telephone Encounter - TIDAL PETROLEUM, E-Rx Ss Inbound - 12/30/2023 10:09 AM EDT Pending Prescriptions: Disp Refills Meloxicam 15 MG Oral Tablet [Pharmacy Med *30 Tab*0 Sig: Take 1 Tablet by mouth in the morning. * Telephone Encounter - Jomar Cunningham senior clinician - 12/29/2023 4:23 PM EDT Pending Prescriptions: Disp Refills Meloxicam 15 MG Oral Tablet [Pharmacy Med *30 Tab*0 Sig: Take 1 Tablet by mouth in the morning. * Telephone Encounter - Jomar Cunningham senior clinician - 12/29/2023 4:22 PM EDT Received message from [facility] regarding patient needing an appointment and labs. Call Placed, Left message on voicemail advising of required labs and to call back for an appointment. Thanks, Jomar Franklin [facility] Flow Machine Operator [facility] 12/29/2023,4:22 PM * Telephone Encounter - Leann Abdalla [facility] - 12/29/2023 4:05 PM EDTPending Prescriptions: Disp Refills Meloxicam 15 MG Oral Tablet [Pharmacy Med *30 Tab*0 Sig: Take 1 Tablet by mouth in the morning. * Telephone Encounter - Lenan Abdalla [facility] - 12/29/2023 4:04 PM EDT Second attempt. Unable to authorize medication refills for pended medication(s) at this time. Part of the protocol criteria used for refill authorization was not satisfied. Per refill protocol patient should have routine labs on file within past year. Reviewed AMP report,Care Gaps/Health Maintenance, medications list, and for any routine labs typically ordered for thispatient. Lab orders placed. Please contact patient to schedule office visit with PRIMARY CARE and advise of labs ordered for blood draw AND URINE specimen (patient will have to be able to void to provide sample).. Recommend patient to fast if able for labs. Patient may still have water and regular medications. Advise to obtain labs before requesting the next refill. Last Visit: 11/05/2022 (in office), Visit date not found (telemedicine) Next Visit: Visit date not found After contacting patient, please forward request to Lewis Casey MD. Thanks, Leann Abdalla Clinical Pharmacist [facility] ([facility]) [phone] 12/29/2023, 4:05 PM documented in this encounter Plan of Treatment Upcoming Encounters Date Type Department Care Team (Late st Contact Info) Description 11/16/2024 1:00 PM EDT Office Visit Family Medicine [address] [place] [phone] Lewsi Pleitez MD [address] [place] [address] [place] [id number] Scheduled Procedures Name Priority Associated Diagnoses Date/Ti [...] Cancer Screening 03/20/2016 Depression Monitoring 05/17/2016 05/17/2015 COVID-19 Vaccine ( season) 2023 12/31/2021, 09/14/2020, 09/14/2020 GFR 07/08/2023 07/08/2022, 05/15, 07/23/2016, Additional history exists HbA1c 07/08/2023 07/08/2022 *BASELINE EKG FOR HTN 12/27/2023 Influenza Vaccine (FLU shot) (#1) 2024 07/08/2022, 03/07/2020, 04/05/2019, Additional history exists Lipid Panel 07/08/2027 07/08/2022, 08/25/2015 DTaP,Tdap,and Td Vaccines (3 - Td or Tdap) 12/25/2031 [...] disc documented in this encounter Care Teams Respiratory Care Program Director Relationship Specialty Start Date End Date Lewis Pleitez MD [address] [place] [address] [place] [id number] PCP - General Family Medicine 01/15/22 documented as of this encounter
[2024-06-22 06:48] LABS: Basophils # (auto) 0.01 K/uL (0.00-0.20); Basophils % (auto) 0.1 %; Hematocrit (blood only) 27.6 % (37.0-47.0); Hemoglobin 9.1 g/dl (12.0-16.0); Immature Granulocytes # (auto) 0.06 K/uL (0.01-0.20); Immature Granulocytes % (auto) 0.6 %; Lymphocytes # (auto) 0.79 K/uL (1.20-3.40); Mean Corpuscular Hemoglobin 29.7 pg (25.0-34.0); Mean Corpuscular Volume 90.2 fL (80.0-100.0); Mean Platelet Volume 10.3 fL (9.4-12.4); Neutrophils % (auto) 89.3 %; Platelet Count 292 K/uL (130-400); RDW Coefficient of Variation 13.9 % (11.5-14.5); RDW Standard Deviation 45.7 fL (36.4-46.3); Red Blood Count 3.06 M/uL (4.20-5.40); White Blood Count 9.86 K/ul (4.8-10.8)
[2024-06-22 07:07] LABS: Troponin I High Sensitivity 8.8 pg/ml (0-14)
[2024-06-22 07:22] LABS: BUN Creatinine Ratio 21.3 (10-20); Calcium 9.3 mg/dl (8.6-10.3); Creatinine Clr Calc Pharmacy 58.6 ml/min; Magnesium 2.1 mg/dl (1.7-2.4); Potassium 4.3 mmol/L (3.5-5.1)
[2024-06-22 07:25] LABS: Folate (Folic Acid),Ser orPlas 4.75 ng/ml (>5.38)
[2024-06-22] MEDS: ALBUT/IPRATROP 3MG/0.5MG NEB 3 ML VIAL NEB SCH (07:54)
[2024-06-22] MEDS: methylPREDNISolone 40 MG in SYRINGE 0 ML IV SCH (08:31)
[2024-06-22] MEDS: LISINOPRIL/HCTZ 20/12.5MG 1 TAB TAB PO SCH (08:32)
[2024-06-22] MEDS: GABAPENTIN 600 MG TAB PO SCH (08:32)
[2024-06-22] MEDS: DULoxetine HCL 60 MG CAP PO SCH (08:32)
[2024-06-22] MEDS: ENOXAPARIN INJ 40 MG/0.4 ML SYR SQ SCH (08:33)
[2024-06-22] MEDS: PANTOprazole 40 MG TAB PO SCH (08:36)
[2024-06-22] MEDS ORDERED: methylPREDNISolone 125 MG/2 ML VIAL IV SCH (09:00)
[2024-06-22] MEDS: DOXYCYCLINE HYCLATE 100 MG in DEXTROSE 5% MINI-B 100 ML IV SCH (09:15)
[2024-06-22 09:39] LABS: Appearance Urine Clear (Clear); Bacteria Urine Automated None Seen (None Seen); Bilirubin Urine Negative (Negative); Blood Urine 2+ (Negative); Color Urine Yellow; Glucose Urine UA Negative (Negative); Ketones Urine Negative (Negative); Leukocyte Esterase Urine Negative (Negative); Nitrite Urine Negative (Negative); Protein Urine 2+ (Negative); Specific Gravity Urine 1.038 (1.000-1.030); Urobilinogen Urine Negative (Negative); WBC Urine Automated 0-5 /hpf (0-5)
--- NOTE | 2024-06-22 13:11 | Communication Note ---
Date of Service: June 22, 2024 Patient was seen and examined at bedside. 59 yo F w/ PMH of hyperlipidemia, hypokalemia, prediabetes, Raynaud's syndrome, hypertension, GERD, sacroiliitis, osteoarthritis, left mastoid cholesteatoma, general osteoarthritis, hidradenitis, lumbar degenerative disc disease, depression, history of tobacco use, cervical spinal stenosis, presents with shortness ongoing for last 2 days [employer] a/w productive cough, pt unable to comment on color of sputum as she is not spitting it out. Denies any fevers. No headache. In the ER she was 87% on room air. On 2 L saturating okay. Patient smokes half pack a day. She is being managed for the following: Community acquired pneumonia: Presents with shortness of breath for 2 days a/w cough Admitting CT scan showing multifocal ill-defined confluent groundglass opacities predominantly in the central right lung Resp BioFire negative, COVID neg. Possible community-acquired pneumonia c/w Rocephin and Doxy WBC trended down. Pt reports improvement in her sob, cough and feels a lot better today. Close monitor Possible mild COPD exacerbation Ongoing tobacco abuse Nebs [id number] and as needed tobacco cessation counselling done. Antibiotics as above Short course of steroids, taper down to po in AM Likely demand ischemia: Troponin mildly elevated at 17.1 at admission, down trended. Demand ischemia in the setting of acute illness. Patient with no chest pain. EKG with no acute ST or T changes. Echo reviewed, no regional wall motion abnormality noted, EF of 65 to 70%. Hypomagnesemia: Admitting magnesium 1.4, repleted. Currently stable. Acute kidney injury: Baseline creatinine of 0.9, admitting creatinine of 1.4, holding nephrotoxic BP meds, continue with IV fluid, follow repeat labs in AM. Hypertension: Holding lisinopril and hydrochlorothiazide and spironolactone for SLIME. IV labetalol if needed. Anemia: Hemoglobin gradually dropping from 2018 per chart review. Admitting hemoglobin of 9.4. MCV 90. Iron study with low iron level and low transferrin saturation, vitamin B12 and folate level low. Start iron, folate, b12 supplement. repeat iron studies, folate and b12 level in 3 months. Fobt sent, await. Other chronic medical conditions: Continue with/resume home meds as and when able Prediabetes: Follow HbA1c levels Hypokalemia: History of, will follow labs, monitor and replete. Depression: Continue home duloxetine GERD: Continue home PPI Hyperlipidemia: Continue home statin DVT prophylaxis: Lovenox. Monitor h and h Disposition: Med/telemetry Full code. For detailed information on the patient, refer to today's H&P note.
[2024-06-22] MEDS: FERROUS SULFATE 325 MG TAB PO SCH (13:53)
[2024-06-22] MEDS: CYANOCOBALAMIN (B-12) 500 MCG TABLET PO SCH (13:53)
[2024-06-22] MEDS: FOLIC ACID 1 MG TAB PO SCH (13:54)
[2024-06-22] MEDS: IRON SUCROSE 200 MG in SODIUM CHLORIDE 0.9% 100 ML IV ONE (17:03)
[2024-06-22] MEDS: cefTRIAXone SODIUM 2,000 MG/50 ML BAG IV SCH (20:26)
[2024-06-22] MEDS: ATORVASTATIN 20 MG TAB PO SCH (20:27)
[2024-06-22] MEDS: HYDROCODONE/ACETAMOPHEN 5/325MG TAB PO PRN (21:31)
--- NOTE | 2024-06-23 06:44 | Electrocardiogram Report ---
Test Reason : Blood Pressure : */* mmHG Vent. Rate : 105 BPM Atrial Rate : 105 BPM P-R Int : 122 ms QRS Dur : 70 ms QT Int : 312 ms P-R-T Axes : 76 46 67 degrees QTcB Int : 412 ms Sinus tachycardia Nonspecific ST abnormality Abnormal ECG When compared with ECG of 16-Mar-2023 21:35, No significant change was found Confirmed by Tico Mcneil ([id number]) on 06/23/2024 6:44:38 AM Referred By: REFERRED SELF Confirmed By: Tico Mcenil
[2024-06-23 06:45] LABS: Hemoglobin 8.3 g/dl (12.0-16.0); Mean Corpuscular Hemoglobin 29.7 pg (25.0-34.0); Mean Corpuscular Hgb Conc 33.2 g/dL (32.0-36.0); Mean Corpuscular Volume 89.6 fL (80.0-100.0); Mean Platelet Volume 10.4 fL (9.4-12.4); Platelet Count 286 K/uL (130-400); RDW Coefficient of Variation 13.8 % (11.5-14.5); RDW Standard Deviation 45.5 fL (36.4-46.3); Red Blood Count 2.79 M/uL (4.20-5.40); White Blood Count 15.02 K/ul (4.8-10.8)
[2024-06-23 06:59] LABS: Calcium 8.7 mg/dl (8.6-10.3); Creatinine Clr Calc Pharmacy 50.6 ml/min; Magnesium 1.9 mg/dl (1.7-2.4); Potassium 4.4 mmol/L (3.5-5.1)
[2024-06-23 07:04] LABS: Estimated Average Glucose 134 mg/dl; Hemoglobin A1C 6.3 % (4.5-5.6)
[2024-06-23] MEDS: SODIUM CHLORIDE 0.9% 1,000 ML IV SCH (09:16)
[2024-06-23] MEDS: IRON SUCROSE 400 MG in SODIUM CHLORIDE 0.9% 250 ML IV ONE (11:01)
[2024-06-23 11:12] VITALS: BP 163/91; TEMP 97.9
[2024-06-23 11:40] VITALS: PULSE 88; RESP 18; O2SAT 93
--- NOTE | 2024-06-23 13:00 | Discharge Summary ---
Date of Service June 23, 2024 Admission HPI Per Admitting Provider 59-year-old female with past medical history significant for hyperlipidemia, hypokalemia, prediabetes, Raynaud's syndrome, hypertension, GERD, sacroiliitis, osteoarthritis, left mastoid cholesteatoma, general osteoarthritis, hidradenitis, lumbar degenerative disc disease, depression, history of tobacco use, cervical spinal stenosis, presents with shortness ongoing for last 2 days and also cough. Denies any fevers. No headache. No runny nose or sore throat. No chest pain. No nausea and abdominal pain. Normal bowel and bladder movements. In the ER she was 87% on room air. On 2 L saturating okay. Patient smokes half pack a day. Past medical history. As mentioned above. Past surgical history. Left carpal tunnel surgery. . Colonoscopy. Exploration of abdomen. Knee arthroscopy. Ligation oviducts. Lumbar spine fusion surgery. Radical mastoid surgery for cholesteatoma on left side. Reduction of breast. Sinus surgery. Total abdominal hysterectomy with removal of tubes. Right thumb trigger finger release. Social history. . Smokes half pack of cigarettes daily. No alcohol use. No drug use. Family history. Father had kidney cancer. Mother had breast cancer. Hyper tension. Paternal grandmother had breast cancer. Paternal grandmother had diabetes. Paternal grandfather had heart disorder. Admission Exam Per Admitting Provider General- Not in distress Head- atraumatic Eyes- PERRL. ENT- oropharynx clear Neck- supple, no JVD. Lungs- clear to auscultation mild occasional wheezing, no crackles Heart- regular rhythm; no murmur, no gallop. Abdomen- normal bowel sounds, soft, nontender, no distension Extremities- no pretibial edema, no erythema seen Neuro- alert, oriented PERRL, no facial palsy; no dysarthria; moves extremities Principal Diagnosis Community acquired pneumonia Possible mild COPD exacerbation Ongoing tobacco abuse Acute kidney injury Anemia Discharge Exam General- Not in distress Head- atraumatic Eyes- PERRL. ENT- oropharynx clear Neck- supple, no JVD. Lungs- clear to auscultation, improved occasional wheezing from yesterday, no crackles Heart- regular rhythm; no murmur, no gallop. rates in 80s. Abdomen- normal bowel sounds, soft, nontender, no distension Extremities- no pretibial edema, no erythema seen Neuro- alert, oriented PERRL, no facial palsy; no dysarthria; moves extremities Discharge Data Allergies Allergy/AdvReac Type Severity Reaction Status Date / Time aspirin Allergy Intermediate RASH, SICK Verified 02/06/23 00:00 TO STOMACH celecoxib Allergy Intermediate rash Verified 02/06/23 00:00 levofloxacin Allergy Intermediate NAUSEA AND Verified 02/06/23 00:00 VOMITING, RASH naproxen Allergy Intermediate RASH, GI Verified 02/06/23 00:00 upset Consultations 06/21/24 22:38 ED Decision to Admit Stat Ordered Studies 06/21/24 19:51 CT angio chest PE protocol Stat Hospital Course (1) Community acquired pneumonia: Plan 59 yo F w/ PMH of hyperlipidemia, hypokalemia, prediabetes, Raynaud's syndrome, hypertension, GERD, sacroiliitis, osteoarthritis, left mastoid cholesteatoma, general osteoarthritis, hidradenitis, lumbar degenerative disc disease, depression, history of tobacco use, cervical spinal stenosis, presents with shortness ongoing for last 2 days [employer] a/w productive cough, pt unable to comment on color of sputum as she is not spitting it out. Denies any fevers. No headache. In the ER she was 87% on room air. On 2 L saturating okay. Patient smokes half pack a day. She was managed for the following: Community acquired pneumonia: Presents with shortness of breath for 2 days a/w cough Admitting CT scan showing multifocal ill-defined confluent groundglass opacities predominantly in the central right lung Resp BioFire negative, COVID neg. Possible community-acquired pneumonia c/w Rocephin and Doxy, to po atb on dc, add probiotic. WBC up today due to steroid use. Patient reports significant improvement in her respiratory symptoms, reports no shortness of breath and is not needing oxygen. Reports cough getting a lot better. Patient is hemodynamically stable and would like to go home. Possible mild COPD exacerbation Ongoing tobacco abuse Nebs [id number] and as needed Heart rate elevated likely secondary to schedule use. Patient now does not have any wheezing, can continue with oral steroid upon discharge. Patient is not needing any oxygen. tobacco cessation counselling done. Antibiotics as above Likely demand ischemia: Troponin mildly elevated at 17.1 at admission, down trended. Demand ischemia in the setting of acute illness. Patient with no chest pain. EKG with no acute ST or T changes. Echo reviewed, no regional wall motion abnormality noted, EF of 65 to 70%. Hypomagnesemia: Admitting magnesium 1.4, repleted. Currently stable. Acute kidney injury: Baseline creatinine of 0.9, admitting creatinine of 1.4, holding nephrotoxic BP meds, Patient to follow-up with PCP within a week time upon discharge to follow-up on renal functions. Hypertension: Holding lisinopril and hydrochlorothiazide and spironolactone for SLIME. Patient's blood pressure has been soft, patient finally started to eat better, blood pressure slowly getting better. Anemia: Hemoglobin gradually dropping from 2018 per chart review. Admitting hemoglobin of 9.4. MCV 90. Iron study with low iron level and low transferrin saturation, vitamin B12 and folate level low. Start iron, folate, b12 supplement. repeat iron studies, folate and b12 level in 3 months. Fobt sent, await. Patient denies any blood in stool or black stool. Patient advised to follow-up with PCP office for colonoscopy referral. Patient voiced understanding. Other chronic medical conditions: Continue with/resume home meds as and when able Prediabetes: Follow HbA1c levels Hypokalemia: History of, will follow labs, monitor and replete. Depression: Continue home duloxetine GERD: Continue home PPI Hyperlipidemia: Continue home statin DVT prophylaxis: Lovenox. Monitor h and h Disposition: Med/telemetry Full code. Patient is being discharged to home with following instruction at the point of discharge: Follow-up with your primary care physician within a week time and likely you will need labs CBC/CMP/magnesium/phosphorus. You will be discharged on antibiotic to complete the course for pneumonia. Probiotics will be added. For your mild COPD exacerbation, continue to take tapering dose of steroids as prescribed. Take your steroid with meals to avoid GI side effects. Continue to take your home omeprazole. Given your acute kidney injury, continue to hold your lisinopril, hydrochlorothiazide, Aldactone for next 3 days. You can then resume your medication but you will need to follow-up with the PCP office within a week time to follow-up on your renal functions status. Measure your Blood pressure twice a day , if higher than 150/85 mmHg, you can resume your lisinopril earlier. As discussed at the bedside, your blood levels were low, you were noted to have iron deficient as well as deficiency of folic acid and vitamin B12. You received IV iron while in hospital, you are being discharged on oral supplements for iron/folate/vitamin B12. You will need repeat levels of iron/folate/vitamin B12 in 3 months, coordinate with your PCP office to set up the test. You will benefit from colonoscopy as an outpatient, coordinate with your PCP office to set up the referral. Recommend you completely stop using tobacco. Take your medications as prescribed. Please make sure that you are able to get your medications today by calling your pharmacy before you leave the hospital so that your treatment continuity is not broken. Home Health Attestation I certify that this patient is under my care and that I, or a physicians phlebotomist lab assistant working with me, had a face to-face encounter that meets the home health [id number] encounter requirements with this patient. The encounter with the patient was in whole, or in part, for the following medical condition, which is the primary reason for home health care (list medical condition): I certify that, based on my findings, the following services are medically necessary home health services: My clinical findings support the need for the above services because: Further, I certify that my clinical findings support that this patient is homebound (i.e. absences from home require considerable and taxing effort and are for medical reasons or voodoo services or infrequently or of short duration when for other reasons) because: Certification for Home Health Services: Based on the above findings, I certify that this patient is confined to the home and needs intermittent snf care, physical therapy and/or speech therapy or continues to need occupational therapy. The patient is under my care, and I have initiated the establishment of the plan of care. This patient will be followed by a physician who will periodically review the plan of care. Total Time Total Time Spent Total Time Spent (In Minutes): 35 Discharge Plan Discharge Items Patient Disposition: Home - Self-Care Reason For Visit: SOB, PNEUMONIA Discharge Diagnosis: Community acquired pneumonia Possible mild COPD exacerbation Ongoing tobacco abuse Acute kidney injury Anemia Activity: Resume your previous activity Non-emergency contact: Primary Care Provider Call non-emergency contact if: you have any medication questions, your symptoms worsen and your temperature is above 101 Follow-up/Referrals: Kisha Casey MD [Primary Care Provider] - (Date & Time 06/30/2024 2:00 PM Provider: Danielle Shelton CRNP Department: Family Medicine [facility] ) Diet: Heart Healthy Addtl Attending Provider Instructions: Follow-up with your primary care physician within a week time and likely you will need labs CBC/CMP/magnesium/phosphorus. You will be discharged on antibiotic to complete the course for pneumonia. Probiotics will be added. For your mild COPD exacerbation, continue to take tapering dose of steroids as prescribed. Take your steroid with meals to avoid GI side effects. Continue to take your home omeprazole. Given your acute kidney injury, continue to hold your lisinopril, hydrochlorothiazide, Aldactone for next 3 days. You can then resume your medication but you will need to follow-up with the PCP office within a week time to follow-up on your renal functions status. Measure your Blood pressure twice a day , if higher than 150/85 mmHg, you can resume your lisinopril earlier. As discussed at the bedside, your blood levels were low, you were noted to have iron deficient as well as deficiency of folic acid and vitamin B12. You received IV iron while in hospital, you are being discharged on oral supplements for iron/folate/vitamin B12. You will need repeat levels of iron/folate/vitamin B12 in 3 months, coordinate with your PCP office to set up the test. You will benefit from colonoscopy as an outpatient, coordinate with your PCP office to set up the referral. Recommend you completely stop using tobacco. Take your medications as prescribed. Please make sure that you are able to get your medications today by calling your pharmacy before you leave the hospital so that your treatment continuity is not broken. Pending Studies at Discharge: No Stand-Alone Forms: [facility], Sm[facility] Cessation Medications and DC Order Prescriptions: New ferrous sulfate 325 mg (65 mg iron) Tablet,Delayed Release (Dr/Ec) 325 mg PO QAM Qty: 30 0RF cyanocobalamin (vitamin B-12) 500 mcg Tablet 500 mcg PO QAM Qty: 30 0RF folic acid 1 mg Tablet 1 mg PO QAM Qty: 30 0RF cefdinir 300 mg capsule 300 mg PO BID 6 Days Qty: 12 0RF doxycycline hyclate 100 mg capsule 100 mg PO BID 6 Days Qty: 12 0RF Probiotic 3 billion cell capsule 3,000 mmu cells PO DAILY 14 Days Qty: 14 0RF Rx Instructions: administer with a meal prednisone 20 mg tablet 20 mg PO UD 5 Days Qty: 8 0RF Rx Instructions: 40 mg daily x 3 days, then 20 mg daily x 2 days, then stop. Continued gabapentin 600 mg tablet 600 mg PO TID omeprazole 40 mg capsule,delayed release(DR/EC) 40 mg PO QAM atorvastatin 20 mg tablet 20 mg PO QPM duloxetine 60 mg capsule,delayed release(DR/EC) 60 mg PO DAILY hydrocodone-acetaminophen 5-325 mg tablet 1 tab PO UD PRN (Reason: Pain) Held lisinopril-hydrochlorothiazide 20-12.5 mg tablet 1 tab PO QAM Hold Instructions: Resume on 06/27/24. spironolactone 50 mg tablet 50 mg PO QAM Hold Instructions: Resume on 06/27/24. Discharge Orders: Discharge Order (Routine); Ordered 06/23/24 Ordered By: Perlita Rios/Other Patient Handouts: Prediabetes, 5 Steps for Eating Healthier Admission Data Admit Date/Time: 06/22/24 00:41 Attending Provider: Perlita Alaniz Admit Provider: Beny Frankel Primary Care Provider: Kisha Casey Other Providers: Beny Frankel
== END 2024-06-23 13:55 | disposition home or self-care (01) | DRG 194 ==
LOC: ED 18:25 → 2W 06-22 00:41 → SUATTDRO 06-22 00:41 → 2W 06-22 01:41